=== PATIENT | female | born 1960 | race Hispanic/Latino ===

== ENCOUNTER 2018-07-07 09:39 | Emergency (ER) | payer OTHER ==
[2018-07-07 10:39] LABS: Absolute Lymphocytes (CBC) 1.2 K/uL (0.7-4.9); Absolute Monocytes 0.4 K/uL (0.1-1.3); Absolute Neutrophil 4.6 K/uL (1.8-8.0); Basophils % 0.5 % (0-1.3); Hematocrit 31.9 % (36.0-45.0); Lymphocytes % 17.7 % (15.3-44.8); MCH 25.9 pg (27.0-35.0); MCV 78.9 fL (80-100); MPV 7.6 fL (7.6-11.3); Monocytes % 6.7 % (3.3-12.3); RBC Red Blood Cell Count 4.04 M/uL (3.86-4.86)
[2018-07-07] MEDS ORDERED: FUROSEMIDE 20 MG/ 2ML VIAL ONE (10:40)
[2018-07-07] MEDS ORDERED: HYDROCODONE/APAP 5/325 MG TAB ONE (10:40)
[2018-07-07 10:45] LABS: Protime INR 1.08
--- NOTE | 2018-07-07 10:51 | RAD REPORT ---
EXAM DESCRIPTION: RAD - Chest Single View - 07/07/2018 10:39 am CLINICAL HISTORY: SOB Chest pain. COMPARISON: Chest Single View dated 10/08/2017; Chest Single View dated 06/03/2017; Chest Pa And Lat ( 2 Views) dated 02/15/2017; Chest Pa And Lat (2 Views) dated 01/11/2017 FINDINGS: Portable technique limits examination quality. Mild interstitial pulmonary edema is present. The heart is mildly enlarged in size. No displaced frac tures. IMPRESSION: Mild CHF versus volume overload pattern.
[2018-07-07 11:04] LABS: ALT/SGPT 21 U/L (12-78); AST/SGOT 15 U/L (15-37); Albumin 3.1 g/dL (3.4-5.0); Alkaline Phosphatase 119 U/L (45-117); BUN Blood Urea Nitrogen 22 mg/dL (7-18); Bicarbonate 27 mmol/L (21-32); Bilirubin Direct < 0.1 mg/dL (0-0.2); Bilirubin Total 0.2 mg/dL (0.2-1.0); Glucose Level 215 mg/dL (74-106); NT PRO-BNP 856 pg/mL (<125); Protein, Total 7.8 g/dL (6.4-8.2); Sodium Level 138 mmol/L (136-145); Troponin (Emerg Dept Use Only) < 0.02 ng/mL (0.0-0.045)
[2018-07-07 11:06] LABS: Magnesium 1.2 mg/dL (1.8-2.4)
[2018-07-07] MEDS ORDERED: MAGNESIUM SULFATE 1 gm IVPB 1 GM/100 ML BAG IV ONE (11:18)
--- NOTE | 2018-07-07 11:32 | RAD REPORT ---
EXAM DESCRIPTION: US - Extrem Venous W Compress Puma - 07/07/2018 11:16 am CLINICAL HISTORY: Lower leg pain, swelling Bilateral leg edema and swelling. COMPARISON: No comparisons TECHNIQUE: Real-time sonographic interrogation of the left and right lower extremity deep venous sys tems was performed. FINDINGS: Normal compressibility, flow augmentation, phasic flow and spontaneous flow is identified in both the left and right lower extremity deep venous systems. IMPRESSION: No sonographic evidence of left or right lower extremity deep venous thrombosis.
[2018-07-07 11:33] LABS: Urine Blood NEGATIVE (NEG); Urine Glucose NEGATIVE (NEG); Urine Protein NEGATIVE (NEG); Urine pH 5.5 (5.0-7.0)
--- NOTE | 2018-07-07 13:12 | ER ---
Nurse's Notes [facility] Name: Tessie Michaud Age: 58 yrs Sex: Female : 1960 Arrival Date: 07/07/2018 Time: 09:42 Bed 7 Private MD: Mike Ritchie Diagnosis: Edema, unspecified Presentation: 07/07 09:55 Presenting complaint: Patient states: my legs are swollen for about a week now; pain is hj 10/10; hx of CHF; reports SOB; denies fever and chills;. Transition of care: patient was not received from another setting of care. Onset of symptoms was July 07, 2018. Risk Assessment: Do you want to hurt yourself or someone else? Patient reports no desire to harm self or others. Initial Sepsis Screen: Does the patient meet any 2 criteria? No. Patient's initial sepsis screen is negative. Does the patient have a suspected source of infection? No. Patient's initial sepsis screen is negative. Care prior to arrival: None. 09:55 Method Of Arrival: Ambulatory 09:55 Acuity: KATIA 3 hj Triage Assessment: 10:00 General: Appears in no apparent distress. uncomfortable, obese, Behavior is calm, hj cooperative, appropriate for age. Pain: Complains of pain in right leg and left leg. Historical: - Allergies: 09:59 No Known Allergies; hj - Home Meds: 09:59 Albuterol Inhl [Active]; benzonatate Oral [Active]; esomeprazole magnesium Oral hj [Active]; Furosemide Oral [Active]; gabapentin Oral [Active]; Glimepiride Oral [Active]; insulin regular human inhalation [Active]; Levothroid Oral [Active]; losartan Oral [Active]; mometasone inhalation [Active]; montelukast Oral [Active]; potassium chloride (bulk) miscellaneous [Active]; Simvastatin Oral [Active]; pioglitazone Oral [Active]; Naproxen Oral [Active]; - PMHx: 10:00 Diabetes - NIDDM; Hyperlipidemia; hj - PSHx: 10:00 Cervical Cancer; hj - Immunization history:: Adult Immunizations not immunized. - Social history:: Smoking status: Patient/guardian denies using tobacco, Patient/guardian denies using alcohol. - Ebola Screening: : Patient negative for fever greater than or equal to 101.5 degrees Fahrenheit, and additional compatible Ebola Virus Disease symptoms Patient denies exposure to infectious person Patient denies travel to an Ebola-affected area in the 21 days before illness onset. Screenin:00 Abuse screen: Denies threats or abuse. Denies injuries from another. Nutritional hj screening: No deficits noted. Tuberculosis screening: No symptoms or risk factors identified. Fall Risk None identified. Assessment: 10:30 General: Appears in no apparent distress. comfortable, well groomed, well developed, sg well nourished, Behavior is calm, cooperative, appropriate for age. Pain: Complains of pain in right foot and left foot and right leg. Neuro: Level of Consciousness is awake, alert, obeys commands, Oriented to person, place, time, situation, Driver Wheelchair are equal bilaterally Moves all extremities. Full function Speech is normal, Facial symmetry appears normal. Cardiovascular: Capillary refill is brisk in bilateral fingers Patient's skin is warm and dry. Chest pain is denied. Respiratory: Reports cough that is non-productive, sinus congestion and sinus pain Airway is patent Respiratory effort is even, unlabored, Respiratory pattern is regular, symmetrical, Breath sounds are clear. GI: Abdomen is round non-distended, obese, Bowel sounds present X 4 quads. Reports normal bowel habits, tolerance of fluids, tolerance of food. : No signs and/or symptoms were reported regarding the genitourinary system. EENT: No signs and/or symptoms were reported regarding the EENT system. Derm: Skin is pink, warm \T\ dry. Musculoskeletal: Capillary refill is brisk, in bilateral fingers. Swelling present in right foot, left foot and right leg. 12:30 Reassessment: Patient appears in no apparent distress at this time. Patient and/or sg family updated on plan of care and expected duration. Pain level reassessed. Patient is alert, oriented x 3, equal unlabored respirations, skin warm/dry/pink. Patient states feeling better. Vital Signs: 10:00 BP 128 / 54; Pulse 79; Resp 18; Temp 97.9(O); Pulse Ox 98% on R/A; Weight 124.74 kg; hj Height 5 ft. 2 in. (157.48 cm); Pain 10/10; 11:41 BP 140 / 77; Pulse 76; Resp 16; Pulse Ox 98% on R/A; sg 13:11 BP 128 / 59; Pulse 77; Resp 20; Pulse Ox 100% on R/A; sg 10:00 Body Mass Index 50.30 (124.74 kg, 157.48 cm) hj ED Course: 09:42 Patient arrived in ED. mr 09:43 Mike Ritchie MD is Private Physician. mr 09:57 Triage completed. hj 10:00 Arm band placed on left wrist. hj 10:00 Patient has correct armband on for positive identification. Placed in gown. Bed in low hj position. Call light in reach. Side rails up X 1. 10:04 Reid Pulido PA is PHCP. jmm 10:04 Demarco Rinaldi MD is Attending Physician. jmm 10:37 Sergo Vences, TODD is Primary Nurse. sg 10:39 X-ray completed. Portable x-ray completed in exam room. Patient tolerated procedure la2 well. 10:39 XRAY Chest (1 view) In Process Unspecified. EDMS 10:40 Initial lab(s) drawn, by wa, sent to lab. Inserted saline lock: 22 gauge in right sg forearm, using aseptic technique. Blood collected. 10:41 EKG done, by ED staff, reviewed by Reid SANTIAGO. jb1 11:14 Ultrasound completed. Patient tolerated well. sg3 11:16 US Extremity Venous W Compression Puma In Process Unspecified. EDMS 13:11 Mike Ritchie MD is Referral Physician. [facility] 13:30 No provider procedures requiring assistance completed. IV discontinued, intact, sg bleeding controlled, No redness/swelling at site. Pressure dressing applied. Administered Medications: 10:40 Drug: [place] 5 mg-325 mg 1 tabs Route: PO; sg 11:09 Follow up: Response: No adverse reaction sg 11:30 Drug: Magnesium Sulfate 1 grams Route: IVPB; Infused Over: 1 hrs; Site: right forearm; sg 12:40 Follow up: Response: No adverse reaction; IV Status: Completed infusion sg 13:20 Drug: Lasix 20 mg Route: IVP; Site: right femoral; sg 13:32 Follow up: Response: No adverse reaction sg Outcome: 13:11 Discharge ordered by . jmm 13:30 Discharged to home ambulatory, with family. sg 13:30 Condition: good 13:30 Discharge instructions given to patient, Instructed on discharge instructions, follow up and referral plans. no drinking with medication, no driving heavy equipment, medication usage, safety practices, Demonstrated understanding of instructions, follow-up care, medications, Prescriptions given X 2. 13:34 Patient left the ED. sg Signatures: Dispatcher [employer] EDMS Quinten Luna jb1 Sergo Vences RN RN Reid Pulido PA PA jmm Rivera, Mary mr Santos Elizabeth RN TODD Raquel Reid RN RN jl7 Ardoin, Leslie la2 Kathleen Hartley sg3 Corrections: (The following items were deleted from the chart) 10:02 10:00 Pulse 79bpm; Resp 18bpm; Pulse Ox 98% RA; Temp 97.9F Oral; 124.74 kg; Height 5 hj ft. 2 in.; BMI: 50.3; Pain 10/10; hj 11:02 10:12 Raquel Reid RN is Primary Nurse. merlyn zuleta 11:29 10:30 Musculoskeletal: No signs and/or symptoms reported regarding the musculoskeletal sg system. sg
--- NOTE | 2018-07-07 13:12 | EDPHYS ---
Physician Documentation [facility] Name: Tessie Michaud Age: 58 yrs Sex: Female : 1960 Arrival Date: 07/07/2018 Time: 09:42 Bed 7 Private MD: Mike Ritchie ED Physician Demarco Rinaldi HPI: 07/07 10:17 This 58 yrs old Female presents to ER via Ambulatory with complaints of Feet jmm Swelling. 10:17 The patient presents with pain, that is acute. The complaints affect the right leg. jmm Onset: The symptoms/episode began/occurred acutely. Associated signs and symptoms: Pertinent positives: swelling. This is a 58 year old female with a history of CHF, HTN, HLP that presents to the ED with lower extremity swelling and pain for the past week. Patient states swelling has decreased on the left side. Also complains of a sinus congestion and shortness of breath. . Historical: - Allergies: 09:59 No Known Allergies; hj - Home Meds: 09:59 Albuterol Inhl [Active]; benzonatate Oral [Active]; esomeprazole magnesium Oral hj [Active]; Furosemide Oral [Active]; gabapentin Oral [Active]; Glimepiride Oral [Active]; insulin regular human inhalation [Active]; Levothroid Oral [Active]; losartan Oral [Active]; mometasone inhalation [Active]; montelukast Oral [Active]; potassium chloride (bulk) miscellaneous [Active]; Simvastatin Oral [Active]; pioglitazone Oral [Active]; Naproxen Oral [Active]; - PMHx: 10:00 Diabetes - NIDDM; Hyperlipidemia; hj - PSHx: 10:00 Cervical Cancer; hj - Immunization history:: Adult Immunizations not immunized. - Social history:: Smoking status: Patient/guardian denies using tobacco, Patient/guardian denies using alcohol. - Ebola Screening: : Patient negative for fever greater than or equal to 101.5 degrees Fahrenheit, and additional compatible Ebola Virus Disease symptoms Patient denies exposure to infectious person Patient denies travel to an Ebola-affected area in the 21 days before illness onset. ROS: 10:27 Constitutional: Negative for fever, chills, and weight loss, Cardiovascular: Negative jmm for chest pain, palpitations, and edema, Abdomen/GI: Negative for abdominal pain, nausea, vomiting, diarrhea, and constipation. 10:27 Respiratory: Positive for shortness of breath. 10:27 MS/extremity: Positive for pain. 10:27 All other systems are negative. Exam: 10:27 Head/Face: atraumatic. Eyes: EOMI, no conjunctival erythema appreciated ENT: Moist [facility] Mucus Membranes Chest/axilla: Normal chest wall appearance and motion. Cardiovascular: Regular rate and rhythm. No edema appreciated Respiratory: Normal respirations, no respiratory distress appreciated 10:27 Constitutional: The patient appears in no acute distress, alert, awake. 10:27 Abdomen/GI: Inspection: obese Bowel sounds: normal. 10:27 Back: ROM is normal. 10:27 Musculoskeletal/extremity: ROM: intact in all extremities. 10:27 Skin: Appearance: Color: normal in color. 10:27 Neuro: Orientation: is normal, Mentation: is normal, Memory: is normal. 10:27 Psych: Behavior/mood is pleasant, cooperative. 10:27 Musculoskeletal/extremity: Edema noted to the right lower leg, full dorsalis pedis [facility] pulse, compartments are soft. Vital Signs: 10:00 BP 128 / 54; Pulse 79; Resp 18; Temp 97.9(O); Pulse Ox 98% on R/A; Weight 124.74 kg; hj Height 5 ft. 2 in. (157.48 cm); Pain 10/10; 11:41 BP 140 / 77; Pulse 76; Resp 16; Pulse Ox 98% on R/A; sg 13:11 BP 128 / 59; Pulse 77; Resp 20; Pulse Ox 100% on R/A; sg 10:00 Body Mass Index 50.30 (124.74 kg, 157.48 cm) MDM: 10:17 Patient medically screened. [facility] 10:29 Data reviewed: vital signs, nurses notes. [facility] 12:52 Data reviewed: lab test result(s), EKG, radiologic studies, plain films, ultrasound. [facility] Counseling: I had a detailed discussion with the patient and/or guardian regarding: the historical points, exam findings, and any diagnostic results supporting the discharge/admit diagnosis, lab results, radiology results, the need for outpatient follow up, to return to the emergency department if symptoms worsen or persist or if there are any questions or concerns that arise at home. 13:10 ED course: I discussed the patient with Dr. Ritchie whom will see the patient in clinic [facility] tomorrow. Advises to increase furosemide to 40 mg BID. Patient is alert and non toxic in appearance in the ED. Vitals WNL. . 07/07 10:06 Order name: Basic Metabolic Panel; Complete Time: 11:09 [facility] 07/07 10:06 Order name: CBC with Diff; Complete Time: 10:47 [facility] 07/07 10:06 Order name: LFT's; Complete Time: 11:09 [facility] 07/07 10:06 Order name: Magnesium; Complete Time: 11:09 [facility] 07/07 10:06 Order name: NT PRO-BNP; Complete Time: 11:09 [facility] 07/07 10:06 Order name: PT-INR; Complete Time: 10:47 [facility] 07/07 10:06 Order name: Troponin (emerg Dept Use Only); Complete Time: 11:09 [facility] 07/07 10:06 Order name: XRAY Chest (1 view); Complete Time: 10:52 [facility] 07/07 10:06 Order name: EKG; Complete Time: 10:07 [facility] 07/07 10:20 Order name: US Extremity Venous W Compression Puma; Complete Time: 11:33 [facility] 07/07 11:28 Order name: Urine Dipstick--Ancillary (enter results); Complete Time: 11:44 07/07 10:06 Order name: Cardiac monitoring; Complete Time: 10:32 [facility] 07/07 10:06 Order name: EKG - Nurse/Tech; Complete Time: 10:54 [facility] 07/07 10:06 Order name: IV Saline Lock; Complete Time: 10:32 [facility] 07/07 10:06 Order name: Labs collected and sent; Complete Time: 10:32 [facility] 07/07 10:06 Order name: O2 Per Protocol; Complete Time: 10:32 [facility] 07/07 10:06 Order name: O2 Sat Monitoring; Complete Time: 10:32 jm Administered Medications: 10:40 Drug: [place] 5 mg-325 mg 1 tabs Route: PO; sg 11:09 Follow up: Response: No adverse reaction sg 11:30 Drug: Magnesium Sulfate 1 grams Route: IVPB; Infused Over: 1 hrs; Site: right forearm; sg 12:40 Follow up: Response: No adverse reaction; IV Status: Completed infusion sg 13:20 Drug: Lasix 20 mg Route: IVP; Site: right femoral; sg 13:32 Follow up: Response: No adverse reaction sg Disposition: 07/08 10:41 Co-signature as Attending Physician, Demarco Rinaldi MD. ma2 Disposition: 07/07/18 13:11 Discharged to Home. Impression: Edema, unspecified. - Condition is Stable. - Discharge Instructions: Peripheral Edema. - Prescriptions for Tylenol- Codeine #3 300-30 mg Oral Tablet - take 1 tablet by ORAL route every 6 hours As needed; 6 tablet. Lasix 40 mg Oral Tablet - take 1 tablet by ORAL route 2 times per day for 3 days; 6 tablet. - Medication Reconciliation Form, Thank You Letter, Antibiotic Education, Prescription Opioid Use form. - Follow up: Mike Ritchie MD; When: Tomorrow; Reason: Recheck today's complaints, Continuance of care, Re-evaluation by your physician. Signatures: Dispatcher [employer] EDSergo Jung RN RN sg Mickail, Joel, PA PA jmm Joaquin, Henry, RN RN hj Alzahri, Mohammad, MD MD ma2 Corrections: (The following items were deleted from the chart) 07/07 13:34 13:11 07/07/2018 13:11 Discharged to Home. Impression: Edema, unspecified. Condition is sg Stable. Forms are Medication Reconciliation Form, Thank You Letter, Antibiotic Education, Prescription Opioid Use. Follow up: Mike Ritchie; When: Tomorrow; Reason: Recheck today's complaints, Continuance of care, Re-evaluation by your physician. briana
[2018-07-07 13:39] VITALS: TEMP 97.9
[2018-07-07 13:41] VITALS: BP 128/59; O2SAT 100
--- NOTE | 2018-07-08 10:09 | EKG ---
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
== END 2018-07-07 13:34 | disposition home or self-care (01) ==
LOC: ER 09:39
DX: R60.9 Edema, unspecified (principal); E78.5 Hyperlipidemia, unspecified; E11.9 Type 2 diabetes mellitus without complications; I10 Essential (primary) hypertension; Z79.4 Long term (current) use of insulin; Z85.41 Personal history of malignant neoplasm of cervix uteri
CPT/HCPCS: 36415; 71045; 80048; 80076; 81003; 83735; 83880; 84484; 85025; 85610; 93005; 93970; 96365; 96375; 99284; J1940; J3475

== ENCOUNTER 2018-10-08 17:46 | Emergency (ER) | payer OTHER ==
--- OUTSIDE RECORDS SUMMARY | 2018-10-08 17:48 | XMS REPORT ---
:1960 [facility] Address [address] [place] [address] Care Team Providers Name Role Phone Unavailable Unavailable Unavailable Payers Payer Name Policy Type Policy Number Effective Date Expiration Date Problems This patient has no known problems. Allergies, Adverse Reactions, Alerts Allergy Allergy Status Severity Reaction(s) Onset Inactive Treating Comments Name Type Date Date Clinician No Known DA Active U 2018-08 Allergies -12 00:00:0 0 No Known DA Active U 2018-06 Allergies - 00:00:0 0 Medications This patient has no known medications.
[2018-10-08] MEDS ORDERED: ONDANSETRON 4 MG/2 ML VIAL ONE (18:42)
[2018-10-08] MEDS ORDERED: FENTANYL CITR 100 MCG/2 ML ONE ×2 (18:42→20:57)
[2018-10-08 19:13] LABS: Urine Blood 3+ (NEG); Urine Glucose 3+ (NEG); Urine Protein NEGATIVE (NEG); Urine Specific Gravity <1.005 (1.005-1.030); Urine pH 5.5 (5.0-7.0)
[2018-10-08 19:20] LABS: Absolute Lymphocytes (CBC) 1.4 K/uL (0.7-4.9); Absolute Monocytes 0.7 K/uL (0.1-1.3); Absolute Neutrophil 5.8 K/uL (1.8-8.0); Basophils % 0.6 % (0-1.3); Hematocrit 32.3 % (36.0-45.0); Lymphocytes % 17.2 % (15.3-44.8); MPV 7.8 fL (7.6-11.3); Monocytes % 7.9 % (3.3-12.3); RBC Red Blood Cell Count 4.19 M/uL (3.86-4.86)
[2018-10-08 19:29] LABS: Urine RBC 20-50 /HPF (NONE SEEN)
[2018-10-08 19:30] LABS: Urine Bacteria >50 /HPF (<20); Urine Culture Reflex Order REFLEXED
[2018-10-08 19:48] LABS: Potassium 3.6 mmol/L (3.5-5.1)
[2018-10-08] MEDS ORDERED: NA CHLORIDE 0.9% 500 ML ONE (20:15)
--- NOTE | 2018-10-08 21:01 | RAD REPORT ---
EXAM DESCRIPTION: CT - Chest Abdomen Pelvis W Cont - 10/08/2018 8:23 pm CLINICAL HISTORY: Chest and abdominal pain status post fall COMPARISON: CT chest February 02, 2017 TECHNIQUE: Computed axial tomography of the chest, abdomen and pelvis was obtained. 100 cc Isovue-30 0 was administered intravenously. Oral contrast was not requested. This limits evaluation of bowel. All CT scans are performed using dose optimization technique as appropriate and may include automated exposure control or mA/KV adjustment according to patient size. FINDINGS: A pleural effusion is not present. A nondisplaced fracture involves the eighth left lateral rib. A pulmonary contusion is not seen. A pn eumothorax is not noted. The patient has had recent chest surgery . There is mild stranding within the anterior subcutaneous f at. A median sternotomy has been performed. Small amount of fluid is present within the anterior medi astinum as well as the anterior pericardiac fat. Mild bibasilar lung atelectasis is seen The liver, spleen, pancreas, adrenals, kidneys and bladder do not demonstrate a traumatic injury. Air is present within the bladder. A porcelain gallbladder is noted. IMPRESSION: Nondisplaced fracture involving the eighth left lateral rib Small amount of fluid within the anterior mediastinum and anterior pericardiac fat most likely relate d to recent surgery rather than trauma No traumatic injury involving the abdomen/pelvis Air within the bladder presumably related to instrumentation. Infection can also have this appearance .
--- NOTE | 2018-10-08 21:12 | ER ---
Nurse's Notes [facility] Name: Tessie Michaud Age: 58 yrs Sex: Female : 1960 Arrival Date: 10/08/2018 Time: 17:50 Bed 18 Private MD: Mike Ritchie Diagnosis: Fracture of one rib;Urinary tract infection, site not specified Presentation: 10/08 18:02 Presenting complaint: Patient states: Fell from standing position on Sunday, reports sg hurting her left breast, left rib pain and left lower back pain, denies LOC. Care prior to arrival: None. Mechanism of Injury: Fall from standing position. Trauma event details:. 18:02 Acuity: KATIA 3 sg 18:02 Method Of Arrival: Wheelchair sg 19:16 Transition of care: patient was not received from another setting of care. Onset of jd3 symptoms was October 08, 2018. Risk Assessment: Do you want to hurt yourself or someone else? Patient reports no desire to harm self or others. Initial Sepsis Screen: Does the patient meet any 2 criteria? No. Patient's initial sepsis screen is negative. Does the patient have a suspected source of infection? No. Patient's initial sepsis screen is negative. Historical: - Allergies: 18:04 No Known Allergies; sg - PMHx: 18:04 Diabetes - NIDDM; Hyperlipidemia; sg - PSHx: 18:04 Cervical Cancer; open heart surgery; sg - Immunization history:: Adult Immunizations unknown. - Social history:: Smoking status: unknown. - Ebola Screening: : Patient negative for fever greater than or equal to 101.5 degrees Fahrenheit, and additional compatible Ebola Virus Disease symptoms. Screenin:49 Abuse screen: Denies threats or abuse. Denies injuries from another. Nutritional jl7 screening: No deficits noted. Tuberculosis screening: No symptoms or risk factors identified. 19:16 Fall Risk IV access (20 points). Ambulatory Aid- None/Bed Rest/Nurse Assist (0 pts). jd3 Gait- Normal/Bed Rest/Wheelchair (0 pts) Mental Status- Oriented to own ability (0 pts). Total Mcgraw Fall Scale indicates No Risk (0-24 pts). Assessment: 18:00 General: Appears in no apparent distress. uncomfortable, Behavior is calm, cooperative. jl7 Pain: Complains of pain in left ribs Pain does not radiate. Pain currently is 8 out of 10 on a pain scale. Pain began 2-3 days ago. Is continuous. Neuro: Level of Consciousness is awake, alert, obeys commands, Oriented to person, place, time, situation. Cardiovascular: Patient's skin is warm and dry. Respiratory: Airway is patent Respiratory effort is even, unlabored, Respiratory pattern is regular, symmetrical. GI: No signs and/or symptoms were reported involving the gastrointestinal system. : Reports pelvic pressure Denies burning with urination, pain. EENT: No signs and/or symptoms were reported regarding the EENT system. Derm: Skin is pink, warm \T\ dry. 19:05 Reassessment: Patient appears in no apparent distress at this time. Patient and/or iw family updated on plan of care and expected duration. Pain level reassessed. Patient is alert, oriented x 3, equal unlabored respirations, skin warm/dry/pink. 19:15 Reassessment: Patient appears in no apparent distress at this time. Patient and/or jd3 family updated on plan of care and expected duration. Pain level reassessed. Patient is alert, oriented x 3, equal unlabored respirations, skin warm/dry/pink. 20:19 Reassessment: Patient appears in no apparent distress at this time. Patient and/or jd3 family updated on plan of care and expected duration. Pain level reassessed. Patient is alert, oriented x 3, equal unlabored respirations, skin warm/dry/pink. 21:33 Reassessment: Patient appears in no apparent distress at this time. Patient and/or jd3 family updated on plan of care and expected duration. Pain level reassessed. Patient is alert, oriented x 3, equal unlabored respirations, skin warm/dry/pink. Vital Signs: 18:03 BP 176 / 86; Pulse 77; Resp 19; Temp 97.7; Pulse Ox 100% on NC; Pain 0/10; sg 19:15 BP 112 / 58; Pulse 99; Resp 17 S; Pulse Ox 98% on 2 lpm NC; jd3 20:19 BP 132 / 77; Pulse 94; Resp 17 S; Pulse Ox 100% on 2 lpm NC; jd3 21:29 BP 117 / 71; Pulse 98; Resp 18 S; Pulse Ox 97% on 2 lpm NC; jd3 Manny Coma Score: 18:03 Eye Response: spontaneous(4). Verbal Response: oriented(5). Motor Response: obeys sg commands(6). Total: 15. Trauma Score (Adult): 18:03 Eye Response: spontaneous(1); Verbal Response: oriented(1); Motor Response: obeys sg commands(2); Systolic BP: > 89 mm Hg(4); Respiratory Rate: 10 to 29 per min(4); Manny Score: 15; Trauma Score: 12 ED Course: 17:50 Patient arrived in ED. sb2 17:50 Mike Ritchie MD is Private Physician. sb2 18:03 Triage completed. sg 18:07 Raquel Reid, TODD is Primary Nurse. jl7 18:13 Kirit Guerrero PA is PHCP. jr8 18:13 Timothy Mix MD is Attending Physician. jr8 18:40 Missed attempt(s): 22 gauge in right forearm. Bleeding controlled, band aid applied, jl7 catheter tip intact. 18:40 Urine collected: clean catch specimen, clear. jl7 18:49 Patient has correct armband on for positive identification. Bed in low position. Call jl7 light in reach. Side rails up X 1. Pulse ox on. NIBP on. Warm blanket given. 19:05 Initial lab(s) drawn, by me, sent to lab. Inserted saline lock: 20 gauge in right iw antecubital area, using aseptic technique. Blood collected. 19:16 Arm band placed on. jd3 20:[address] via stretcher. vm2 21:11 Mike Ritchie MD is Referral Physician. jr8 21:30 No provider procedures requiring assistance completed. IV discontinued, intact, jd3 bleeding controlled, No redness/swelling at site. Pressure dressing applied. Administered Medications: 19:05 Drug: fentaNYL (PF) 75 mcg Route: IVP; Site: right antecubital; iw 21:32 Follow up: Response: No adverse reaction jd3 19:05 Drug: Zofran 4 mg Route: IVP; Site: right antecubital; iw 21:32 Follow up: Response: No adverse reaction jd3 20:07 Drug: NS 0.9% 500 ml Route: IV; Rate: bolus; Site: right antecubital; jd3 21:32 Follow up: Response: No adverse reaction; IV Status: Completed infusion; IV Intake: jd3 500ml 20:50 Drug: fentaNYL (PF) 75 mcg Route: IVP; Site: right antecubital; rr5 21:19 Follow up: Response: No adverse reaction jd3 21:19 Drug: Rocephin 1 grams Route: IV; Rate: calculated rate; Site: right antecubital; jd3 21:32 Follow up: Response: No adverse reaction; IV Status: Completed infusion jd3 Intake: 18:03 PO: 0ml; Total: 0ml. sg 21:32 IV: 500ml; Total: 500ml. jd3 Outcome: 21:11 Discharge ordered by MD. jr8 21:46 Discharged to home ambulatory. jd3 21:46 Condition: stable 21:46 Discharge instructions given to patient, family, Instructed on discharge instructions, follow up and referral plans. medication usage, Demonstrated understanding of instructions, follow-up care, medications, Prescriptions given X 2. 21:47 Patient left the ED. jd3 Addendum: 10/12/2018 08:12 Addendum: Culture Results: Positive urine culture. Prescription called-in to pharmacy a a5 of choice. to [facility] pharmacy [place] per pt's request. Signatures: Sergo Vences RN RN sg Niru Kim RN RN iw Calderon, Audri, RN RN aa5 Kirit Guerrero PA PA jr8 Raquel Reid RN RN jl7 Gege Benoit Jonathon, RN RN jd3 Nati Ritter sb2 Rito Jarvis RN RN rr5 Corrections: (The following items were deleted from the chart) 10/08 21:30 19:15 BP 112 / 58; Pulse 99bpm; Resp 17bpm; Spontaneous; Pulse Ox 98% RA; jd3 jd3 21:30 20:19 BP 132 / 77; Pulse 94bpm; Resp 17bpm; Spontaneous; Pulse Ox 100% RA; jd3 jd3
--- NOTE | 2018-10-08 21:12 | EDPHYS ---
Physician Documentation [facility] Name: Tessie Michaud Age: 58 yrs Sex: Female : 1960 Arrival Date: 10/08/2018 Time: 17:50 Bed 18 Private MD: Mike Ritchie ED Physician Timothy Mix HPI: 10/08 19:13 This 58 yrs old Female presents to ER via Wheelchair with complaints of Fall jr8 Injury - CHEST. 19:13 Details of fall: The patient fell from an upright position. Onset: The symptoms/episode jr8 began/occurred acutely, 4 day(s) ago. 19:13 Associated injuries: The patient sustained injury to the chest, injury to the abdomen. jr8 Severity of symptoms: At their worst the symptoms were moderate, in the emergency department the symptoms are unchanged. The patient has not experienced similar symptoms in the past. The patient has not recently seen a physician. Patient stated that she had open heart surgery about 1 month ago. Fell in bathroom 4 days ago. Has had pain to left chest and abdomen since fall . Historical: - Allergies: 18:04 No Known Allergies; sg - PMHx: 18:04 Diabetes - NIDDM; Hyperlipidemia; sg - PSHx: 18:04 Cervical Cancer; open heart surgery; sg - Immunization history:: Adult Immunizations unknown. - Social history:: Smoking status: unknown. - Ebola Screening: : Patient negative for fever greater than or equal to 101.5 degrees Fahrenheit, and additional compatible Ebola Virus Disease symptoms. ROS: 19:13 Eyes: Negative for injury, pain, redness, and discharge, ENT: Negative for injury, jr8 pain, and discharge, Neck: Negative for injury, pain, and swelling, Respiratory: Negative for shortness of breath, cough, wheezing, and pleuritic chest pain, Back: Negative for injury and pain, MS/Extremity: Negative for injury and deformity, Skin: Negative for injury, rash, and discoloration, Neuro: Negative for headache, weakness, numbness, tingling, and seizure. 19:13 Cardiovascular: Positive for chest pain, with cough, with movement, Negative for edema, orthopnea, palpitations, paroxysmal nocturnal dyspnea. 19:13 Abdomen/GI: Positive for abdominal pain, Negative for nausea, vomiting, and diarrhea, abdominal cramps, abdominal distension. Exam: 19:13 Eyes: Pupils equal round and reactive to light, extra-ocular motions intact. Lids and jr8 lashes normal. Conjunctiva and sclera are non-icteric and not injected. Cornea within normal limits. Periorbital areas with no swelling, redness, or edema. ENT: Nares patent. No nasal discharge, no septal abnormalities noted. Tympanic membranes are normal and external auditory canals are clear. Oropharynx with no redness, swelling, or masses, exudates, or evidence of obstruction, uvula midline. Mucous membranes moist. Neck: Trachea midline, no thyromegaly or masses palpated, and no cervical lymphadenopathy. Supple, full range of motion without nuchal rigidity, or vertebral point tenderness. No Meningismus. Cardiovascular: Regular rate and rhythm with a normal S1 and S2. No gallops, murmurs, or rubs. Normal PMI, no JVD. No pulse deficits. Respiratory: Lungs have equal breath sounds bilaterally, clear to auscultation and percussion. No rales, rhonchi or wheezes noted. No increased work of breathing, no retractions or nasal flaring. Back: No spinal tenderness. No costovertebral tenderness. Full range of motion. Skin: Warm, dry with normal turgor. Normal color with no rashes, no lesions, and no evidence of cellulitis. MS/ Extremity: Pulses equal, no cyanosis. Neurovascular intact. Full, normal range of motion. Neuro: Awake and alert, GCS 15, oriented to person, place, time, and situation. Cranial nerves II-XII grossly intact. Motor strength 5/5 in all extremities. Sensory grossly intact. Cerebellar exam normal. Normal gait. 19:13 Chest/axilla: Inspection: normal, Palpation: tenderness, that is moderate, of the chest wall under left breast and to anteriolateral left chest wall . 19:13 Abdomen/GI: Inspection: bruising, anterior aspect of left lateral abdomen, obese Bowel sounds: active, Palpation: soft, in all quadrants, mild abdominal tenderness, in the anterior aspect of left lateral abdomen and left upper quadrant, mass, is not appreciated, rebound tenderness, is not appreciated, voluntary guarding, is not appreciated, involuntary guarding, is not appreciated, no appreciated organomegaly, Indicators: McBurney's point is not tender, Guzmán's sign is negative, Rovsing's sign is negative, Liver: tenderness, is not appreciated. Vital Signs: 18:03 BP 176 / 86; Pulse 77; Resp 19; Temp 97.7; Pulse Ox 100% on NC; Pain 0/10; sg 19:15 BP 112 / 58; Pulse 99; Resp 17 S; Pulse Ox 98% on 2 lpm NC; jd3 20:19 BP 132 / 77; Pulse 94; Resp 17 S; Pulse Ox 100% on 2 lpm NC; jd3 21:29 BP 117 / 71; Pulse 98; Resp 18 S; Pulse Ox 97% on 2 lpm NC; jd3 Arabi Coma Score: 18:03 Eye Response: spontaneous(4). Verbal Response: oriented(5). Motor Response: obeys sg commands(6). Total: 15. Trauma Score (Adult): 18:03 Eye Response: spontaneous(1); Verbal Response: oriented(1); Motor Response: obeys sg commands(2); Systolic BP: > 89 mm Hg(4); Respiratory Rate: 10 to 29 per min(4); Arabi Score: 15; Trauma Score: 12 MDM: 18:14 Patient medically screened. jr8 21:11 Data reviewed: vital signs, nurses notes, lab test result(s), radiologic studies, CT jr8 scan, and as a result, I will discharge patient. Data interpreted: Pulse oximetry: on room air is 100 %. Interpretation: normal. Counseling: I had a detailed discussion with the patient and/or guardian regarding: the historical points, exam findings, and any diagnostic results supporting the discharge/admit diagnosis, lab results, radiology results, the need for outpatient follow up, a family practitioner, to return to the emergency department if symptoms worsen or persist or if there are any questions or concerns that arise at home. 10/08 18:26 Order name: CBC with Diff [facility] 10/08 18:26 Order name: Basic Metabolic Panel [facility] 10/08 18:30 Order name: Urine Microscopic Only [facility] 10/08 18:41 Order name: Urine Dipstick--Ancillary (enter results) ms 10/08 19:14 Order name: Urine Dipstick-Ancillary; Complete Time: 19:16 [facility] 10/08 19:24 Order name: CBC with Automated Diff; Complete Time: 19:35 [facility] 10/08 19:30 Order name: Urine Microscopic Only; Complete Time: 19:35 [facility] 10/08 19:49 Order name: Basic Metabolic Panel; Complete Time: 19:53 [facility] 10/08 19:54 Order name: CT Chest, Abdomen, Pelvis - W/Contrast [facility] 10/08 21:03 Order name: CT; Complete Time: 21:10 [facility] 10/08 18:26 Order name: IV; Complete Time: 19:05 8 10/08 18:30 Order name: Urine Dipstick-Ancillary (obtain specimen); Complete Time: 19:05 [facility] Administered Medications: 19:05 Drug: fentaNYL (PF) 75 mcg Route: IVP; Site: right antecubital; iw 21:32 Follow up: Response: No adverse reaction jd3 19:05 Drug: Zofran 4 mg Route: IVP; Site: right antecubital; iw 21:32 Follow up: Response: No adverse reaction jd3 20:07 Drug: NS 0.9% 500 ml Route: IV; Rate: bolus; Site: right antecubital; jd3 21:32 Follow up: Response: No adverse reaction; IV Status: Completed infusion; IV Intake: jd3 500ml 20:50 Drug: fentaNYL (PF) 75 mcg Route: IVP; Site: right antecubital; rr5 21:19 Follow up: Response: No adverse reaction jd3 21:19 Drug: Rocephin 1 grams Route: IV; Rate: calculated rate; Site: right antecubital; jd3 21:32 Follow up: Response: No adverse reaction; IV Status: Completed infusion jd3 Disposition: 10/08/18 21:11 Discharged to Home. Impression: Fracture of one rib, Urinary tract infection, site not specified. - Condition is Stable. - Discharge Instructions: Rib Fracture, Urinary Tract Infection, Adult. - Prescriptions for Tramadol 50 mg Oral Tablet - take 1 tablet by ORAL route every 8 hours as needed; 12 tablet. Macrobid 100 mg Oral Capsule - take 1 capsule by ORAL route every 12 hours for 7 days; 14 capsule. - Medication Reconciliation Form, Thank You Letter, Antibiotic Education, Prescription Opioid Use form. - Follow up: Mike Ritchie MD; When: 5 - 6 days; Reason: Recheck today's complaints, Continuance of care, Re-evaluation by your physician. - Problem is new. - Symptoms have improved. Addendum: 10/11/2018 01:36 Co-signature as Attending Physician, Timothy Mix MD. g s Signatures: Dispatcher [employer] EDSergo Jung, RN RN Niru Nix RN RN Kirit Sahu PA PA jr8 Raquel Reid RN RN jl7 Timothy Mix MD MD gs Davies, Jonathon, RN RN jd3 Rito Jarvis RN RN rr5 Corrections: (The following items were deleted from the chart) 10/08 19:14 19:13 Onset: The symptoms/episode began/occurred acutely, 2 day(s) ago, jr8 jr8 21:47 21:11 10/08/2018 21:11 Discharged to Home. Impression: Fracture of one rib; Urinary jd3 tract infection, site not specified. Condition is Stable. Forms are Medication Reconciliation Form, Thank You Letter, Antibiotic Education, Prescription Opioid Use. Follow up: Mike Ritchie; When: 5 - 6 days; Reason: Recheck today's complaints, Continuance of care, Re-evaluation by your physician. Problem is new. Symptoms have improved. jr8
[2018-10-08] MEDS ORDERED: CEFTRIAXONE/SWI 1gm 1 GM/10 ML SYR ONE (21:23)
[2018-10-08 21:56] VITALS: TEMP 97.7
[2018-10-08 22:01] VITALS: BP 117/71; O2SAT 97
== END 2018-10-08 21:47 | disposition home or self-care (01) ==
LOC: ER 17:46
DX: S22.32XA Fracture of one rib, left side, initial encounter for closed fracture (principal); W01.0XXA Fall on same level from slipping, tripping and stumbling without subsequent striking against object, initial encounter; Y92.002 Bathroom of unspecified non-institutional (private) residence as the place of occurrence of the external cause; N39.0 Urinary tract infection, site not specified
CPT/HCPCS: 36415; 71260; 74177; 80048; 81003; 81015; 85025; 87077; 87086; 87088; 87186; 96361; 96374; 96375; 99284; J0696; J2405; J3010; Q9967

== ENCOUNTER 2019-02-28 16:31 | Emergency (ER) | payer OTHER ==
--- OUTSIDE RECORDS SUMMARY | 2019-02-28 16:32 | XMS REPORT ---
:1960 [facility] Address [address] [place] [address] Care Team Providers Name Role Phone Unavailable Unavailable Unavailable Payers Payer Name Policy Type Policy Number Effective Date Expiration Date Problems This patient has no known problems. Allergies, Adverse Reactions, Alerts Allergy Allergy Status Severity Reaction(s) Onset Inactive Treating Comments Name Type Date Date Clinician No Known DA Active U 2018-08 Allergies - 00:00:0 0 No Known DA Active U 2018-06 Allergies - 00:00:0 0 Medications This patient has no known medications. Results Test Description Test Time Test Comments Text Results Atomic Results Result Comments HEART 2018-09-02 RUN DATE: 14:57:00 09/02/18 [facility] PAGE 1 RUN TIME: 9362 Specimen Inquiry RUN USER: INTERFACE PATIENT: ZINA WHYTE LOC: [place] U #: [id number] AGE/SX: 58/F ROOM: [facility] RE08/30/18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 MITRAL VALVE, NOS - MITRAL VAVLE LEAFLETS CLINICAL HISTORY SEVERAL MITRAL STENOSIS CPT CODES CPT CODE(S): 95801 , 59693 , , , , , FINAL DIAGNOSIS Mitral valve, leaflets, excision: VALVE LEAFLETS WITH MYXOID DEGENERATION, CHRONIC INFLAMMATION, AND OSSIFICATION BACTERIAL COLONIES IDENTIFIED GROSS DESCRIPTION Mitral valve leaflets. The specimen consists of several pieces of valve measuring in aggregate 3.7 x 3 x 0.7 cm. It is heavily calcified with a thick wall. There is a finger-like projected chordae tendineae present. Section submitted for decalcification as A1. /tc/pdb MICROSCOPIC DESCRIPTION Mitral valve leaflets. The valve leaflets demonstrate myxoid degeneration, chronic inflammation, erosion and bacterial colonies. Focal ossification is also identified. /cm CONTINUED ON NEXT PAGE RUN DATE: 09/02/18 [facility] PAGE 2 RUN TIME: 1456 Specimen Inquiry RUN USER: INTERFACE SPEC #: [id number] PATIENT: ZINA WHYTE #[id number] (Continued) Signed SIGNATURE ON FILE Bere Ward 09/02/18 4932 END OF REPORT
--- NOTE | 2019-02-28 18:01 | RAD REPORT ---
EXAM DESCRIPTION: RAD - Lumbar Spine 3 Views - 02/28/2019 5:29 pm CLINICAL HISTORY: Back pain FINDINGS: The alignment of the lumbar spine is satisfactory. No fracture or dislocation is seen. Osteoporosis. Mild spondylosis involves the spine. Round opacity in the right upper quadrant represents calcification of gallbladder wall seen on prior CAT scan
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
[2019-02-28 19:36] VITALS: BP 118/72; TEMP 98.1; O2SAT 97
== END 2019-02-28 18:33 | disposition home or self-care (01) ==
LOC: ER 16:31
DX: M54.5 Low back pain (principal); M19.90 Unspecified osteoarthritis, unspecified site; E11.9 Type 2 diabetes mellitus without complications; E78.5 Hyperlipidemia, unspecified
CPT/HCPCS: 72100; 99283

== ENCOUNTER 2019-05-06 23:34 | Inpatient (IN) | payer OTHER ==
--- OUTSIDE RECORDS SUMMARY | 2019-05-06 23:36 | XMS REPORT | Summary of Care ---
:1960 Author Organization [facility] Address [address] [place] [id number] Care Team Providers Name Role Phone Nahomi Lewis NP Primary Care Provider Jaron Gonzalez Primary Care Provider Sergo Dewitt MD Unavailable Unavailable Marlee Weston MD Unavailable Unavailable Mima Johnson Primary Care Provider Pcp, Patient Does Not Have A Primary Care Provider Tyrese Ritchie DO Primary Care Provider Unavailable Encounter Details Date Type Department Care Team Description 01/14/2015 Orders Only [facility] Doctor Unassigned, No [address] [facility] Name [place], [place] [id number] [place] [id number] Allergies No Known Allergiesdocumented as of this encounter (statuses as of 04/22/2019) Medications No known medicationsdocumented as of this encounter (statuses as of 04/22/2019) Active Problems Problem Noted Date Positive H. pylori test 05/30/2017 Overview: Added automatically from request for surgery [id number] Acute cystitis without hematuria 01/05/2017 Chronic idiopathic constipation 01/02/2017 Personal history of radiation therapy 12/29/2016 Declining functional status 12/28/2016 Morbid obesity with body mass index of 40.0-49.9 08/03/2016 Morbid obesity with body mass index of 50 or higher 08/03/2016 Fungal infection 03/29/2015 Asthma Depression Diabetes GERD (gastroesophageal reflux disease) Hypertension Thyroid disease documented as of this encounter (statuses as of 04/22/2019) Social History Tobacco Use Types Packs/Day Years Used Date Never Assessed Sex Assigned at Date Recorded Not on file Job Start Date Occupation Industry Not on file Not on file Not on file Travel History Travel Start Travel End No recent travel history available. documented as of this encounter Last Filed Vital Signs Not on filedocumented in this encounter Plan of Treatment Health Maintenance Due Date Last Done Comments HEPATITIS C (HCV) SCREEN 1960 EYE EXAM 1970 URINE MICROALBUMIN 1970 DTaP,Tdap,and Td Vaccines (1 - 1979 Tdap) COLONOSCOPY 2010 Zoster Recombinant Vaccine 2010 (SHINGRIX) (1 of 2) LUNG CANCER SCREEN: Recommended 2015 for age 55-80 with 30 + pack year history FOOT EXAM 03/12/2016 03/12/2015 MAMMOGRAM 02/01/2018 02/01/2017 LDL-C 03/30/2018 03/30/2017 CREATININE (SERUM) 08/03/2018 08/03/2017, 06/29/2017, 03/30/2017, Additional history exists HgA1C 11/21/2018 05/24/2018, 06/29/2017, 03/30/2017 INFLUENZA VACCINE 05/25/2019 PAP SMEAR 12/29/2019 12/28/2016 PNEUMOCOCCAL 0-64 YEARS COMBINED Completed 05/26/2017 SERIES documented as of this encounter Implants Implanted Type Area Expediter Service Order Device Shelf Model / Serial Identifier Expiration / Lot Date Lens LENS Left: Eye Javi 08/23/2020 [id number] / Implanted: Qty: 1 on 07/06/2016 by Johnathon Kent MD at [facility] [id number] / [id number] Acrysof Iq LENS Javi 04/23/2021 [id number] / Implanted: Qty: 1 on 08/03/2016 by Johnathon Kent MD at [facility] [id number] / [id number] documented as of this encounter Procedures Procedure Name Priority Date/Time Associated Diagnosis Comments PATIENT QUESTIONNAIRE Routine 01/14/2015 12:01 AM CDT documented in this encounter Results Not on filedocumented in this encounter
--- OUTSIDE RECORDS SUMMARY | 2019-05-06 23:36 | XMS REPORT ---
:1960 Author Organization [facility] Address [address] [place] [address] Care Team Providers Name Role Phone Unavailable [...] Comments HEART 2018-09-02 RUN DATE: 14:57:00 09/02/18 [facility] - Lab PAGE 1 RUN TIME: 2912 Specimen Inquiry RUN USER: INTERFACE PATIENT: ZINA WHYTE LOC: DELISA U #: [id number] AGE/SX: 58/F ROOM: [facility] RE08/30/18[facility] DR: Darron Robins MD : 60 BED: A DIS: STATUS: ADM IN TLOC: SPEC #: [id number] RECD: 08/30/18 STATUS: [facility] # : [id number] [place]: 08/30/18 [facility] DR: Darron Robins MD ENTERED: 08/30/18 SP TYPE: HEARTV OTHR DR: ORDERED: BREANA, SURG PATH LVL 4 CODES: [id number] - MITRAL VALVE, N [id number] [id number] - MITRAL VALVE, N BONE FORMATION [id number] L49547 - MITRAL VALVE, N CHRONIC INFLAMM [id number] C10898 - MITRAL VALVE, N MYXOID DEGENERA [id number] [id number] - MITRAL VALVE, N EXCISION, NOS PROCEDURES: DECAL (08/30/18-1821) SURG PATH LVL 4 (08/30/18-1511) TISSUES: A. MITRAL VALVE, NOS - MITRAL VAVLE LEAFLETS CLINICAL HISTORY SEVERAL MITRAL STENOSIS CPT CODES CPT CODE(S): 97754 , 12323 , , , , , FINAL DIAGNOSIS [...] CONTINUED ON NEXT PAGE RUN DATE: 09/02/18 [facility] - Lab PAGE 2 RUN TIME: 1456 Specimen Inquiry RUN USER: INTERFACE SPEC #: [id number] PATIENT: ZINA WHYTE #[id number] (Continued) Signed SIGNATURE ON FILE Bere Ward 09/02/18 8180 END OF REPORT
--- OUTSIDE RECORDS SUMMARY | 2019-05-06 23:36 | XMS REPORT | Summary of Care ---
:1960 Author Organization [facility] Address [address] [place] [address] Care Team Providers Name Role Phone Sergo Dewitt MD Unavailable Unavailable Marlee Weston MD Unavailable Unavailable Tyrese Ritchie DO Primary Care Provider Unavailable Encounter Details Date Type Department Care Team Description 04/21/2019 Orders Only [facility] Doctor Unassigned, No [address] [facility] [place] [address] Allergies No Known Allergiesdocumented as of this encounter (statuses as of 04/21/2019) Medications Medication Sig Dispensed Refills Start Date End Date Status montelukast 10 mg. 0 09/28/2015 Active (SINGULAIR) 10 mg tablet LANTUS SOLOSTAR 100 0 10/05/2015 Active unit/mL (3 mL) injection BREO ELLIPTA 100-25 INHALE 1 PUFF 1 03/13/2016 Active mcg/dose DsDv DAILY albuterol (ACCUNEB) USE 1 VIAL IN 2 01/20/2016 Active 1.25 mg/3 mL nebulizer NEBULIZER EVERY 8 solution HOURS NEEDED FOR COUGH AND SHORTNESS OF BREATH ONETOUCH ULTRA TEST USE TO TEST 2 1 03/30/2016 Active strip TIMES DAILY ONETOUCH ULTRAMINI Kit Take 10 mg by 0 03/30/2016 Active mouth. ONETOUCH DELICA UAE TO TEST 2 0 03/30/2016 Active LANCETS 30 gauge Misc TIMES DAILY PROAIR HFA 90 INHALE 2 PUFFS 4 6 12/12/2016 Active mcg/actuation inhaler TIMES A DAY NEEDED FOR SHORTNESS OF BREATHE docusate (COLACE) 100 Take 1 capsule by 60 capsule 1 01/02/2017 Active mg capsule mouth 2 (two) times daily. gabapentin 300 mg Take 300 mg by 0 Active tablet mouth 2 (two) times daily. SERTraline 50 mg Take 50 mg by 0 Active tablet mouth daily. potassium chloride 10 Take 10 mEq by 0 Active mEq CR capsule mouth 2 (two) times daily. benzonatate 100 mg Take 100 mg by 0 Active capsule mouth at bedtime. esomeprazole 40 mg Take 40 mg by 0 Active capsule mouth daily with breakfast. glipiZIDE 10 mg tablet Take 2 tablets by 0 06/29/2017 Active mouth 2 (two) times daily. simvastatin 40 mg TAKE 1 TABLET BY 30 tablet 6 06/29/2017 Active tablet MOUTH AT BEDTIME insulin lispro, human, inject 10 Units 0 08/03/2017 Active (HUMALOG) 100 unit/mL under the skin. injection levothyroxine 75 mcg Take 1 tablet by 30 tablet 0 08/03/2017 Active tablet mouth every morning. MAGNESIUM OXIDE 400 mg TAKE 1 TABLET BY 60 tablet 0 10/01/2017 Active tabletIndications: MOUTH TWICE A DAY Hypertension, unspecified type XULTOPHY 100/3.6 100 0 04/09/2018 Active unit-3.6 mg /mL (3 mL) InPn clotrimazole 1 % Apply topically 60 g 0 04/11/2018 Active topical cream to affected area BID until symptoms resolve not to be used longer than two weeks metoprolol succinate Take 0.5 tablets 30 tablet 6 08/14/2018 Active XL 25 mg 24 hr tablet by mouth daily. losartan 25 mg tablet Take 0.5 tablets 30 tablet 6 08/19/2018 Active by mouth daily. FUROSEMIDE 80 mg TAKE 1 TABLET BY 60 tablet 0 04/09/2019 Active tablet MOUTH EVERY MORNING AND EVENING. documented as of this encounter (statuses as of 04/21/2019) Active Problems Problem Noted Date Positive H. pylori test 05/30/2017 Overview: Added automatically from request for surgery [id number] Acute cystitis without hematuria 01/05/2017 Chronic idiopathic constipation 01/02/2017 Personal history of radiation therapy 12/29/2016 Declining functional status 12/28/2016 Morbid obesity with body mass index of 40.0-49.9 08/03/2016 Morbid obesity with body mass index of 50 or higher 08/03/2016 Fungal infection 03/29/2015 Asthma Depression Diabetes GERD (gastroesophageal reflux disease) Hypertension Thyroid disease documented as of this encounter (statuses as of 04/21/2019) Immunizations Name Administration Dates Next Due Pneumococcal Polysaccharide, PPSV23 (PNEUMOVAX) 05/26/2017 documented as of this encounter Social History Tobacco Use Types Packs/Day Years Used Date Former Smoker Cigarettes 1 35 Quit: 10/30/2016 Smokeless Tobacco: Never Used Comments: denies for most of 2016, none since 03/2017 Alcohol Use Drinks/Week oz/Week Comments Yes 0 Standard drinks or equivalent 0.0 Social Drinker Sex Assigned at Date Recorded Not on [...] of this encounter Implants Implanted Type Area Residential Mental Health Worker Device Shelf Model / Serial Identifier Expiration / Lot Date Lens LENS Left: Eye Javi 08/23/2020 [id number] / Implanted: Qty: 1 on 07/06/2016 by Johnathon Kent MD at [facility] [id number] / [id number] Acrysof Iq LENS Javi 04/23/2021 [id number] / Implanted: Qty: 1 on 08/03/2016 by Johnathon Kent MD at [facility] [id number] / [id number] documented as of this encounter Procedures Procedure Name Priority Date/Time Associated Diagnosis Comments MEDICATION HISTORY Routine 04/21/2019 12:01 AM RECONCILIATION FORM CDT documented in this encounter Results Not on filedocumented in this encounter Insurance Payer Benefit Plan / Subscriber ID Effective Dates Phone Address Type Group [facility] xxxxxxxxx 2015-[facility] Medicaid COMM PLAN - PLUS t MANAGED MEDICAID documented as of this encounter
[2019-05-07] MEDS ORDERED: CEFTRIAXONE/SWI 1gm 1 GM/10 ML SYR ONE (00:08)
[2019-05-07] MEDS ORDERED: ACETAMINOPHEN 325 MG TABLET ONE (00:08)
[2019-05-07] MEDS ORDERED: NA CHLORIDE 0.9% 1,000 ML ONE ×3 (00:08→03:13)
[2019-05-07 00:31] LABS: Absolute Lymphocytes (CBC) 0.7 K/uL (0.7-4.9); Basophils % 0.4 % (0-1.3); Hematocrit 34.5 % (36.0-45.0); Lymphocytes % 4.4 % (15.3-44.8); RBC Red Blood Cell Count 4.56 M/uL (3.86-4.86)
[2019-05-07 00:33] LABS: Protime INR 2.29
[2019-05-07 00:49] LABS: ALT/SGPT 19 U/L (12-78); AST/SGOT 11 U/L (15-37); Albumin 3.5 g/dL (3.4-5.0); Alkaline Phosphatase 122 U/L (45-117); BUN Blood Urea Nitrogen 38 mg/dL (7-18); Bicarbonate 25 mmol/L (21-32); Bilirubin Direct 0.1 mg/dL (0-0.2); Bilirubin Total 0.4 mg/dL (0.2-1.0); Creatine Phosphokinase 33 U/L (26-192); Glucose Level 133 mg/dL (74-106); Lipase 461 U/L (73-393); Potassium 4.9 mmol/L (3.5-5.1); Protein, Total 8.4 g/dL (6.4-8.2); Sodium Level 135 mmol/L (136-145); Troponin (Emerg Dept Use Only) < 0.02 ng/mL (0.0-0.045)
[2019-05-07 00:55] LABS: Urine Blood 3+ (NEG); Urine Glucose 2+ (NEG); Urine Protein 2+ (NEG); Urine Specific Gravity 1.015 (1.005-1.030); Urine pH 5.5 (5.0-7.0)
[2019-05-07 01:09] LABS: Urine Bacteria >50 /HPF (<20); Urine Culture Reflex Order REFLEXED; Urine RBC 20-50 /HPF (NONE SEEN)
[2019-05-07 02:14] LABS: Blood Morphology Comment NOT SEEN (NOT SEEN); Platelet Estimate ADEQ
--- NOTE | 2019-05-07 02:19 | ER ---
Nurse's Notes [facility] Name: Tessie Michaud Age: 59 yrs Sex: Female : 1960 Arrival Date: 05/06/2019 Time: 23:36 Bed 6 Private MD: Diagnosis: Other Gram-negative sepsis;Urinary tract infection, site not specified Presentation: 05/06 23:58 Presenting complaint: Patient states: Shakiness, fever, nausea and vomiting for an ao hour. Patient report being diagnosed with UTI a week ago but was never treated. Transition of care: patient was not received from another setting of care. Onset of symptoms was May 06, 2019 at 23:00. Risk Assessment: Do you want to hurt yourself or someone else? Patient reports no desire to harm self or others. Initial Sepsis Screen: Does the patient meet any 2 criteria? RR > 20 per min. Temp <36.0*C (96.8*F)) or > 38.3*C (100.9*F). HR > 90 bpm. Yes Does the patient have a suspected source of infection? Yes: Dysuria/Frequency/Urgency/UTI. Care prior to arrival: None. 23:58 Method Of Arrival: Ambulatory ao 23:58 Acuity: KATIA 2 ao Triage Assessment: 05/07 00:05 General: Appears in no apparent distress. uncomfortable, Behavior is calm, cooperative, ao appropriate for age. Pain: Denies pain. EENT: No signs and/or symptoms were reported regarding the EENT system. Neuro: Level of Consciousness is awake, alert, obeys commands, Oriented to person, place, time, situation, Moves all extremities. Full function Speech is normal. Cardiovascular: Capillary refill < 3 seconds Patient's skin is warm and dry. Respiratory: Airway is patent Respiratory effort is even, unlabored, Respiratory pattern is regular, symmetrical. GI: Reports diarrhea, nausea. : Reports burning with urination, urgency, urinary frequency. Derm: Skin is dry, Skin is pink, warm \T\ dry. normal, Skin temperature is hot. Musculoskeletal: Circulation, motion, and sensation intact. Range of motion: intact in all extremities. Historical: - Allergies: 00:03 No Known Allergies; ao - Home Meds: 00:03 losartan Oral [Active]; Furosemide Oral [Active]; Glimepiride Oral [Active]; Levothroid ao Oral [Active]; mometasone inhalation [Active]; montelukast Oral [Active]; potassium chloride (bulk) miscellaneous [Active]; benzonatate Oral [Active]; gabapentin Oral [Active]; Albuterol Inhl [Active]; esomeprazole magnesium Oral [Active]; insulin regular human inhalation [Active]; Naproxen Oral [Active]; pioglitazone Oral [Active]; Simvastatin Oral [Active]; - PMHx: 00:03 CHF; Diabetes - NIDDM; Home O2 at 2L NC as needed; Hyperlipidemia; ao - PSHx: 00:03 CABG; Heart stents; ao - Immunization history:: Adult Immunizations up to date. - Social history:: Smoking status: Patient/guardian denies using tobacco, Patient/guardian denies using alcohol, street drugs, IV drugs. - Ebola Screening: : Patient negative for fever greater than or equal to 101.5 degrees Fahrenheit, and additional compatible Ebola Virus Disease symptoms Patient denies exposure to infectious person Patient denies travel to an Ebola-affected area in the 21 days before illness onset. Screenin:04 Abuse screen: Denies threats or abuse. Denies injuries from another. Nutritional ao screening: No deficits noted. Tuberculosis screening: No symptoms or risk factors identified. Fall Risk None identified. Assessment: 00:07 General: See triage assessment. GI: Abdomen is round obese. ao 01:11 Reassessment: Patient appears in no apparent distress at this time. No changes from ao previously documented assessment. Patient and/or family updated on plan of care and expected duration. Pain level reassessed. 02:20 Reassessment: Patient appears in no apparent distress at this time. Patient and/or rr5 family updated on plan of care and expected duration. Pain level reassessed. Patient is alert, oriented x 3, equal unlabored respirations, skin warm/dry/pink. for admission. ED provider verbal order to repeat the lactate now. 03:27 Reassessment: Report called to TODD Joseph. Patient to be taking to her room. ao Vital Signs: 00:03 BP 104 / 49; Pulse 108; Resp 22; Temp 103.2(O); Pulse Ox 92% on R/A; Weight 122.47 kg ao (R); Height 5 ft. 2 in. (157.48 cm) (R); Pain 6/10; 01:05 BP 92 / 29; Pulse 91; Resp 25; Pulse Ox 96% on R/A; rr5 01:30 Temp 99.8; rr5 02:15 BP 104 / 60; Pulse 99; Resp 21; Temp 101.1; Pulse Ox 94% on R/A; rr5 03:21 BP 100 / 54; Pulse 83; Resp 16; Temp 99.2(O); Pulse Ox 96% on R/A; ao 00:03 Body Mass Index 49.38 (122.47 kg, 157.48 cm) ao ED Course: 05/06 23:36 Patient arrived in ED. ds1 23:55 Timothy Mix MD is Attending Physician. gs 23:58 Anshul Martinez RN is Primary Nurse. ao 05/07 00:01 Triage completed. ao 00:04 Arm band placed on right wrist. Patient placed in an exam room, on a stretcher, in a ao wheelchair, on target protection specialist, on pulse oximetry, Patient notified of wait time. 00:07 Patient has correct armband on for positive identification. system development manager on. Pulse ao ox on. NIBP on. 00:25 Inserted saline lock: 20 gauge in right forearm, using aseptic technique. Blood oe collected. 00:46 X-ray completed. Portable x-ray completed in exam room. Patient tolerated procedure kw well. 00:54 Chest Single View XRAY In Process Unspecified. EDMS 02:16 Demarco Madison MD is Hospitalizing Provider. gs 02:27 CT completed. Patient tolerated procedure well. Patient moved to CT via stretcher. Patient moved back from CT. 02:32 CT Chest Abdomen Pelvis W/O Contrast In Process Unspecified. EDMS 03:25 No provider procedures requiring assistance completed. Patient admitted, IV remains in ao place. Administered Medications: 00:15 Drug: NS 0.9% 1000 ml Route: IV; Rate: 1 bolus; Site: right forearm; rr5 01:56 Follow up: Response: No adverse reaction; IV Status: Completed infusion; IV Intake: rr5 1000ml 00:15 Drug: NS 0.9% 1000 ml Route: IV; Rate: 1 bolus; Site: right forearm; rr5 01:56 Follow up: Response: No adverse reaction; IV Status: Completed infusion; IV Intake: rr5 1000ml 00:24 Drug: Tylenol 650 mg Route: PO; rr5 01:30 Follow up: Response: No adverse reaction; Temperature is decreased rr5 00:42 Drug: Rocephin - (cefTRIAXone) 1 grams Route: IVPB; Infused Over: 30 mins; Site: left ao antecubital; 01:15 Follow up: Response: No adverse reaction; IV Status: Completed infusion rr5 02:31 Drug: Ibuprofen 600 mg {Note: T 101.1 F.} Route: PO; rr5 03:25 Follow up: Response: No adverse reaction ao 03:17 Drug: NS 0.9% 1000 ml Route: IV; Rate: 125 ml/hr; Site: right forearm; rr5 03:25 Follow up: IV Status: Infusion continued upon admission ao Point of Care Testing: Blood Glucose: 00:22 Blood Glucose: 155 mg/dL; ao Ranges: Intake: 01:56 IV: 1000ml; Total: 1000ml. rr5 01:56 IV: 1000ml; Total: 2000ml. rr5 Outcome: 02:17 Decision to Hospitalize by Provider. 03:25 Admitted to Tele accompanied by tech, room 426, with oxygen, with chart, Report called ao to TODD Joseph 03:25 Condition: stable 03:25 Instructed on the need for admit. 03:54 Patient left the ED. ao Signatures: Dispatcher [employer] Arcenio Buenrostro Demi ds1 Sravani Frances Alex, RN RN ao Nando Adhikari Gregory, MD MD Rito Jarvis, RN RN rr5 Corrections: (The following items were deleted from the chart) 03:21 08/13 23:58 Presenting complaint: Patient states: Shakiness, fever, nausea and vomiting ao for an hour. Patient report being diagnosed with BINDU a week ago but was never treated. ao
--- NOTE | 2019-05-07 02:20 | EDPHYS ---
Physician Documentation [facility] Name: Tessie Michaud Age: 59 yrs Sex: Female : 1960 Arrival Date: 05/06/2019 Time: 23:36 Bed 6 Private MD: ED Physician Timothy Mix HPI: 05/07 02:17 This 59 yrs old Female presents to ER via Ambulatory with complaints of Fever, gs Nausea. 02:17 Onset: The symptoms/episode began/occurred today. Modifying factors: there are no gs obvious modifying factors. Associated signs and symptoms: Pertinent positives: dysuria. Severity of symptoms: At their worst the symptoms were severe in the emergency department the symptoms are unchanged. The patient has not experienced similar symptoms in the past. The patient has not recently seen a physician. Historical: - Allergies: 00:03 No Known Allergies; ao - Home Meds: 00:03 losartan Oral [Active]; Furosemide Oral [Active]; Glimepiride Oral [Active]; Levothroid ao Oral [Active]; mometasone inhalation [Active]; montelukast Oral [Active]; potassium chloride (bulk) miscellaneous [Active]; benzonatate Oral [Active]; gabapentin Oral [Active]; Albuterol Inhl [Active]; esomeprazole magnesium Oral [Active]; insulin regular human inhalation [Active]; Naproxen Oral [Active]; pioglitazone Oral [Active]; Simvastatin Oral [Active]; - PMHx: 00:03 CHF; Diabetes - NIDDM; Home O2 at 2L NC as needed; Hyperlipidemia; ao - PSHx: 00:03 CABG; Heart stents; ao - Immunization history:: Adult Immunizations up to date. - Social history:: Smoking status: Patient/guardian denies using tobacco, Patient/guardian denies using alcohol, street drugs, IV drugs. - Ebola Screening: : Patient negative for fever greater than or equal to 101.5 degrees Fahrenheit, and additional compatible Ebola Virus Disease symptoms Patient denies exposure to infectious person Patient denies travel to an Ebola-affected area in the 21 days before illness onset. ROS: 02:17 All other systems are negative. gs Exam: 02:17 Head/Face: Normocephalic, atraumatic. Eyes: Pupils equal round and reactive to light, gs extra-ocular motions intact. Lids and lashes normal. Conjunctiva and sclera are non-icteric and not injected. Cornea within normal limits. Periorbital areas with no swelling, redness, or edema. ENT: Nares patent. No nasal discharge, no septal abnormalities noted. Tympanic membranes are normal and external auditory canals are clear. Oropharynx with no redness, swelling, or masses, exudates, or evidence of obstruction, uvula midline. Mucous membranes moist. Neck: Trachea midline, no thyromegaly or masses palpated, and no cervical lymphadenopathy. Supple, full range of motion without nuchal rigidity, or vertebral point tenderness. No Meningismus. Chest/axilla: Normal chest wall appearance and motion. Nontender with no deformity. No lesions are appreciated. 02:17 Constitutional: The patient appears alert, awake, in obvious distress, severely distressed. 02:17 Cardiovascular: Rate: 02:27 ECG was reviewed by the Attending Physician. gs Vital Signs: 00:03 BP 104 / 49; Pulse 108; Resp 22; Temp 103.2(O); Pulse Ox 92% on R/A; Weight 122.47 kg ao (R); Height 5 ft. 2 in. (157.48 cm) (R); Pain 6/10; 01:05 BP 92 / 29; Pulse 91; Resp 25; Pulse Ox 96% on R/A; rr5 01:30 Temp 99.8; rr5 02:15 BP 104 / 60; Pulse 99; Resp 21; Temp 101.1; Pulse Ox 94% on R/A; rr5 03:21 BP 100 / 54; Pulse 83; Resp 16; Temp 99.2(O); Pulse Ox 96% on R/A; ao 00:03 Body Mass Index 49.38 (122.47 kg, 157.48 cm) ao MDM: 00:07 Patient medically screened. gs 02:27 Differential diagnosis: viral Infection, bacterial infection, pneumonia UTI, sepsis. Data reviewed: vital signs, nurses notes, lab test result(s), EKG, radiologic studies. Counseling: I had a detailed discussion with the patient and/or guardian regarding: the historical points, exam findings, and any diagnostic results supporting the discharge/admit diagnosis, the need for further work-up and treatment in the hospital. Response to treatment: the patient's symptoms have mildly improved after treatment, and as a result, I will discharge patient. 03:11 ED course: 30/kg fluids not given as lactate 1.1 at 2.5 hours. 05/07 00:00 Order name: Basic Metabolic Panel; Complete Time: 01: 05/07 00:00 Order name: Blood Culture Adult (2) 05/07 00:00 Order name: CBC with Diff; Complete Time: 02:26 05/07 00:00 Order name: CPK; Complete Time: : 05/07 00:00 Order name: Lactate; Complete Time: : 05/07 00:00 Order name: LFT's; Complete Time: : 05/07 00:00 Order name: Lipase; Complete Time: 05/07 00:00 Order name: Procalcitonin; Complete Time: : 05/07 00:00 Order name: Protime (+inr); Complete Time: : 05/07 00:00 Order name: Troponin (emerg Dept Use Only); Complete Time: : 05/07 00:00 Order name: Urine Microscopic Only; Complete Time: 01: 05/07 00:47 Order name: Urine Dipstick--Ancillary (enter results); Complete Time: :10 ag4 05/07 00:54 Order name: Manual Differential; Complete Time: 02:26 EDNC 05/07 01:11 Order name: Urine Culture [facility] 05/07 00:00 Order name: Chest Single View XRAY 05/07 01:25 Order name: CT Chest Abdomen Pelvis W/O Contrast 05/07 02:21 Order name: Lactate; Complete Time: 03:11 rr5 05/07 02:28 Order name: CONS Pharmacy Consult EDNC 05/07 02:29 Order name: Lactate EDNC 05/07 02:29 Order name: CBC with Automated Diff EDNC 05/07 02:29 Order name: Comprehensive Metabolic Panel EDNC 05/07 02:29 Order name: Procalcitonin EDNC 05/07 02:29 Order name: Protime (+INR) EDNC 05/07 02:29 Order name: PTT, Activated Partial Thromb EDNC 05/07 00:00 Order name: Accucheck; Complete Time: 00:42 05/07 00:00 Order name: Cardiac monitoring; Complete Time: 00: 05/07 00:00 Order name: EKG - Nurse/Tech; Complete Time: : 05/07 00:00 Order name: IV Saline Lock - Large Bore; Complete Time: 00: 05/07 00:00 Order name: Labs collected and sent; Complete Time: 00: 05/07 00:00 Order name: O2 Per Protocol; Complete Time: : 05/07 00:00 Order name: O2 Sat Monitoring; Complete Time: 00: 05/07 00:00 Order name: Urine Dipstick-Ancillary (obtain specimen); Complete Time: 00: 05/07 02:29 Order name: Regular EDMS EC:27 Rate is 102 beats/min. Rhythm is regular. IN interval is normal. QRS interval is gs normal. QT interval is normal. T waves are Normal. No ST changes noted. Clinical impression: Sinus tachycardia. Interpreted by me. Administered Medications: 00:15 Drug: NS 0.9% 1000 ml Route: IV; Rate: 1 bolus; Site: right forearm; rr5 01:56 Follow up: Response: No adverse reaction; IV Status: Completed infusion; IV Intake: rr5 1000ml 00:15 Drug: NS 0.9% 1000 ml Route: IV; Rate: 1 bolus; Site: right forearm; rr5 01:56 Follow up: Response: No adverse reaction; IV Status: Completed infusion; IV Intake: rr5 1000ml 00:24 Drug: Tylenol 650 mg Route: PO; rr5 01:30 Follow up: Response: No adverse reaction; Temperature is decreased rr5 00:42 Drug: Rocephin - (cefTRIAXone) 1 grams Route: IVPB; Infused Over: 30 mins; Site: left ao antecubital; 01:15 Follow up: Response: No adverse reaction; IV Status: Completed infusion rr5 02:31 Drug: Ibuprofen 600 mg {Note: T 101.1 F.} Route: PO; rr5 03:25 Follow up: Response: No adverse reaction ao 03:17 Drug: NS 0.9% 1000 ml Route: IV; Rate: 125 ml/hr; Site: right forearm; rr5 03:25 Follow up: IV Status: Infusion continued upon admission ao Point of Care Testing: Blood Glucose: 00:22 Blood Glucose: 155 mg/dL; ao Ranges: Critical Glucose Levels:Adult <50 mg/dl or >400 mg/dl <40 mg/dl or >180 mg/dl Disposition: 05/07/19 02:17 Hospitalization ordered by Demarco Madison for Inpatient Admission. Preliminary diagnosis are Other Gram-negative sepsis, Urinary tract infection, site not specified. - Bed requested for Telemetry/MedSurg (Inpatient). - Status is Inpatient Admission. ao - Condition is Stable. - Problem is new. - Symptoms have improved. UTI on Admission? No Critical care time excluding procedures: :27 Critical care time: Bedside Care: 10 minutes, Consultation: 10 minutes, Family gs Intervention: 10 minutes. Total time: 30 minutes Signatures: Dispatcher [employer] Funmi Plaza RN RN Anshul Schulz RN RN ao Starr, Gregory, MD MD gs Roque, Raymond, RN RN rr5 Corrections: (The following items were deleted from the chart) 03:05 02:17 Hospitalization Ordered by Demarco Madison MD for Inpatient Admission. Preliminary cg diagnosis is Other Gram-negative sepsis; Urinary tract infection, site not specified. Bed requested for Telemetry/MedSurg (Inpatient). Status is Inpatient Admission. Condition is Stable. Problem is new. Symptoms have improved. UTI on Admission? No. gs 03:54 03:05 05/07/2019 02:17 Hospitalization Ordered by Demarco Madison MD for Inpatient ao Admission. Preliminary diagnosis is Other Gram-negative sepsis; Urinary tract infection, site not specified. Bed requested for Telemetry/MedSurg (Inpatient). Status is Inpatient Admission. Condition is Stable. Problem is new. Symptoms have improved. UTI on Admission? No. cg
[2019-05-07] MEDS ORDERED: IBUPROFEN 400 MG TAB ONE (02:28)
[2019-05-07] MEDS ORDERED: IBUPROFEN 200 MG TAB PO ONE (02:28)
[2019-05-07] MEDS ORDERED: NA CHLORIDE 0.9% 1,000 ML IV SCH (03:00)
[2019-05-07 06:51] LABS: Basophils % 0.4 % (0-1.3); Lymphocytes % 7.4 % (15.3-44.8); MPV 7.9 fL (7.6-11.3); RBC Red Blood Cell Count 3.94 M/uL (3.86-4.86)
[2019-05-07 06:53] LABS: Protime INR 2.1
[2019-05-07 07:10] LABS: Bilirubin Total 0.4 mg/dL (0.2-1.0); Potassium 4.7 mmol/L (3.5-5.1); Protein, Total 7.2 g/dL (6.4-8.2)
--- NOTE | 2019-05-07 08:22 | RAD REPORT ---
EXAM DESCRIPTION: RAD - Chest Single View - 05/07/2019 12:49 am CLINICAL HISTORY: FEVER Chest pain. COMPARISON: Chest Single View dated 07/07/2018; Chest Single View dated 10/08/2017; Chest Single View dated 06/03/2017; Chest Pa And Lat (2 Views) dated 02/15/2017 FINDINGS: Portable technique limits examination quality. Mild interstitial pulmonary edema is seen. The heart is moderately enlarged with sternotomy wires pre sent. No displaced fractures. IMPRESSION: Mild CHF.
[2019-05-07] MEDS: CEFTRIAXONE/SWI 1gm 1 GM/10 ML SYR IV SCH ×2 (09:00→22:06)
[2019-05-07] MEDS ORDERED: FUROSEMIDE 40 MG TABLET PO PRN (09:10)
[2019-05-07] MEDS ORDERED: ALBUTEROL SULFATE IH PRN (09:10)
[2019-05-07] MEDS ORDERED: HOME MED 1 EA UNK (Albuterol Sulfate [Proair Hfa] 2 PUFF) IH PRN (09:10)
[2019-05-07] MEDS ORDERED: ALBUTEROL 2.5 MG/3 ML NEB SOL IH PRN ×2 (09:10→19:00)
[2019-05-07] MEDS: NA CHLORIDE 0.9% 1,000 ML IV SCH ×2 (09:13→15:46)
--- NOTE | 2019-05-07 09:21 | P.HP ---
Certification for Inpatient Patient admitted to: Inpatient With expected LOS: >2 Midnights Patient will require the following post-hospital care: None Practitioner: I am a practitioner with admitting privileges, knowledge of patient current condition, hospital course, and medical plan of care. Services: Services provided to patient in accordance with Admission requirements found in Title 42 Section 412.3 of the Code of Federal Regulations Patient History Date of Service: 05/07/19 Reason for admission: UTI with altered mental status History of Present Illness: Patient is a 59-year-old female that presented to the hospital with altered mental status. Patient has a history of aortic valve repair along with uterine cancer. Patient has a history of hypertension and diabetes along with asthma and obstructive sleep apnea. Patient has not been feeling well at home. The patient was having fevers along with nausea. Patient has also been having some dysuria. Patient was found have a urinary tract infection. She was started on IV fluids and IV antibiotics. She states she has been lethargic and not feeling well. She has been sleeping more frequently. Patient has multiple cardiac issues including congestive heart failure. She takes diuretics. Patient will need to be hydrated gently. We will monitor patient in the hospital closely. Allergies No Known Allergies Allergy (Verified 05/07/19 04:19) Home Medications: Gabapentin [Neurontin*] 1 cap PO DAILY 06/04/17 Albuterol Sulfate 1 puff IH Q6H PRN #30 06/05/17 Esomeprazole Mag Trihydrate [Nexium] 1 pill PO DAILY #30 06/05/17 Levothyroxine [Synthroid*] 75 mcg PO DAILY #30 06/05/17 Potassium Chloride 1 tab PO BID #60 06/05/17 Simvastatin 1 pill PO BEDTIME #30 06/05/17 Losartan Potassium 1 tab PO DAILY 10/09/17 Albuterol Sulfate [Albuterol Sulfate 0.083% Neb Soln] 3 ml IH DAILY PRN Albuterol Sulfate [Proair Hfa] 2 puff IH QID PRN 05/07/19 Docusate Sodium 1 tab PO BID 05/07/19 Empagliflozin [Jardiance] 1 tab PO DAILY 05/07/19 Fluticasone/Vilanterol [Breo Ellipta 100-25 Mcg INH] 1 puff IH DAILY 05/07/19 Furosemide 80 mg PO DAILY PRN 05/07/19 Insulin Regular, Human [Novolin R] 10 units SQ BEDTIME 05/07/19 Insulin Regular, Human [Novolin R] 10 units SQ DAILY 05/07/19 Montelukast Sodium [Singulair] 1 tab PO BEDTIME 05/07/19 Qnasl 80 Mcg/Inh 2 spray IH DAILY 05/07/19 Sertraline [Zoloft*] 1 tab PO DAILY 05/07/19 Spironolactone 1 tab PO BID 05/07/19 Warfarin Sodium [Coumadin] 1 tab PO BEDTIME 05/07/19 Xtrophy Insulin 50 units SQ DAILY 05/07/19 - Past Medical/Surgical History Has patient received pneumonia vaccine in the past: Yes Diabetic: Yes -: Hypothyroidism -: Diabetes IDDM -: Asthma -: Hypertension -: Mild sleep apnea noncompliant -: UTERINE CA (BARIUM IMPLANTS) -: Obstructive sleep apnea noncompliant CPAP was returned -: CHF -: Hyperlipidemia -: BILATERAL CATARACT SX -: HEMORRHOIDECTOMY -: heart valve replacement -: CABG - Family History Mother Medical History: Diabetes, Other (see notes) Notes: CHF Father Medical History: Diabetes, Cancer Notes: Prostate Cancer Brother Medical History: Diabetes Sister Medical History: Diabetes Notes: Third and sixth nerve palsy - Social History Smoking Status: Former smoker Alcohol use: Yes CD- Drugs: No Caffeine use: No Place of Residence: Home Review of Systems 10-point ROS is otherwise unremarkable Physical Examination - Vital Signs Temperature: 101.8 F Blood Pressure: 100/54 Pulse: 71 Respirations: 20 Pulse Ox (%): 97 - Physical Exam General: Alert, In no apparent distress, Oriented x3 HEENT: Atraumatic, PERRLA, Mucous membr. moist/pink, EOMI, Sclerae nonicteric Neck: Supple, 2+ carotid pulse no bruit, No LAD, Without JVD or thyroid abnormality Respiratory: Clear to auscultation bilaterally, Normal air movement Cardiovascular: Regular rate/rhythm, Normal S1 S2, Systolic murmur Gastrointestinal: Normal bowel sounds, Soft and benign, Non-distended, No tenderness Musculoskeletal: No tenderness Integumentary: No rashes Neurological: Normal gait, Normal speech, Normal strength at 5/5 x4 extr, Normal tone, Sensation intact, Cranial nerves 3-12 intact, Normal affect Lymphatics: No axilla or inguinal lymphadenopathy - Studies Laboratory Data (last 24 hrs) 05/07/19 00:15: PT 26.2 H, INR 2.29 05/07/19 00:15: WBC 16.6 H, Hgb 11.0 L, Hct 34.5 L, Plt Count 305 05/07/19 00:15: Sodium 135 L, Potassium 4.9, BUN 38 H, Creatinine 1.33 H, Glucose 133 H, Total Bilirubin 0.4, AST 11 L, ALT 19, Alkaline Phosphatase 122 H , Lipase 461 H Microbiology Data (last 24 hrs): 05/07/19 00:32 Blood - Blood Anaerobic Blood Culture - Final Assessment & Plan - Problems (Diagnosis) (1) UTI (urinary tract infection) Onset Date: 01/08/17 Current Visit: No Status: Acute Qualifiers: Urinary tract infection type: acute cystitis Hematuria presence: without hematuria Qualified Code(s): N30.00 - Acute cystitis without hematuria (2) Altered mental status Current Visit: Yes Status: Acute (3) CHF (congestive heart failure) Onset Date: 01/08/17 Current Visit: No Status: Chronic Qualifiers: Heart failure type: combined systolic and diastolic (4) COPD with acute exacerbation Onset Date: 10/09/17 Current Visit: No Status: Chronic (5) Diabetes type 2, uncontrolled Onset Date: 01/08/17 Current Visit: No Status: Chronic (6) GERD (gastroesophageal reflux disease) Onset Date: 01/08/17 Current Visit: No Status: Acute (7) Hyperlipidemia Onset Date: 01/08/17 Current Visit: No Status: Acute (8) Hypertension Onset Date: 01/08/17 Current Visit: No Status: Acute (9) KIERSTEN (obstructive sleep apnea) Onset Date: 06/04/17 Current Visit: No Status: Acute - Plan Plan: 1. Continue with IV antibiotics 2. Gentle hydration 3. Monitor cardiac status closely 4. Strict blood pressure and blood sugar control 5. Monitor her volume status 6. Monitor hemodynamics closely 7. GI and DVT prophylaxis Discharge Plan: Home Plan to discharge in: Greater than 2 days - Advance Directives Does patient have a Living Will: No Does patient have a Durable POA for Healthcare: No - Code Status/Comfort Care Code Status Assessed: Yes Code Status: Full Code Critical Care: No Time Spent Managing PTS Care (In Minutes): 40
--- NOTE | 2019-05-07 09:48 | EKG ---
Test Date: 2019-05-07 Test Time: 00:02:33 Cable Ferryboat Operator: LEONA MEASUREMENT RESULTS: Intervals: Rate: 102 DE: 158 QRSD: 86 QT: 328 QTc: 427 [place]: P: 64 DE: 158 QRS: 90 T: 56 INTERPRETIVE STATEMENTS: Sinus tachycardia Rightward axis Borderline ECG Compared to ECG 07/07/2018 10:40:17 Right-axis deviation now present Sinus rhythm no longer present Electronically Signed On 05-07-19 09:47:18 CDT by Kaleb Bates
--- NOTE | 2019-05-07 10:10 | RAD REPORT ---
EXAM DESCRIPTION: CT Chest Without Intravenous Contrast CT Abdomen and Pelvis Without Intravenous Contrast CLINICAL HISTORY: The patient is 59 years old and is Female; FEVER TECHNIQUE: Axial computed tomography images of the chest, abdomen and pelvis without intravenous con trast. Sagittal and coronal reformatted images were created and reviewed. This CT exam was perfor med using one or more of the following dose reduction techniques: automated exposure control, adjus tment of the mA and/or kV according to patient size, and/or use of iterative reconstruction technique . COMPARISON: CT of the chest, abdomen and pelvis October 08, 2018. FINDINGS: CHEST: LUNGS: Areas of atelectasis/scarring within the right upper and bilateral lower lobes is noted. Calcified granuloma within the right lower lobe is present. PLEURAL SPACE: Unremarkable. No significant effusion. No pneumothorax. HEART: The heart is enlarged. Calcification of the mitral annulus is present. A prosthetic m itral valve is present. ABDOMEN: LIVER: Homogeneous without focal mass. GALLBLADDER AND BILE DUCTS: Peripheral calcification of the fundus of the gallbladder is present , unchanged from prior exam. PANCREAS: The pancreas is atrophic. No ductal dilation. SPLEEN: Unremarkable. ADRENALS: Unremarkable. No mass. KIDNEYS AND URETERS: No obstructing stones. No hydronephrosis. STOMACH AND BOWEL: The stomach is minimally distended with food contents. The small bowel is nor mal in caliber. Stool is present throughout the colon. There is no mucosal thickening or evidence of bowel obstruction. PELVIS: APPENDIX: The appendix is normal in caliber without surrounding inflammation. BLADDER: A few foci of air are noted within the urinary bladder which may be secondary to recent instrumentation. Suggestion of minimal bladder wall thickening is noted. No stones. REPRODUCTIVE: Unremarkable as visualized. CHEST, ABDOMEN and PELVIS: INTRAPERITONEAL SPACE: Unremarkable. No significant fluid collection. No free air. BONES/JOINTS: Median sternotomy wires are present. Degenerative change of the spine is present . SOFT TISSUES: The soft tissues are normal. VASCULATURE: Extensive atherosclerosis of the vasculature is noted. No aortic aneurysm. LYMPH NODES: Unremarkable. No enlarged lymph nodes. IMPRESSION: 1. Foci of air within the urinary bladder which may be secondary to recent instrumenta tion. Alternatively, mild cystitis is within the differential. 2. Findings suggest a porcelain gallbladder, unchanged from prior exam. Electronically signed by: Gissell Wells MD 05/07/2019 2:58 AM CDT Due to temporary technical issues with the PACS/Fluency reporting system, reports are being signed by the in house radiologist as a courtesy to ensure prompt reporting. The interpreting radiologist is f ully responsible for the content of the report.
[2019-05-07] MEDS ORDERED: D50W 25 GM/50 ML SYRINGE IV PRN (11:20)
[2019-05-07] MEDS ORDERED: GLUCAGON 1 MG/VIAL IM PRN (11:20)
[2019-05-07] MEDS: INSULIN -REGULAR HUMAN 50 UNIT/0.5 ML ML SQ SCH ×4 (11:30→22:05)
[2019-05-07] MEDS: ACETAMINOPHEN 500 MG TAB PO PRN ×2 (13:33→17:00)
[2019-05-07] MEDS: ONDANSETRON 4 MG/2 ML VIAL IV PRN (13:58)
[2019-05-07] MEDS: MORPHINE 2 MG/ML SYR IV PRN ×2 (14:06→22:06)
[2019-05-07] MEDS ORDERED: NA CHLORIDE 0.9% 250 ML IV ONE (16:47)
[2019-05-07] MEDS: DOCUSATE NA 100 MG CAP PO SCH (22:06)
[2019-05-07] MEDS: WARFARIN SODIUM 5 MG TAB PO SCH (22:06)
[2019-05-07] MEDS: ATORVASTATIN 20 MG TAB PO SCH (22:06)
[2019-05-07] MEDS: POTASSIUM CL SA 10 MEQ TAB PO SCH (22:06)
[2019-05-07] MEDS: SPIRONOLACTONE 25 MG TABLET PO SCH (22:08)
[2019-05-07] MEDS: MONTELUKAST 10 MG TAB PO SCH (22:08)
[2019-05-08] MEDS: ACETAMINOPHEN 500 MG TAB PO PRN ×4 (00:40→22:00)
[2019-05-08] MEDS: PANTOPRAZOLE 40MG TABLET PO SCH (06:35)
[2019-05-08] MEDS: LEVOTHYROXINE SOD 0.075 MG TAB PO SCH (06:35)
[2019-05-08] MEDS: ONDANSETRON 4 MG/2 ML VIAL IV PRN ×4 (07:26→23:06)
[2019-05-08] MEDS: LOSARTAN POTASSIUM 50 MG TABLET PO SCH (07:30)
[2019-05-08] MEDS: SERTRALINE HCL 50 MG TAB PO SCH (07:30)
[2019-05-08] MEDS: SPIRONOLACTONE 25 MG TABLET PO SCH ×2 (07:30→20:07)
[2019-05-08] MEDS: POTASSIUM CL SA 10 MEQ TAB PO SCH ×2 (07:31→20:08)
[2019-05-08] MEDS: DOCUSATE NA 100 MG CAP PO SCH ×2 (07:31→20:07)
[2019-05-08] MEDS: GABAPENTIN 300 MG CAP PO SCH (07:31)
[2019-05-08] MEDS: CEFTRIAXONE/SWI 1gm 1 GM/10 ML SYR IV SCH ×2 (07:31→20:07)
[2019-05-08] MEDS: Empagliflozin [Jardiance] 10 MG TAB PO SCH (07:32)
[2019-05-08] MEDS: HOME MED 1 EA UNK (Fluticasone/Vilanterol [Breo Ellipta 100-25 Mcg Inh] 1 PUFF) IH SCH (07:32)
[2019-05-08] MEDS: INSULIN -REGULAR HUMAN 50 UNIT/0.5 ML ML SQ SCH ×6 (07:55→20:08)
[2019-05-08] MEDS ORDERED: [UNRECOGNIZED DRUG - OTHER] SQ SCH (09:00)
[2019-05-08] MEDS ORDERED: QNASL IH SCH (09:00)
[2019-05-08] MEDS: NA CHLORIDE 0.9% 1,000 ML IV SCH (10:18)
[2019-05-08] MEDS ORDERED: ONDANSETRON 4 MG/2 ML VIAL IV PRN (12:10)
--- NOTE | 2019-05-08 12:10 | P.PN ---
Subjective Date of Service: 05/08/19 Chief Complaint: UTI with altered mental status Subjective: No new changes Review of Systems 10-point ROS is otherwise unremarkable Gastrointestinal: Nausea, Vomiting Physical Examination - Vital Signs Temperature: 100.7 F Blood Pressure: 128/59 Pulse: 105 Respirations: 18 Pulse Ox (%): 93 - Physical Exam General: Alert, In no apparent distress HEENT: Atraumatic, PERRLA, EOMI Neck: Supple, JVD not distended Respiratory: Clear to auscultation bilaterally, Normal air movement Cardiovascular: Regular rate/rhythm, Normal S1 S2 Gastrointestinal: Normal bowel sounds, No tenderness Musculoskeletal: No tenderness Integumentary: No rashes Neurological: Normal speech, Normal tone, Normal affect Lymphatics: No axilla or inguinal lymphadenopathy - Studies Microbiology Data (last 24 hrs): 05/07/19 00:32 Blood - Blood Anaerobic Blood Culture - Final Assessment & Plan - Problems (Diagnosis) (1) UTI (urinary tract infection) Onset Date: 01/08/17 Current Visit: No Status: Acute Plan: Patient is still doing poorly. Will add zofran. Continue ceftriaxone and iv fluids. Will await culture report. Qualifiers: Urinary tract infection type: acute cystitis Hematuria presence: without hematuria Qualified Code(s): N30.00 - Acute cystitis without hematuria (2) Porcelain gallbladder Onset Date: 01/08/17 Current Visit: No Status: Acute Plan: will refer to Dr. Toledo after discharge for an outpatient procedure. (3) Diabetes type 2, uncontrolled Onset Date: 01/08/17 Current Visit: No Status: Chronic Plan: will continue home insulin with sliding scale. She is currently not well controlled. Will consider an acute phase reactant Discharge Plan: Home Plan to discharge in: Greater than 2 days - Code Status/Comfort Care Code Status Assessed: No Critical Care: No Time Spent Managing Pts Care (In Minutes): 20
[2019-05-08] MEDS: WARFARIN SODIUM 5 MG TAB PO SCH (20:07)
[2019-05-08] MEDS: MONTELUKAST 10 MG TAB PO SCH (20:08)
[2019-05-08] MEDS: ATORVASTATIN 20 MG TAB PO SCH (20:08)
[2019-05-09] MEDS: ACETAMINOPHEN 500 MG TAB PO PRN ×3 (04:44→21:23)
[2019-05-09] MEDS: LEVOTHYROXINE SOD 0.075 MG TAB PO SCH (05:36)
[2019-05-09] MEDS: PANTOPRAZOLE 40MG TABLET PO SCH (05:36)
[2019-05-09] MEDS: ONDANSETRON 4 MG/2 ML VIAL IV PRN ×2 (06:17→18:53)
[2019-05-09] MEDS: INSULIN -REGULAR HUMAN 50 UNIT/0.5 ML ML SQ SCH ×6 (08:34→21:20)
[2019-05-09] MEDS: SERTRALINE HCL 50 MG TAB PO SCH (08:35)
[2019-05-09] MEDS: POTASSIUM CL SA 10 MEQ TAB PO SCH ×2 (08:35→21:21)
[2019-05-09] MEDS: GABAPENTIN 300 MG CAP PO SCH (08:35)
[2019-05-09] MEDS: Empagliflozin [Jardiance] 10 MG TAB PO SCH (08:36)
[2019-05-09] MEDS: HOME MED 1 EA UNK (Fluticasone/Vilanterol [Breo Ellipta 100-25 Mcg Inh] 1 PUFF) IH SCH (08:36)
[2019-05-09] MEDS: DOCUSATE NA 100 MG CAP PO SCH ×2 (08:36→21:21)
[2019-05-09] MEDS: LOSARTAN POTASSIUM 50 MG TABLET PO SCH (08:36)
[2019-05-09] MEDS: CEFTRIAXONE/SWI 1gm 1 GM/10 ML SYR IV SCH (08:37)
[2019-05-09] MEDS: SPIRONOLACTONE 25 MG TABLET PO SCH ×2 (08:37→21:00)
--- NOTE | 2019-05-09 11:51 | P.PN ---
Subjective Date of Service: 05/09/19 Chief Complaint: UTI with altered mental status Subjective: No new changes Review of Systems 10-point ROS is otherwise unremarkable Physical Examination - Vital Signs Temperature: 96.8 F Blood Pressure: 96/49 Pulse: 76 Respirations: 18 Pulse Ox (%): 97 - Physical Exam General: Alert, In no apparent distress HEENT: Atraumatic, PERRLA, EOMI Neck: Supple, JVD not distended Respiratory: Clear to auscultation bilaterally, Normal air movement Cardiovascular: Regular rate/rhythm, Normal S1 S2 Gastrointestinal: Normal bowel sounds, No tenderness Musculoskeletal: No tenderness Integumentary: No rashes Neurological: Normal speech, Normal tone, Normal affect Lymphatics: No axilla or inguinal lymphadenopathy - Studies Microbiology Data (last 24 hrs): 05/07/19 00:41 Clean Catch Urine [place] Count - Final >100,000 CFU/ML. 05/07/19 00:41 Clean Catch Urine - Final Escherichia Coli Esbl Assessment & Plan - Problems (Diagnosis) (1) UTI (urinary tract infection) Onset Date: 01/08/17 Current Visit: No Status: Acute Plan: Patient is still doing poorly. Will add zofran. cultures back. Will switch from ceftriaxone to doxy. Possible discharge tomorrow. Qualifiers: Urinary tract infection type: acute cystitis Hematuria presence: without hematuria Qualified Code(s): N30.00 - Acute cystitis without hematuria (2) Porcelain gallbladder Onset Date: 01/08/17 Current Visit: No Status: Acute Plan: will refer to Dr. Toledo after discharge for an outpatient procedure. (3) Diabetes type 2, uncontrolled Onset Date: 01/08/17 Current Visit: No Status: Chronic Plan: will continue home insulin with sliding scale. She is currently not well controlled. Will consider an acute phase reactant Discharge Plan: Home Plan to discharge in: 24 Hours - Code Status/Comfort Care Code Status Assessed: No Physician Review: Patient Assessed, Agree with Above Assessment and Plan Critical Care: No Time Spent Managing Pts Care (In Minutes): 25
[2019-05-09] MEDS: DOXYCYCLINE 100 MG in NA CHLORIDE 0.9% 100 ML IVPB SCH (12:16)
[2019-05-09] MEDS ORDERED: clonazePAM 0.5 MG TAB PO ONE (19:47)
[2019-05-09] MEDS: NYSTATIN 100MU/GM CREAM 15GM TOP SCH (21:00)
[2019-05-09] MEDS: WARFARIN SODIUM 5 MG TAB PO SCH (21:22)
[2019-05-09] MEDS: ATORVASTATIN 20 MG TAB PO SCH (21:22)
[2019-05-09] MEDS: MONTELUKAST 10 MG TAB PO SCH (21:23)
[2019-05-09] MEDS: NA CHLORIDE 0.9% 1,000 ML IV SCH (22:00)
[2019-05-10 04:05] VITALS: BMI 52.1
[2019-05-10] MEDS: PANTOPRAZOLE 40MG TABLET PO SCH (05:41)
[2019-05-10] MEDS: LEVOTHYROXINE SOD 0.075 MG TAB PO SCH (05:41)
[2019-05-10] MEDS: INSULIN -REGULAR HUMAN 50 UNIT/0.5 ML ML SQ SCH ×6 (07:30→21:36)
[2019-05-10] MEDS: NA CHLORIDE 0.9% 1,000 ML IV SCH ×2 (08:01→17:17)
[2019-05-10] MEDS: DOXYCYCLINE 100 MG in NA CHLORIDE 0.9% 100 ML IVPB SCH (08:02)
[2019-05-10] MEDS: SPIRONOLACTONE 25 MG TABLET PO SCH ×2 (08:06→21:37)
[2019-05-10] MEDS: POTASSIUM CL SA 10 MEQ TAB PO SCH ×2 (08:07→21:38)
[2019-05-10] MEDS: LOSARTAN POTASSIUM 50 MG TABLET PO SCH (08:07)
[2019-05-10] MEDS: GABAPENTIN 300 MG CAP PO SCH (08:07)
[2019-05-10] MEDS: SERTRALINE HCL 50 MG TAB PO SCH (08:07)
[2019-05-10] MEDS: DOCUSATE NA 100 MG CAP PO SCH ×2 (08:07→21:37)
[2019-05-10] MEDS: Empagliflozin [Jardiance] 10 MG TAB PO SCH (08:08)
[2019-05-10] MEDS: NYSTATIN 100MU/GM CREAM 15GM TOP SCH ×2 (08:08→21:00)
[2019-05-10] MEDS: HOME MED 1 EA UNK (Fluticasone/Vilanterol [Breo Ellipta 100-25 Mcg Inh] 1 PUFF) IH SCH (08:08)
[2019-05-10] MEDS: ALBUTEROL 2.5 MG/3 ML NEB SOL IH PRN ×2 (08:25→13:55)
--- NOTE | 2019-05-10 10:31 | P.PN ---
Subjective Date of Service: 05/10/19 Chief Complaint: UTI with altered mental status Subjective: No new changes (had chills last night) Review of Systems 10-point ROS is otherwise unremarkable General: Chills Physical Examination - Vital Signs Temperature: 98.1 F Blood Pressure: 113/55 Pulse: 79 Respirations: 20 Pulse Ox (%): 97 - Physical Exam General: Alert, In no apparent distress HEENT: Atraumatic, PERRLA, EOMI Neck: Supple, JVD not distended Respiratory: Clear to auscultation bilaterally, Normal air movement Cardiovascular: Regular rate/rhythm, Normal S1 S2 Gastrointestinal: Normal bowel sounds, No tenderness Musculoskeletal: No tenderness Integumentary: No rashes Neurological: Normal speech, Normal tone, Normal affect Lymphatics: No axilla or inguinal lymphadenopathy - Studies Microbiology Data (last 24 hrs): 05/07/19 00:41 Clean Catch Urine [place] Count - Final >100,000 CFU/ML. 05/07/19 00:41 Clean Catch Urine - Final Escherichia Coli Esbl Assessment & Plan - Problems (Diagnosis) (1) UTI (urinary tract infection) Onset Date: 01/08/17 Current Visit: No Status: Acute Plan: Patient is still doing poorly. Will add zofran. cultures back. Will switch from ceftriaxone to doxy. will keep her till she is without fevers for 24hours. As we had her on the wrong antibiotics. This may be appropriate. Qualifiers: Urinary tract infection type: acute cystitis Hematuria presence: without hematuria Qualified Code(s): N30.00 - Acute cystitis without hematuria (2) Porcelain gallbladder Onset Date: 01/08/17 Current Visit: No Status: Acute Plan: will refer to Dr. Toledo after discharge for an outpatient procedure. (3) Diabetes type 2, uncontrolled Onset Date: 01/08/17 Current Visit: No Status: Chronic Plan: will continue home insulin with sliding scale. She is currently not well controlled. Will consider an acute phase reactant Discharge Plan: Home Plan to discharge in: 24 Hours - Code Status/Comfort Care Code Status Assessed: No Physician Review: Patient Assessed, Agree with Above Assessment and Plan Critical Care: No Time Spent Managing Pts Care (In Minutes): 25
[2019-05-10] MEDS: ACETAMINOPHEN 500 MG TAB PO PRN (15:22)
[2019-05-10] MEDS: ATORVASTATIN 20 MG TAB PO SCH (21:37)
[2019-05-10] MEDS: MONTELUKAST 10 MG TAB PO SCH (21:37)
[2019-05-10] MEDS: WARFARIN SODIUM 5 MG TAB PO SCH (21:38)
[2019-05-11] MEDS: NA CHLORIDE 0.9% 1,000 ML IV SCH (05:01)
[2019-05-11] MEDS: PANTOPRAZOLE 40MG TABLET PO SCH (05:44)
[2019-05-11] MEDS: LEVOTHYROXINE SOD 0.075 MG TAB PO SCH (05:44)
[2019-05-11] MEDS: ALBUTEROL 2.5 MG/3 ML NEB SOL IH PRN (07:25)
[2019-05-11] MEDS: DOXYCYCLINE 100 MG in NA CHLORIDE 0.9% 100 ML IVPB SCH (08:36)
[2019-05-11] MEDS: INSULIN -REGULAR HUMAN 50 UNIT/0.5 ML ML SQ SCH ×3 (08:37→11:41)
[2019-05-11] MEDS: LOSARTAN POTASSIUM 50 MG TABLET PO SCH (08:38)
[2019-05-11] MEDS: DOCUSATE NA 100 MG CAP PO SCH (08:38)
[2019-05-11] MEDS: POTASSIUM CL SA 10 MEQ TAB PO SCH (08:38)
[2019-05-11] MEDS: GABAPENTIN 300 MG CAP PO SCH (08:38)
[2019-05-11] MEDS: SPIRONOLACTONE 25 MG TABLET PO SCH (08:38)
[2019-05-11] MEDS: SERTRALINE HCL 50 MG TAB PO SCH (08:38)
[2019-05-11] MEDS: Empagliflozin [Jardiance] 10 MG TAB PO SCH (08:38)
[2019-05-11] MEDS: HOME MED 1 EA UNK (Fluticasone/Vilanterol [Breo Ellipta 100-25 Mcg Inh] 1 PUFF) IH SCH (08:39)
[2019-05-11] MEDS: NYSTATIN 100MU/GM CREAM 15GM TOP SCH (08:39)
[2019-05-11 09:17] VITALS: O2SAT 93
[2019-05-11 12:17] VITALS: BP 141/61; TEMP 98.3
--- NOTE | 2019-05-14 08:46 | P.DS ---
Admission Date: 05/07/19 Discharge Date: 05/11/19 Primary Care Provider: Chau Disposition: ROUTINE DISCHARGE Discharge Condition: GOOD Reason for Admission: UTI with altered mental status - Problems (1) UTI (urinary tract infection) Onset Date: 01/08/17 Status: Acute Qualifiers: Urinary tract infection type: acute cystitis Hematuria presence: without hematuria Qualified Code(s): N30.00 - Acute cystitis without hematuria (2) Porcelain gallbladder Onset Date: 01/08/17 Status: Acute (3) Diabetes type 2, uncontrolled Onset Date: 01/08/17 Status: Chronic Brief History of Present Illness: Patient admitted by the hospitalist for UTI with leuckocytosis and confusion. Possible urosepsis Hospital Course: Patient was admitted for fluids and antibiotics. She had continuous fevers and chills in house. When the micro came back was found to have an ESBL was switched from ceftriaxone to doxycycline. This was based on the antibiotigram. She is doing well this morning. Will discharge the patient home on doxycycline. Will have her follow up with me. Thank you for allowing me to take part in the patients care Vital Signs/Physical Exam: Temp Pulse Resp BP Pulse Ox 98.3 F 81 22 H 141/61 H 94 05/11/19 12:00 05/11/19 12:00 05/11/19 12:00 05/11/19 12:00 05/11/19 12:00 General: Alert, In no apparent distress HEENT: Atraumatic, PERRLA, EOMI Neck: Supple, JVD not distended Respiratory: Clear to auscultation bilaterally, Normal air movement Cardiovascular: Regular rate/rhythm, Normal S1 S2 Gastrointestinal: Normal bowel sounds, No tenderness Musculoskeletal: No tenderness Integumentary: No rashes Neurological: Normal speech, Normal tone, Normal affect Lymphatics: No axilla or inguinal lymphadenopathy Laboratory Data at Discharge: WBC 13.8 K/uL (4.3-10.9) H D 05/07/19 06:15 Hgb 9.9 g/dL (12.0-15.0) L 05/07/19 06:15 Hct 30.0 % (36.0-45.0) L 05/07/19 06:15 Plt Count 272 K/uL (152-406) 05/07/19 06:15 PT 24.1 SECONDS (9.5-12.5) H 05/07/19 06:15 INR 2.10 05/07/19 06:15 APTT 44.0 SECONDS (24.3-36.9) H 05/07/19 06:15 Sodium 138 mmol/L (136-145) 05/07/19 06:15 Potassium 4.7 mmol/L (3.5-5.1) 05/07/19 06:15 BUN 41 mg/dL (7-18) H 05/07/19 06:15 Creatinine 1.31 mg/dL (0.55-1.3) H 05/07/19 06:15 Glucose 127 mg/dL (74-106) H 05/07/19 06:15 Total Bilirubin 0.4 mg/dL (0.2-1.0) 05/07/19 06:15 AST 8 U/L (15-37) L 05/07/19 06:15 ALT 16 U/L (12-78) 05/07/19 06:15 Alkaline Phosphatase 96 U/L (45-117) 05/07/19 06:15 Lipase 461 U/L (73-393) H 05/07/19 00:15 Home Medications: Gabapentin [Neurontin*] 1 cap PO DAILY 06/04/17 Albuterol Sulfate 1 puff IH Q6H PRN #30 06/05/17 Esomeprazole Mag Trihydrate [Nexium] 1 pill PO DAILY #30 06/05/17 Levothyroxine [Synthroid*] 75 mcg PO DAILY #30 06/05/17 Potassium Chloride 1 tab PO BID #60 06/05/17 Simvastatin 1 pill PO BEDTIME #30 06/05/17 Losartan Potassium 1 tab PO DAILY 10/09/17 Albuterol Sulfate [Albuterol Sulfate 0.083% Neb Soln] 3 ml IH DAILY PRN Albuterol Sulfate [Proair Hfa] 2 puff IH QID PRN 05/07/19 Docusate Sodium 1 tab PO BID 05/07/19 Empagliflozin [Jardiance] 1 tab PO DAILY 05/07/19 Fluticasone/Vilanterol [Breo Ellipta 100-25 Mcg INH] 1 puff IH DAILY 05/07/19 Furosemide 80 mg PO DAILY PRN 05/07/19 Insulin Regular, Human [Novolin R] 10 units SQ BEDTIME 05/07/19 Insulin Regular, Human [Novolin R] 10 units SQ DAILY 05/07/19 Montelukast Sodium [Singulair] 1 tab PO BEDTIME 05/07/19 Qnasl 80 Mcg/Inh 2 spray IH DAILY 05/07/19 Sertraline [Zoloft*] 1 tab PO DAILY 05/07/19 Spironolactone 1 tab PO BID 05/07/19 Warfarin Sodium [Coumadin] 1 tab PO BEDTIME 05/07/19 Xtrophy Insulin 50 units SQ DAILY 05/07/19 Doxycycline Monohydrate 100 mg PO BID 7 Days #14 tablet 05/11/19 New Medications: Doxycycline Monohydrate 100 mg PO BID 7 Days #14 tablet Diet: ADA Activity: Ad kleber Followup: Mike Ritchie MD [Primary Care Provider] - 1 Week (call to schedule appointment) Time spent managing pt's care (in minutes): 30
== END 2019-05-11 15:17 | disposition home or self-care (01) | DRG 690 ==
LOC: ER 23:34 → ERHOLD 05-07 02:50 → 4TH 05-07 03:25
PROVIDERS: ADMIT Internal Medicine; ATTEND Hospitalist
DX: N30.00 Acute cystitis without hematuria (principal); I50.42 Chronic combined systolic (congestive) and diastolic (congestive) heart failure; B96.20 Unspecified Escherichia coli [E. coli] as the cause of diseases classified elsewhere; Z16.12 Extended spectrum beta lactamase (ESBL) resistance; E11.65 Type 2 diabetes mellitus with hyperglycemia; K82.8 Other specified diseases of gallbladder; G47.33 Obstructive sleep apnea (adult) (pediatric); I11.0 Hypertensive heart disease with heart failure; E03.9 Hypothyroidism, unspecified; E78.5 Hyperlipidemia, unspecified; Z95.2 Presence of prosthetic heart valve; Z85.42 Personal history of malignant neoplasm of other parts of uterus; Z87.891 Personal history of nicotine dependence; Z95.1 Presence of aortocoronary bypass graft
CPT/HCPCS: 36415; 71045; 71250; 74176; 80048; 80053; 80076; 81003; 81015; 82550; 82962; 83605; 83690; 84145; 84484; 85025; 85610; 85730; 87040; 87077; 87086; 87088; 87186; 93005; 94640; 96361; 96365; 97116; 97161; 97530; 99285; J0696; J2270; J2405; J7030

== ENCOUNTER 2019-06-27 20:38 | Inpatient (IN) | payer OTHER ==
[2019-06-27] MEDS ORDERED: NA CHLORIDE 0.9% 1,000 ML ONE (20:45)
[2019-06-27] MEDS ORDERED: ONDANSETRON 4 MG/2 ML VIAL ONE (20:45)
[2019-06-27 22:35] LABS: Absolute Lymphocytes (CBC) 0.7 K/uL (0.7-4.9); Basophils % 0.4 % (0-1.3); Hematocrit 32.4 % (36.0-45.0); Lymphocytes % 7.5 % (15.3-44.8); MPV 7.8 fL (7.6-11.3); RBC Red Blood Cell Count 4.29 M/uL (3.86-4.86)
[2019-06-27 22:55] LABS: ALT/SGPT 20 U/L (12-78); AST/SGOT 20 U/L (15-37); Albumin 3.2 g/dL (3.4-5.0); Alkaline Phosphatase 106 U/L (45-117); BUN Blood Urea Nitrogen 32 mg/dL (7-18); Bicarbonate 24 mmol/L (21-32); Bilirubin Direct 0.2 mg/dL (0-0.2); Bilirubin Total 0.6 mg/dL (0.2-1.0); Glucose Level 144 mg/dL (74-106); Magnesium 2.3 mg/dL (1.8-2.4); NT PRO-BNP 2635 pg/mL (<125); Potassium 4.1 mmol/L (3.5-5.1); Protein, Total 8.2 g/dL (6.4-8.2); Sodium Level 135 mmol/L (136-145); Troponin (Emerg Dept Use Only) < 0.02 ng/mL (0.0-0.045)
[2019-06-27 22:59] LABS: Protime INR 4.54
[2019-06-27 23:05] LABS: Urine Blood 2+ (NEG); Urine Glucose 2+ (NEG); Urine Protein NEGATIVE (NEG); Urine Specific Gravity <1.005 (1.005-1.030)
[2019-06-27 23:14] LABS: Urine Bacteria LOADED /HPF (<20); Urine Culture Reflex Order REFLEXED; Urine RBC <5 /HPF (NONE SEEN)
[2019-06-27] MEDS ORDERED: ACETAMINOPHEN 500 MG TAB ONE (23:56)
[2019-06-28] MEDS ORDERED: Meropenem 1 GM/100 ML BAG ONE (00:25)
--- NOTE | 2019-06-28 00:27 | ER ---
Nurse's Notes [facility] Name: Tessie Michaud Age: 59 yrs Sex: Female : 1960 Arrival Date: 06/27/2019 Time: 20:42 Bed 18 Private MD: Diagnosis: Urinary tract infection, site not specified;Failed outpatient treatment;Abnormal coagulation profile-elevated INR due to coumadin Presentation: 06/27 20:48 Presenting complaint: EMS states: patient is complaining of on and off nasal bleeding mg2 since yesterday. no active bleeding on scene and here in ED. she vomited a lot in ed though. she states that she has vomiting since yesterday. she's been having uti for 1.5 months. and yesterday she was started on ciprofloxacin for UTI. she is on coumadin. Transition of care: patient was not received from another setting of care. Onset of symptoms was June 26, 2019. Risk Assessment: Do you want to hurt yourself or someone else? Patient reports no desire to harm self or others. Initial Sepsis Screen: Does the patient meet any 2 criteria? No. Patient's initial sepsis screen is negative. Does the patient have a suspected source of infection? No. Patient's initial sepsis screen is negative. Care prior to arrival: None. 20:48 Method Of Arrival: EMS: [facility] mg2 20:48 Acuity: KATIA 2 mg2 Historical: - Allergies: 20:53 No Known Allergies; mg2 - Home Meds: 23:28 Albuterol Inhl [Active]; benzonatate Oral [Active]; esomeprazole magnesium Oral mg2 [Active]; Furosemide Oral [Active]; gabapentin Oral [Active]; Glimepiride Oral [Active]; insulin regular human inhalation [Active]; Levothroid Oral [Active]; losartan Oral [Active]; mometasone inhalation [Active]; montelukast Oral [Active]; Naproxen Oral [Active]; pioglitazone Oral [Active]; potassium chloride (bulk) miscellaneous [Active]; Simvastatin Oral [Active]; Coumadin Oral [Active]; - PMHx: 20:53 CHF; Diabetes - NIDDM; Home O2 at 2L NC as needed; Hyperlipidemia; Thyroid problem; mg2 Hypertension; - PSHx: 23:28 heart valve replacement; mg2 - Immunization history:: Flu vaccine status is unknown. - Social history:: Smoking status: Patient/guardian denies using tobacco, Patient/guardian denies using alcohol, street drugs, IV drugs. - Ebola Screening: : No symptoms or risks identified at this time. Screenin:00 Abuse screen: Denies threats or abuse. Denies injuries from another. Nutritional mg2 screening: No deficits noted. Tuberculosis screening: No symptoms or risk factors identified. Fall Risk IV access (20 points). Assessment: 22:00 Pain: Complains of pain in back Pain does not radiate. Pain currently is 8 out of 10 on mg2 a pain scale. Quality of pain is described as aching, Pain began gradually, Is intermittent. 22:00 Neuro: Level of Consciousness is awake, alert, obeys commands, Oriented to person, mg2 place, time, situation. Cardiovascular: Capillary refill < 3 seconds Patient's skin is warm and dry. Respiratory: Airway is patent Respiratory effort is even, unlabored, Respiratory pattern is regular, symmetrical. GI: Pt is actively vomiting greenish, tea colored emesis. : Urine is pls see urine dip Reports history of uti. EENT: No signs and/or symptoms were reported regarding the EENT system. Derm: Skin is intact, is healthy with good turgor, Skin is pink, warm \T\ dry. normal. Musculoskeletal: Circulation, motion, and sensation intact. Capillary refill < 3 seconds. 22:59 Reassessment: critical lab result- INR-4.54 relayed to the provider. mg2 23:22 General: Appears in no apparent distress. comfortable, Behavior is calm, cooperative. mg2 23:58 Reassessment: patient complained of back pain and bruising at the back. provider mg2 informed. patient moved to a wheelchair and she felt more comfortable on it. 06/28 01:13 Reassessment: patient still in ct scan. mg2 Vital Signs: 06/27 20:51 BP 112 / 70; Pulse 82; Resp 18; Temp 100.2; Pulse Ox 89% on R/A; Weight 120.2 kg; mg2 Height 5 ft. 2 in. (157.48 cm); Pain 8/10; 23:15 BP 138 / 48; Pulse 81; Resp 17; Pulse Ox 98% on 2 lpm NC; mg2 23:58 BP 113 / 53; Pulse 82; Resp 18; Temp 100.3; Pulse Ox 100% on R/A; mg2 06/28 00:30 BP 121 / 56; Pulse 79; Resp 15; Pulse Ox 100% ; rv 00:37 Temp 99.7(O); mg2 01:00 BP 118 / 54; Pulse 81; Resp 16; Pulse Ox 100% on R/A; rv 01:30 BP 121 / 58; Pulse 76; Resp 15; Pulse Ox 100% on R/A; rv 06/27 20:51 Body Mass Index 48.47 (120.20 kg, 157.48 cm) mg2 ED Course: 06/27 20:42 Patient arrived in ED. rv 20:47 Antonio Robles, TODD is Primary Nurse. mg2 20:51 Triage completed. mg2 20:52 Arm band placed on. mg2 20:59 Inserted saline lock: 22 gauge in right antecubital area, using aseptic technique. mg2 21:03 Denys Mendoza PA is PHCP. cp 21:03 Seun Pratt MD is Attending Physician. cp 23:15 Patient has correct armband on for positive identification. secured entrance monitor on. Pulse mg2 ox on. NIBP on. Door closed. Warm blanket given. 23:24 No provider procedures requiring assistance completed. mg2 06/28 00:25 Emanuel Ansari DO is Hospitalizing Provider. cp 00:48 Patient admitted, IV remains in place. mg2 Administered Medications: 06/27 21:13 Drug: Zofran 4 mg Route: IVP; Site: right forearm; mg2 23:21 Follow up: Response: No adverse reaction; Marked relief of symptoms mg2 21:14 Drug: NS 0.9% 1000 ml Route: IV; Rate: 1 bolus; Site: right forearm; mg2 23:21 Follow up: Response: No adverse reaction; IV Status: Completed infusion; IV Intake: mg2 1000ml 23:57 Drug: Tylenol 1000 mg Route: PO; mg2 06/28 00:37 Follow up: Response: No adverse reaction; Marked relief of symptoms; Temperature is mg2 decreased 00:37 Drug: Meropenem 1 grams Route: IV; Rate: calculated rate; Site: right forearm; mg2 01:35 Follow up: IV Status: Completed infusion rv Intake: 06/27 23:21 IV: 1000ml; Total: 1000ml. mg2 Outcome: 06/28 00:26 Decision to Hospitalize by Provider. cp 00:49 Admitted to Tele accompanied by nurse, via wheelchair, room 425, with chart, Report mg2 called to TODD [facility] 00:49 Condition: stable 00:49 Instructed on the need for admit, Demonstrated understanding of instructions. 01:36 Patient left the ED. rv Signatures: Denys Mendoza PA PA cp [place], Michele, RN RN mg2 Gerald Cordova RN RN rv Corrections: (The following items were deleted from the chart) 06/27 20:52 20:48 Acuity: KATIA 3 mg2 mg2 21:06 20:51 BP 112 / 70; Pulse 82bpm; Resp 18bpm; Pulse Ox 89% RA; Temp 100.2F; mg2 mg2 06/28 00:02 06/27 23:58 Pulse 82bpm; Resp 18bpm; Pulse Ox 100% RA; Temp 100.3F; mg2 mg2
--- NOTE | 2019-06-28 00:28 | EDPHYS ---
Physician Documentation [facility] Name: Tessie Michaud Age: 59 yrs Sex: Female : 1960 Arrival Date: 06/27/2019 Time: 20:42 Bed 18 Private MD: ED Physician Seun Pratt HPI: 06/27 22:10 This 59 yrs old Female presents to ER via EMS with complaints of urinary tract cp infection. 22:10 The patient presents with urinary symptoms, frequency. Onset: The symptoms/episode cp began/occurred 1.5 month(s) ago. 22:10 Associated signs and symptoms: Pertinent positives: fever. Patient reports she was cp diagnosed with recurrent UTI and started on ciprofloxacin yesterday but symptoms have worsened. Patient reports being hospitalized in April 2019 for sepsis due to UTI. Historical: - Allergies: 20:53 No Known Allergies; mg2 - Home Meds: 23:28 Albuterol Inhl [Active]; benzonatate Oral [Active]; esomeprazole magnesium Oral mg2 [Active]; Furosemide Oral [Active]; gabapentin Oral [Active]; Glimepiride Oral [Active]; insulin regular human inhalation [Active]; Levothroid Oral [Active]; losartan Oral [Active]; mometasone inhalation [Active]; montelukast Oral [Active]; Naproxen Oral [Active]; pioglitazone Oral [Active]; potassium chloride (bulk) miscellaneous [Active]; Simvastatin Oral [Active]; Coumadin Oral [Active]; - PMHx: 20:53 CHF; Diabetes - NIDDM; Home O2 at 2L NC as needed; Hyperlipidemia; Thyroid problem; mg2 Hypertension; - PSHx: 23:28 heart valve replacement; mg2 - Immunization history:: Flu vaccine status is unknown. - Social history:: Smoking status: Patient/guardian denies using tobacco, Patient/guardian denies using alcohol, street drugs, IV drugs. - Ebola Screening: : No symptoms or risks identified at this time. ROS: 22:15 Constitutional: Positive for fever, poor PO intake. cp 22:15 Eyes: Negative for injury, pain, redness, and discharge. cp 22:15 Cardiovascular: Negative for chest pain, edema, palpitations. cp 22:15 Respiratory: Negative for cough, shortness of breath, wheezing. 22:15 Abdomen/GI: Negative for vomiting, diarrhea, constipation, black/tarry stool, rectal bleeding. 22:15 : Positive for urinary symptoms, Negative for vaginal bleeding. cp 22:15 Neuro: Positive for weakness, Negative for altered mental status, headache. 22:15 All other systems are negative. Exam: 22:20 Constitutional: The patient appears in no acute distress, alert, awake, cp non-diaphoretic, well developed, well nourished, obese, uncomfortable. 22:20 Head/Face: Normocephalic, atraumatic. cp 22:20 Eyes: Pupils equal round and reactive to light, extra-ocular motions intact. Lids and cp lashes normal. Conjunctiva and sclera are non-icteric and not injected. Cornea within normal limits. Periorbital areas with no swelling, redness, or edema. ENT: Nares patent. No nasal discharge, no septal abnormalities noted. Tympanic membranes are normal and external auditory canals are clear. Oropharynx with no redness, swelling, or masses, exudates, or evidence of obstruction, uvula midline. Mucous membranes moist. Chest/axilla: Normal chest wall appearance and motion. Nontender with no deformity. No lesions are appreciated. 22:20 Cardiovascular: Rate: normal, Rhythm: regular, Edema: is not appreciated, JVD: is not appreciated. 22:20 Respiratory: the patient does not display signs of respiratory distress, Respirations: normal, no use of accessory muscles, no retractions, no splinting, no tachypnea, labored breathing, is not present, Breath sounds: are clear throughout, no decreased breath sounds, no stridor, no wheezing. 22:20 Abdomen/GI: Inspection: abdomen appears normal, Bowel sounds: active, all quadrants, Palpation: abdomen is soft and non-tender, in all quadrants, rebound tenderness, is not appreciated, voluntary guarding, is not appreciated, involuntary guarding, is not appreciated. 22:20 Back: CVA tenderness, is noted bilaterally. 22:20 Skin: no rash present. cp 22:20 Neuro: Orientation: to person, place \T\ time. Mentation: is normal, Cerebellar function: is grossly normal, Motor: moves all fours, strength is normal, Sensation: is normal. 22:35 ECG was reviewed by the Attending Physician. cp Vital Signs: 20:51 BP 112 / 70; Pulse 82; Resp 18; Temp 100.2; Pulse Ox 89% on R/A; Weight 120.2 kg; mg2 Height 5 ft. 2 in. (157.48 cm); Pain 8/10; 23:15 BP 138 / 48; Pulse 81; Resp 17; Pulse Ox 98% on 2 lpm NC; mg2 23:58 BP 113 / 53; Pulse 82; Resp 18; Temp 100.3; Pulse Ox 100% on R/A; mg2 06/28 00:30 BP 121 / 56; Pulse 79; Resp 15; Pulse Ox 100% ; rv 00:37 Temp 99.7(O); mg2 01:00 BP 118 / 54; Pulse 81; Resp 16; Pulse Ox 100% on R/A; rv 01:30 BP 121 / 58; Pulse 76; Resp 15; Pulse Ox 100% on R/A; rv 06/27 20:51 Body Mass Index 48.47 (120.20 kg, 157.48 cm) mg2 MDM: 06/27 21:32 Patient medically screened. cp 22:00 Differential diagnosis: urinary tract infection, sepsis. cp 06/28 00:10 Data reviewed: vital signs, nurses notes, lab test result(s), radiologic studies. cp 00:10 Test interpretation: by ED physician or midlevel provider: ECG. cp 00:10 Physician consultation: Emanuel Ansari DO regarding admission, to the medical/surgical cp unit. patient's condition, and will see patient in ED, shortly. 06/27 22:05 Order name: Basic Metabolic Panel; Complete Time: 23:51 cp 06/27 22:05 Order name: CBC with Diff; Complete Time: 22:59 cp 06/27 23:00 Interpretation: Normal except: HGB 10.5; HCT 32.4; MCV 75.6; MCH 24.4; RDW 16.4; YANY% cp 81.3; LYM% 7.5; NEUT A 8.1. 06/27 22:05 Order name: LFT's; Complete Time: 23:51 cp 06/27 22:05 Order name: Magnesium; Complete Time: 23:51 cp 06/27 22:05 Order name: PT-INR; Complete Time: 23:02 cp 06/27 23:02 Interpretation: Abnormal: INR 4.54; PT 50.5. cp 06/27 22:05 Order name: Troponin (emerg Dept Use Only); Complete Time: 23:51 cp 06/27 22:05 Order name: Ptt, Activated; Complete Time: 23:02 cp 06/27 23:02 Interpretation: Abnormal: PTT 65.0. cp 06/27 22:05 Order name: Urine Microscopic Only; Complete Time: 23:51 cp 06/27 23:52 Interpretation: Normal except: UWBC 20-50; UBACT LOADED. cp 06/27 22:05 Order name: Procalcitonin; Complete Time: 23:51 cp 06/27 22:05 Order name: Lactate; Complete Time: 22:59 cp 06/27 23:00 Interpretation: Within normal limits: LAC 0.9. cp 06/27 22:08 Order name: BNP; Complete Time: 23:51 cp 06/27 23:00 Order name: Urine Dipstick--Ancillary (enter results); Complete Time: 23:51 em1 06/27 23:16 Order name: Urine Culture EDMS 06/27 22:05 Order name: EKG; Complete Time: 22:08 cp 06/27 22:05 Order name: Cardiac monitoring; Complete Time: 22:36 cp 06/27 22:05 Order name: EKG - Nurse/Tech; Complete Time: 22:35 cp 06/27 22:05 Order name: IV Saline Lock; Complete Time: 22:35 cp 06/27 22:05 Order name: Labs collected and sent; Complete Time: 22:35 cp 06/27 22:05 Order name: O2 Per Protocol; Complete Time: 22:35 cp 06/27 22:05 Order name: O2 Sat Monitoring; Complete Time: 22:35 cp 06/27 22:05 Order name: Urine Dipstick-Ancillary (obtain specimen); Complete Time: 22:58 cp 06/27 23:55 Order name: CT Abd/Pelvis - IV Contrast Only cp EC/04 22:35 Rate is 80 beats/min. Rhythm is regular. VT interval is normal. QRS interval is normal. cp QT interval is normal. T waves are Inverted in lead aVR. Interpreted by me. Reviewed by me. Administered Medications: 21:13 Drug: Zofran 4 mg Route: IVP; Site: right forearm; mg2 23:21 Follow up: Response: No adverse reaction; Marked relief of symptoms mg2 21:14 Drug: NS 0.9% 1000 ml Route: IV; Rate: 1 bolus; Site: right forearm; mg2 23:21 Follow up: Response: No adverse reaction; IV Status: Completed infusion; IV Intake: mg2 1000ml 23:57 Drug: Tylenol 1000 mg Route: PO; mg2 06/28 00:37 Follow up: Response: No adverse reaction; Marked relief of symptoms; Temperature is mg2 decreased 00:37 Drug: Meropenem 1 grams Route: IV; Rate: calculated rate; Site: right forearm; mg2 01:35 Follow up: IV Status: Completed infusion rv Disposition: 06:06 Co-signature as Attending Physician, Seun Pratt MD. pkl Disposition: 06/28/19 00:26 Hospitalization ordered by Emanuel Ansari for Inpatient Admission. Preliminary diagnosis are Urinary tract infection, site not specified, Failed outpatient treatment, Abnormal coagulation profile - elevated INR due to coumadin. - Bed requested for Telemetry/MedSurg (Inpatient). - Status is Inpatient Admission. rv - Condition is Stable. - Problem is new. - Symptoms have improved. UTI on Admission? Yes Signatures: Dispatcher [employer] EDNJ Seun Pratt MD MD pkl Denys Mendoza PA PA cp Funmi Lang RN RN cg Antonio Robles RN RN mg2 Gerald Cordova RN RN rv Corrections: (The following items were deleted from the chart) 06/27 22:31 22:08 PTT, ACTIVATED+COAG.LAB.BRZ ordered. [facility] 23:21 22:05 Malin ordered. cp mg2 06/28 00:31 00:26 Hospitalization Ordered by Emanuel Ansari DO for Inpatient Admission. Preliminary cg diagnosis is Urinary tract infection, site not specified; Failed outpatient treatment. Bed requested for Telemetry/MedSurg (Inpatient). Status is Inpatient Admission. Condition is Stable. Problem is new. Symptoms have improved. UTI on Admission? Yes. cp 00:31 00:31 06/28/2019 00:26 Hospitalization Ordered by Emanuel Ansari DO for Inpatient cp Admission. Preliminary diagnosis is Urinary tract infection, site not specified; Failed outpatient treatment. Bed requested for Telemetry/MedSurg (Inpatient). Status is Inpatient Admission. Condition is Stable. Problem is new. Symptoms have improved. UTI on Admission? Yes. cg 01:36 00:31 06/28/2019 00:26 Hospitalization Ordered by Emanuel Ansari DO for Inpatient rv Admission. Preliminary diagnosis is Urinary tract infection, site not specified; Failed outpatient treatment; Abnormal coagulation profile - elevated INR due to coumadin. Bed requested for Telemetry/MedSurg (Inpatient). Status is Inpatient Admission. Condition is Stable. Problem is new. Symptoms have improved. UTI on Admission? Yes. cp :40 06/27 21:20 This 59 yrs old Female presents to ER via EMS with complaints of cp urinary tract infection. cp 06/28 03:40 06/27 21:20 The patient presents with urinary symptoms, cp cp 06/28 03:40 06/27 21:20 Onset: The symptoms/episode began/occurred 1.5 month(s) ago, cp cp
--- NOTE | 2019-06-28 00:45 | P.HP ---
Certification for Inpatient Patient admitted to: Inpatient With expected LOS: >2 Midnights Patient will require the following post-hospital care: Penitentiary Practitioner: I am a practitioner with admitting privileges, knowledge of patient current condition, hospital course, and medical plan of care. Services: Services provided to patient in accordance with Admission requirements found in Title 42 Section 412.3 of the Code of Federal Regulations Patient History Date of Service: 06/28/19 Primary Care Provider: Dr. Ritchie(We are covering while he is on vacation); Card- Dr. Pereyra Reason for admission: Fever, back pain History of Present Illness: 59-year-old female presented to the emergency room with fever and back pain. Patient with history of diabetes mellitus type 2, hypothyroidism, COPD, aortic valve replacement on chronic anti coagulation therapy, hypertension and recurrent UTI. Patient seen April 2019 for sepsis and UTI. Patient had ESBL at that time. For the past several days patient has reported fever, back pain. Today she had increasing fever and chills. Some nausea noted. Back pain was noted with abdominal bloating. She had been seen recently at urgent care and given antibiotic. She was diagnosed with the UTI at that time. Her symptoms have not improved. She came to the ER for further evaluation. In the ER patient evaluated. Vital signs stable. White count 9.9, hemoglobin 10.5. Platelet count 291. INR elevated at 4.5. Troponin unremarkable. Lactic acid within normal range. Pro calcitonin within normal range. Sodium 135, potassium 4.1, BUN of 32, creatinine 1.2 with a GFR 41. Glucose 144. Urinalysis was positive for bacteria. Patient admitted for further evaluation and treatment. The patient ER, she appeared comfortable. She does not appear septic. Patient likely with recurrent UTI-ESBL. Patient admitted for treatment. Allergies No Known Allergies Allergy (Verified 05/07/19 04:19) Home medications list reviewed: Yes Home Medications: Gabapentin [Neurontin*] 1 cap PO DAILY 06/04/17 Albuterol Sulfate 1 puff IH Q6H PRN #30 06/05/17 Esomeprazole Mag Trihydrate [Nexium] 1 pill PO DAILY #30 06/05/17 Levothyroxine [Synthroid*] 75 mcg PO DAILY #30 06/05/17 Potassium Chloride 1 tab PO BID #60 06/05/17 Simvastatin 1 pill PO BEDTIME #30 06/05/17 Losartan Potassium 1 tab PO DAILY 10/09/17 Albuterol Sulfate [Albuterol Sulfate 0.083% Neb Soln] 3 ml IH DAILY PRN Albuterol Sulfate [Proair Hfa] 2 puff IH QID PRN 05/07/19 Docusate Sodium 1 tab PO BID 05/07/19 Empagliflozin [Jardiance] 1 tab PO DAILY 05/07/19 Fluticasone/Vilanterol [Breo Ellipta 100-25 Mcg INH] 1 puff IH DAILY 05/07/19 Furosemide 80 mg PO DAILY PRN 05/07/19 Insulin Regular, Human [Novolin R] 10 units SQ BEDTIME 05/07/19 Insulin Regular, Human [Novolin R] 10 units SQ DAILY 05/07/19 Montelukast Sodium [Singulair] 1 tab PO BEDTIME 05/07/19 Qnasl 80 Mcg/Inh 2 spray IH DAILY 05/07/19 Sertraline [Zoloft*] 1 tab PO DAILY 05/07/19 Spironolactone 1 tab PO BID 05/07/19 Warfarin Sodium [Coumadin] 1 tab PO BEDTIME 05/07/19 Xtrophy Insulin 50 units SQ DAILY 05/07/19 Doxycycline Monohydrate 100 mg PO BID 7 Days #14 tablet 05/11/19 - Past Medical/Surgical History Diabetic: Yes -: Hypothyroidism -: Diabetes mellitus type 2, insulin dependent -: COPD -: Hypertension -: Obstructive sleep apnea noncompliant -: UTERINE CA (BARIUM IMPLANTS) -: CHF, diastolic -: Hyperlipidemia -: Obesity -: Recurrent UTI -: Bilateral cataract surgery -: Hemorrhoidectomy -: Aortic valve replacement -: CABG Psychosocial/ Personal History: Patient is single. She lives at home. - Family History Family History: Reviewed- Non-Contributory - Family History Mother -: Diabetes, Other (see notes) Notes: CHF Father -: Diabetes, Cancer Notes: Prostate Cancer Brother -: Diabetes Sister -: Diabetes Notes: Third and sixth nerve palsy - Social History Smoking Status: Never smoker Alcohol use: Yes CD- Drugs: No Caffeine use: No Place of Residence: Home Review of Systems General: Fever, Chills, As per HPI Eyes: Unremarkable ENT: Unremarkable Respiratory: Unremarkable Cardiovascular: Unremarkable Gastrointestinal: Distention, As per HPI Genitourinary: Dysuria, As per HPI Musculoskeletal: Back Pain, As per HPI Integumentary: Unremarkable Neurological: Unremarkable Lymphatics: Unremarkable Physical Examination - Physical Exam General: Alert, In no apparent distress, Oriented x3, Cooperative HEENT: Atraumatic, Normocephalic, PERRLA, Mucous membr. moist/pink Neck: Supple Respiratory: Clear to auscultation bilaterally, Normal air movement Cardiovascular: Normal pulses, Regular rate/rhythm Gastrointestinal: Normal bowel sounds, Soft and benign, Non-distended, No tenderness, No masses, No rebound, No guarding Musculoskeletal: No contractures, No erythema, No tenderness, No warmth Integumentary: No tenderness/swelling, No erythema, No warmth, No cyanosis Neurological: Normal speech, Normal strength at 5/5 x4 extr, Normal tone, Normal affect - Studies Laboratory Data (last 24 hrs) 06/27/19 22:25: PT 50.5 H, INR 4.54 H*, APTT 65.0 H 06/27/19 22:25: WBC 9.9, Hgb 10.5 L, Hct 32.4 L, Plt Count 291 06/27/19 22:25: Sodium 135 L, Potassium 4.1, BUN 32 H, Creatinine 1.21, Glucose 144 H, Magnesium 2.3 D, Total Bilirubin 0.6, AST 20, ALT 20, Alkaline Phosphatase 106 06/27/19 22:08: APTT Cancelled Assessment and Plan - Plan Impression: Recurrent UTI suspect ESBL Diabetes mellitus type 2, insulin dependent Hypertension COPD Obstructive sleep apnea Aortic valve replacement on chronic anti coagulation therapy, INR supratherapeutic Hypothyroidism GERD Obesity Plan: Recurrent UTI suspect ESBL: Patient will be admitted for further evaluation and treatment. Patient likely has ESBL and will require IV antibiotic therapy for at least 7 days. Patient had ESBL in the past but was not on IV antibiotic therapy. Will continue with IV meropenem. Blood and urine cultures obtained to verify. Will order PICC line as the patient will require 7 days of IV antibiotic therapy. Social work consulted for skilled placement to complete antibiotics. Physical therapy will be ordered. Hospitalist covering for Dr. Ritchie until Sunday. Daytime hospitalist will continue her care. Anticipate discharge to skilled facility to continue IV antibiotic therapy on Sunday. Will need to verify urine culture. Diabetes mellitus type 2, insulin dependent: Will provide insulin siding scale and Accu-Cheks. Obtain and restart home medication. Hypertension: Will need to obtain and restart home medication. Will provide IV medication for now. COPD: Will provide COPD medication. Obstructive sleep apnea: Patient has been non compliant in the past. Will monitor closely. Aortic valve replacement on chronic anti coagulation therapy, INR supratherapeutic: INR supratherapeutic at this time. Likely related to recent antibiotic use. Will hold Coumadin at this time. Maintain INR between 2.5- 3.5. Will need to restart Coumadin but this may need to be adjusted once INR below 3.5. Hypothyroidism: Check tsh and free T4. Will obtain and restart home medication. GERD: Will provide medication. Obesity: Will calculate BMI. Address lifestyle modification education. Discharge Plan: Shelter Plan to discharge in: Greater than 2 days - Advance Directives Does patient have a Living Will: No Does patient have a Durable POA for Healthcare: No - Code Status/Comfort Care Code Status Assessed: Yes (Patient is full code) Time Spent Managing Pts Care (In Minutes): 55
[2019-06-28] MEDS ORDERED: ONDANSETRON 4 MG/2 ML VIAL IV PRN (01:30)
[2019-06-28] MEDS ORDERED: HYDRALAZINE HCL 20 MG/ML VIAL IV PRN (01:30)
[2019-06-28] MEDS ORDERED: ALBUTEROL 2.5 MG/3 ML NEB SOL NEB PRN (01:30)
[2019-06-28] MEDS ORDERED: IPRATROPIUM BROM 0.5MG/2.5ML NEB PRN (01:30)
[2019-06-28 02:39] LABS: Thyroid Stimulating Hormone 0.998 uIU/mL (0.360-3.740)
[2019-06-28] MEDS: TRAMADOL HCL 50 MG TAB PO PRN ×2 (03:55→20:12)
[2019-06-28] MEDS: INSULIN -REGULAR HUMAN 50 UNIT/0.5 ML ML SQ SCH ×4 (07:30→20:06)
[2019-06-28] MEDS: ARFORMOTEROL TARTRATE 15 MCG/2 ML VIAL.NEB NEB SCH ×3 (08:10→23:05)
[2019-06-28] MEDS: FAMOTIDINE 20 MG TAB PO SCH (08:40)
[2019-06-28] MEDS ORDERED: INFLUENZA VACCINE (for 3y+) 0.5 ML DOSE IMVAC ONE (09:00)
[2019-06-28] MEDS: ACETAMINOPHEN 500 MG TAB PO PRN (09:25)
--- NOTE | 2019-06-28 10:46 | EKG ---
Test Date: 2019-06-27 Test Time: 22:30:51 Inlayer: MEASUREMENT RESULTS: Intervals: Rate: 80 RI: 168 QRSD: 88 QT: 388 QTc: 447 Merritt: P: 60 RI: 168 QRS: 19 T: 46 INTERPRETIVE STATEMENTS: Sinus rhythm with marked sinus arrhythmia Septal infarct, age undetermined Abnormal ECG Compared to ECG 05/07/2019 00:02:33 Myocardial infarct finding now present Sinus tachycardia no longer present Right-axis deviation no longer present Electronically Signed On 06-28-19 10:45:30 CDT by Kaleb Bates
[2019-06-28] MEDS ORDERED: Meropenem 1000 MG/VIAL IV SCH (14:00)
[2019-06-28] MEDS ORDERED: GABAPENTIN 300 MG CAP PO PRN (15:28)
[2019-06-28] MEDS: Meropenem 1,000 MG in NA CHLORIDE 0.9% 100 ML IV SCH (16:17)
[2019-06-28] MEDS: FUROSEMIDE 40 MG TABLET PO SCH (18:05)
[2019-06-28] MEDS: SPIRONOLACTONE 25 MG TABLET PO SCH (20:07)
[2019-06-28] MEDS: MONTELUKAST 10 MG TAB PO SCH (20:07)
[2019-06-28] MEDS: POTASSIUM CL SA 10 MEQ TAB PO SCH (20:07)
[2019-06-28] MEDS: DOCUSATE NA 100 MG CAP PO SCH (20:07)
[2019-06-28] MEDS: ATORVASTATIN 20 MG TAB PO SCH (20:07)
[2019-06-28] MEDS ORDERED: INSULIN -REGULAR HUMAN 50 UNIT/0.5 ML ML SQ SCH (21:00)
[2019-06-28] MEDS ORDERED: CALCIUM CARBONATE CHEW 500MG TAB PO PRN (23:29)
--- NOTE | 2019-06-29 00:48 | PN ---
Date of Progress Note: 06/28/2019 Subjective: Patient was seen and examined. Chart reviewed and case discussed with RN. Patient is d oing well otherwise. No pain other than chronic back pain. No other acute events overnight. Medication List: Reviewed. Physical Examination: Vital Signs: Temperature 97.2, heart rate 69, blood pressure 134/61, respirations 16, O2 97% on 2 L via nasal cannula. General: Awake, alert, oriented x3. Morbidly obese female, not in any acute distress. CV: S1, S2. Regular rate and rhythm. Pulses present. Respiratory: Moving air well bilaterally. No wheezing or stridor. Gastrointestinal: Abdomen is soft, nontender, nondistended. Positive bowel sounds. Extremities: No clubbing, cyanosis, or edema. Neurologic: Nonfocal. Laboratory Data: Lactate is 0.9. TSH 0.998. Procalcitonin 0.47. INR 4.54. H and H 10.5 and 32.4. WBC 9.9. Urine culture pending. Blood culture is also pending at this time. Assessment And Plan: 59-year-old female with: 1.Recurrent urinary tract infection, suspect extended spectrum beta-lactamase. Patient has history of multidrug-resistant bacteria. We will continue on meropenem and await ID and sensitivity for urin e cultures. PICC line has been ordered. May need alf facility placement to complete ant ibiotics. Dr. Ritchie will return on Sunday. We will revert service back to him once he is back in to . 2.Diabetes mellitus type 2, insulin dependent, with hyperglycemia. We will continue with sliding sc [place] insulin and monitor blood glucose levels. 3.Essential hypertension, stable. We will resume home medications. 4.Chronic obstructive pulmonary disease, chronic bronchitis. We will continue with nebulizer treatm ents and inhalers, stable. 5.Obstructive sleep apnea. Patient has been noncompliant with CPAP in the past. 6.Aortic valve replacement, mechanical, on chronic anticoagulation therapy. Currently, INR is supra therapeutic with INR of 4.5. Coumadin has been held. We will recheck INR and resume Coumadin once i n range between 2.5 and 3.5. 7.Hypothyroidism. TSH is normal. Resume Synthroid. 8.Gastroesophageal reflux disease. Continue with medications. No esophagitis. 9.Morbid obesity. Body mass index 43. Counseled. 10.Deep venous thrombosis prophylaxis. Patient already has supratherapeutic INR. Plan: Likely discharge in next 24-48 hours to alf facility for long-term IV antibiotic p lacement. Follow up on urine culture. /MARLON Voice ID: [id number] Report ID: [id number]
[2019-06-29 03:54] VITALS: BMI 43.9
[2019-06-29] MEDS: Meropenem 1,000 MG in NA CHLORIDE 0.9% 100 ML IV SCH ×2 (05:00→16:02)
[2019-06-29] MEDS: LEVOTHYROXINE SOD 0.075 MG TAB PO SCH (05:00)
[2019-06-29 05:36] LABS: Magnesium 2.3 mg/dL (1.8-2.4); Potassium 4.1 mmol/L (3.5-5.1)
[2019-06-29 05:40] LABS: Absolute Lymphocytes (CBC) 0.9 K/uL (0.7-4.9); Basophils % 0.3 % (0-1.3); Hematocrit 28.6 % (36.0-45.0); Lymphocytes % 9.2 % (15.3-44.8); MPV 8.1 fL (7.6-11.3); RBC Red Blood Cell Count 3.82 M/uL (3.86-4.86)
[2019-06-29 05:57] LABS: Protime INR 3.42
[2019-06-29] MEDS: INSULIN -REGULAR HUMAN 50 UNIT/0.5 ML ML SQ SCH ×4 (07:30→21:31)
[2019-06-29] MEDS: FAMOTIDINE 20 MG TAB PO SCH (08:20)
[2019-06-29] MEDS: ASPIRIN EC 81 MG TAB PO SCH (08:20)
[2019-06-29] MEDS: SERTRALINE HCL 50 MG TAB PO SCH (08:20)
[2019-06-29] MEDS: LOSARTAN POTASSIUM 50 MG TABLET PO SCH (08:21)
[2019-06-29] MEDS: POTASSIUM CL SA 10 MEQ TAB PO SCH ×2 (08:21→21:31)
[2019-06-29] MEDS: FUROSEMIDE 40 MG TABLET PO SCH ×2 (08:21→16:00)
[2019-06-29] MEDS: SPIRONOLACTONE 25 MG TABLET PO SCH ×2 (08:22→21:32)
[2019-06-29] MEDS: DOCUSATE NA 100 MG CAP PO SCH ×2 (08:22→21:32)
[2019-06-29] MEDS: ARFORMOTEROL TARTRATE 15 MCG/2 ML VIAL.NEB NEB SCH (08:50)
[2019-06-29] MEDS ORDERED: HOME MED 1 EA UNK (Fluticasone/Vilanterol [Breo Ellipta 100-25 Mcg Inh] 1 PUFF) IH SCH (09:00)
--- NOTE | 2019-06-29 20:32 | PN ---
Date of Progress Note: 06/29/2019 Subjective: Patient is seen and examined. Chart reviewed and case discussed with RN. Patient denie s any acute events overnight. Did state that she is unable to sleep, requesting some medications for insomnia. Medication List: Reviewed. Physical Examination: Vital Signs: Temperature 98, heart rate at 73, blood pressure 106/44, respirations 18, O2 of 98% on 2 L via nasal cannula. General: Awake, alert, oriented x3, morbidly obese female, does not appear to be in any acute distre ss. CV: S1, S2. Regular rate and rhythm. Peripheral pulses are present. Respiratory: Moving air well bilaterally. No wheezing or stridor. Some diminished breath sounds at the bases, however. Gastrointestinal: Abdomen is soft, nontender, nondistended. Positive bowel sounds. Extremities: No clubbing, cyanosis, or edema. Neurologic: Nonfocal. Laboratory Data: Sodium 135, potassium 4.1, chloride 102, CO2 of 26, BUN 31, creatinine 1.01, glucos e 185, calcium 8.8, magnesium 2.3. WBC 9.7, H and H 9.3 and 28.6, platelets 271, neutrophils 74%. B lood cultures show no growth to date. Urine culture 100,000 colony-forming units of 4+ gram-negative rods. Assessment And Plan: A 59-year-old female with: 1.Recurrent acute cystitis without hematuria. We will continue with broad-spectrum IV antibiotics d ue to history of multi-drug resistant cultures. Prelim cultures growing out 4+ gram-negative rods. We will await ID and sensitivity. Patient will likely need care home facility placement for lo ng-term IV antibiotics for minimum of 7 to 14 days. 2.Diabetes mellitus type 2. Insulin requiring with hyperglycemia. We will continue sliding scale i nsulin and monitor blood glucose levels. 3.Essential hypertension, stable. 4.Chronic obstructive pulmonary disease, chronic bronchitis. Continue albuterol and ipratropium as needed, stable. Patient is on supplemental oxygen. 5.Chronic respiratory failure due to chronic obstructive pulmonary disease. 6.Obstructive sleep apnea, counseled to be compliant with CPAP. 7.Aortic valve replacement, mechanical. On chronic anticoagulation therapy. INR is 3.42. We will resume Coumadin. 8.Hypothyroidism. We will continue Synthroid. 9.Gastroesophageal reflux disease without esophagitis. Continue medications. 10.Morbid obesity. BMI of 43. Counseled. 11.Deep venous thrombosis prophylaxis. Patient's INR is now within therapeutic range. We will cont inue Coumadin. Monitor INR. Plan: Transfer service back to Dr. Ritchie in a.Dereck GRANT/MARLON Voice ID: [id number] Report ID: [id number]
[2019-06-29] MEDS ORDERED: WARFARIN SODIUM 5 MG TAB PO SCH (21:00)
[2019-06-29] MEDS: MONTELUKAST 10 MG TAB PO SCH (21:32)
[2019-06-29] MEDS: ATORVASTATIN 20 MG TAB PO SCH (21:32)
[2019-06-29] MEDS: ACETAMINOPHEN 500 MG TAB PO PRN (22:56)
[2019-06-30 04:17] LABS: Absolute Lymphocytes (CBC) 1.2 K/uL (0.7-4.9); Basophils % 0.4 % (0-1.3); Hematocrit 28.4 % (36.0-45.0); Lymphocytes % 13.6 % (15.3-44.8); MPV 7.9 fL (7.6-11.3); RBC Red Blood Cell Count 3.75 M/uL (3.86-4.86)
[2019-06-30 04:23] LABS: Protime INR 2.36
[2019-06-30 04:32] LABS: Magnesium 2.5 mg/dL (1.8-2.4); Potassium 4.3 mmol/L (3.5-5.1)
[2019-06-30] MEDS: Meropenem 1,000 MG in NA CHLORIDE 0.9% 100 ML IV SCH (05:59)
[2019-06-30] MEDS: LEVOTHYROXINE SOD 0.075 MG TAB PO SCH (06:02)
[2019-06-30] MEDS: ARFORMOTEROL TARTRATE 15 MCG/2 ML VIAL.NEB NEB SCH (07:35)
[2019-06-30 08:33] VITALS: O2SAT 94
[2019-06-30] MEDS: INSULIN -REGULAR HUMAN 50 UNIT/0.5 ML ML SQ SCH ×2 (09:13→11:47)
[2019-06-30] MEDS: LOSARTAN POTASSIUM 50 MG TABLET PO SCH (09:14)
[2019-06-30] MEDS: FAMOTIDINE 20 MG TAB PO SCH (09:14)
[2019-06-30] MEDS: ASPIRIN EC 81 MG TAB PO SCH (09:14)
[2019-06-30] MEDS: POTASSIUM CL SA 10 MEQ TAB PO SCH (09:14)
[2019-06-30] MEDS: DOCUSATE NA 100 MG CAP PO SCH (09:14)
[2019-06-30] MEDS: FUROSEMIDE 40 MG TABLET PO SCH (09:15)
[2019-06-30] MEDS: SPIRONOLACTONE 25 MG TABLET PO SCH (09:15)
[2019-06-30] MEDS: SERTRALINE HCL 50 MG TAB PO SCH (09:18)
--- NOTE | 2019-06-30 12:30 | P.DS ---
Admission Date: 06/28/19 Discharge Date: 06/30/19 Primary Care Provider: Dr. Ritchie(We are covering while he is on vacation); Card- Dr. Pereyra Disposition: ROUTINE DISCHARGE Discharge Condition: GOOD Reason for Admission: Fever, back pain Brief History of Present Illness: Patient was admitted for uti. She had a elevated WBC. was admitted by the hospitalists Hospital Course: Patient is doing well. She has some exertional dyspnea. However she is chronically deconditioned. Has some swelling in her legs. The patients blood sugars are elevated. However the patient usually uncontrolled. The patient is at a good level for her. The patient does indeed have ESB ecoli in her urine only. She has sensitivities to bactrim, doxy and nitrofurantin. Will discharge her on doxycycline. We could use amakacin if there is no improvement. will give her a few days of furosemide for the swelling in the legs. Vital Signs/Physical Exam: Temp Pulse Resp BP Pulse Ox 98.0 F 70 16 128/62 94 06/30/19 08:00 06/30/19 09:15 06/30/19 08:00 06/30/19 09:15 06/30/19 08:00 General: Alert, In no apparent distress HEENT: Atraumatic, PERRLA, EOMI Neck: Supple, JVD not distended Respiratory: Clear to auscultation bilaterally, Normal air movement Cardiovascular: Regular rate/rhythm, Normal S1 S2 Gastrointestinal: Normal bowel sounds, No tenderness Musculoskeletal: No tenderness, Swelling (1+ LE) Integumentary: No rashes Neurological: Normal speech, Normal tone, Normal affect Lymphatics: No axilla or inguinal lymphadenopathy Laboratory Data at Discharge: WBC 8.5 K/uL (4.3-10.9) 06/30/19 03:35 Hgb 9.2 g/dL (12.0-15.0) L 06/30/19 03:35 Hct 28.4 % (36.0-45.0) L 06/30/19 03:35 Plt Count 307 K/uL (152-406) 06/30/19 03:35 PT 26.9 SECONDS (9.5-12.5) H 06/30/19 03:35 INR 2.36 06/30/19 03:35 APTT 65.0 SECONDS (24.3-36.9) H 06/27/19 22:25 Sodium 133 mmol/L (136-145) L 06/30/19 03:35 Potassium 4.3 mmol/L (3.5-5.1) 06/30/19 03:35 BUN 38 mg/dL (7-18) H 06/30/19 03:35 Creatinine 1.19 mg/dL (0.55-1.3) 06/30/19 03:35 Glucose 296 mg/dL (74-106) H 06/30/19 03:35 Magnesium 2.5 mg/dL (1.8-2.4) H 06/30/19 03:35 Total Bilirubin 0.6 mg/dL (0.2-1.0) 06/27/19 22:25 AST 20 U/L (15-37) 06/27/19 22:25 ALT 20 U/L (12-78) 06/27/19 22:25 Alkaline Phosphatase 106 U/L (45-117) 06/27/19 22:25 Home Medications: Gabapentin [Neurontin*] 1 cap PO TID PRN 06/04/17 Levothyroxine [Synthroid*] 75 mcg PO DAILY #30 06/05/17 Potassium Chloride 1 tab PO BID #60 06/05/17 Simvastatin 1 pill PO BEDTIME #30 06/05/17 Losartan Potassium 1 tab PO DAILY 10/09/17 Albuterol Sulfate [Proair Hfa] 2 puff IH QID PRN 05/07/19 Docusate Sodium 1 tab PO BID 05/07/19 Empagliflozin [Jardiance] 1 tab PO DAILY 05/07/19 Fluticasone/Vilanterol [Breo Ellipta 100-25 Mcg INH] 1 puff IH DAILY 05/07/19 Insulin Regular, Human [Novolin R] 10 units SQ BEDTIME 05/07/19 Insulin Regular, Human [Novolin R] 10 units SQ DAILY 05/07/19 Montelukast Sodium [Singulair] 1 tab PO BEDTIME 05/07/19 Sertraline [Zoloft*] 1 tab PO DAILY 05/07/19 Spironolactone 1 tab PO BID 05/07/19 Warfarin Sodium [Coumadin] 1 tab PO BEDTIME 05/07/19 Xtrophy Insulin 50 units SQ DAILY 05/07/19 Aspirin [Aspirin EC 81 MG] 1 tab PO DAILY 06/28/19 Ciprofloxacin HCl [Cipro 500 MG Tablet] 1 tab PO BID 06/28/19 Diphenoxylate HCl/Atropine [Diphenoxylate-Atrop 2.5-0.025] 1 tab PO QID Furosemide 1 tab PO BIDWM 06/28/19 Doxycycline Hyclate 100 mg PO BID 5 Days #10 tablet 06/30/19 Furosemide [Lasix*] 20 mg PO DAILY 5 Days #5 tab 06/30/19 New Medications: Doxycycline Hyclate 100 mg PO BID 5 Days #10 tablet Furosemide [Lasix*] 20 mg PO DAILY 5 Days #5 tab Diet: ADA Activity: Ad kleber Followup: Mike Ritchie MD [ACTIVE - CAN ADMIT] - Time spent managing pt's care (in minutes): 30
[2019-06-30 12:46] VITALS: BP 120/56; TEMP 98.5
--- NOTE | 2019-07-01 14:08 | RAD REPORT ---
EXAM DESCRIPTION: CT - Abdomen Pelvis W Contrast - 06/28/2019 2:51 am CLINICAL HISTORY: Back pain COMPARISON: None. TECHNIQUE: CT ABDOMEN PELVIS WITH IV CONTRAST on 06/27/2019 11:55 PM CDT This exam was performed according to our departmental dose-optimization program, which includes autom ated exposure control, adjustment of the mA and/or kV according to patient size and/or use of iterati ve reconstruction technique. FINDINGS: The heart is mildly enlarged with evidence of prior mitral valve replacement. Abdomen: The liver is normal in appearance. There is no biliary dilatation. There are coarse calcific ations of the gallbladder wall. The pancreas and spleen are normal in appearance. The adrenal glands and kidneys are unremarkable. Abdominal aorta is densely calcified as are the major branches. No aneurysm. There is no free air. Th ere is no retroperitoneal adenopathy. Pelvis: There is no bowel obstruction. Urinary bladder is unremarkable. There is no free fluid. Uteru s is normal in size. Appendix is normal. Skeleton: There are no acute osseous findings. No suspicious bony lesions. IMPRESSION: No definite acute inflammatory process. 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 Recommend nonemergent surgical evaluation. Electronically signed by: Darron Chris MD 06/28/2019 1:20 AM CDT Due to temporary technical issues with the PACS/Fluency reporting system, reports are being signed by the in house radiologist as a courtesy to ensure prompt reporting. The interpreting radiologist is f ully responsible for the content of the report.
== END 2019-06-30 15:30 | disposition home or self-care (01) | DRG 690 ==
LOC: ER 20:38 → ERHOLD 06-28 00:28 → 4TH 06-28 00:48
PROVIDERS: ADMIT Family Medicine; ATTEND Family Medicine
DX: N30.00 Acute cystitis without hematuria (principal); Z16.12 Extended spectrum beta lactamase (ESBL) resistance; J96.10 Chronic respiratory failure, unspecified whether with hypoxia or hypercapnia; Z68.42 Body mass index [BMI] 45.0-49.9, adult; B96.20 Unspecified Escherichia coli [E. coli] as the cause of diseases classified elsewhere; I10 Essential (primary) hypertension; E11.65 Type 2 diabetes mellitus with hyperglycemia; J44.9 Chronic obstructive pulmonary disease, unspecified; G47.33 Obstructive sleep apnea (adult) (pediatric); E03.9 Hypothyroidism, unspecified; K21.9 Gastro-esophageal reflux disease without esophagitis; E66.01 Morbid (severe) obesity due to excess calories; Z95.2 Presence of prosthetic heart valve; Z23 Encounter for immunization
CPT/HCPCS: 36415; 74177; 80048; 80076; 81003; 81015; 82962; 83605; 83735; 83880; 84145; 84439; 84443; 84484; 85025; 85610; 85730; 87040; 87077; 87086; 87088; 87186; 90471; 93005; 94640; 96361; 96365; 96375; 97116; 97161; 97530; 99285; J2185; J2405; J7030; J7605; Q2035; Q9967

== ENCOUNTER 2020-03-12 12:07 | Inpatient (IN) | payer OTHER ==
--- OUTSIDE RECORDS SUMMARY | 2020-03-12 12:13 | XMS REPORT | Continuity of Care Document ---
:1960 Author Organization [facility] t Address [address] [place] [address] Care Team Providers Name Role Phone Cate Varner PA-C Attending Clinician Irma Suarez Attending Clinician Doctor Unassigned, Name Attending Clinician Unavailable Payers Payer Name Policy Type Policy Number Effective Date Expiration Date S ource Problems This patient has no known problems. Allergies, Adverse Reactions, Alerts Allergy Allergy Status Severity Reaction(s) Onset Inactive Treating Comm ents Source Name Type Date Date Clinician No Known DA Active U 2017-09 [facility]12 [place] 00:[facility]: [address] No Known DA Active U 2017-09 [facility] 0-26 [facility] 00:00: [address] Medications This patient has no known medications. Procedures This patient has no known procedures. Encounters Start End Encounter Admission Attending Care Care Encounter Source Date/Time Date/Time Type Type Clinicians Facility Department ID 2019-12-31 2019-12-31 Telephone VIPIN Varner [id number] 00:00:00 00:00:00 Cate Brito [id number] Jennifer [id number] [facility] [id number] [address] 2019-05-15 2019-05-15 VIPIN Araujo [id number] 00:00:00 00:00:00 Irma [facility] [id number] [place] [id number] [facility] [phone] Primary & 059 [facility] 2019-04-21 2019-04-21 Orders Doctor THAD [id number] 00:00:00 00:00:00 Only Unassigned, MATI [id number] [place] [id number] [id number] 2015-01-14 2015-01-14 Orders Doctor THAD [id number] 00:00:00 00:00:00 Only Unassigned, MATI [id number] [place] [id number] [phone] [id number] Results Test Description Test Time Test Comments Results Result [facility] e Comments HEART VALVE 2018-09-02 14:57:00 ----RUN DATE: 09/02/18 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 MITRAL VALVE, NOS - MITRAL VAVLE LEAFLETS CLINICAL HISTORY SEVERAL MITRAL STENOSIS CPT CODES CPT CODE(S): 68417 , 35191 , , , , , FINAL DIAGNOSIS [...] also identified. /cm CONTINUED ON NEXT PAGE ----RUN DATE: 09/02/18 [facility] - Lab PAGE 2 RUN TIME: 1456 Specimen Inquiry RUN USER: INTERFACE ----SPEC #: [id number] PATIENT: ZINA WHYTE #[id number] (Continued) ---- Signed SIGNATURE ON FILE Ward[facility]re 09/02/18 1457 ---- END OF REPORT
[2020-03-12 12:55] LABS: Absolute Lymphocytes (CBC) 0.6 K/uL (0.7-4.9); Basophils % 0.2 % (0-1.3); Hematocrit 29.9 % (36.0-45.0); Lymphocytes % 3.1 % (15.3-44.8); MPV 8.1 fL (7.6-11.3)
[2020-03-12 13:18] LABS: ALT/SGPT 15 U/L (12-78); AST/SGOT 13 U/L (15-37); Albumin 2.9 g/dL (3.4-5.0); Alkaline Phosphatase 107 U/L (45-117); Amylase 36 U/L (25-115); BUN Blood Urea Nitrogen 39 mg/dL (7-18); Bicarbonate 20 mmol/L (21-32); Bilirubin Direct 0.2 mg/dL (0-0.2); Bilirubin Total 0.5 mg/dL (0.2-1.0); Glucose Level 285 mg/dL (74-106); Lipase 130 U/L (73-393); Potassium 4.4 mmol/L (3.5-5.1); Protein, Total 7.5 g/dL (6.4-8.2); Sodium Level 134 mmol/L (136-145); Troponin (Emerg Dept Use Only) < 0.02 ng/mL (0.0-0.045)
[2020-03-12] MEDS ORDERED: NA CHLORIDE 0.9% 1,000 ML ONE (13:45)
[2020-03-12 14:07] LABS: Urine Blood 2+ (NEG); Urine Glucose 2+ (NEG); Urine Protein 1+ (NEG)
[2020-03-12] MEDS ORDERED: CEFTRIAXONE/SWI 1gm 1 GM/10 ML SYR ONE (14:22)
[2020-03-12 14:28] LABS: Urine Bacteria >50 /HPF (<20); Urine Culture Reflex Order REFLEXED; Urine RBC <5 /HPF (NONE SEEN)
--- NOTE | 2020-03-12 14:28 | EDPHYS ---
Physician Documentation [facility] Name: Tessie Michaud Age: 59 yrs Sex: Female : 1960 Arrival Date: 03/12/2020 Time: 12:10 Bed 7 Private MD: ED Physician Dg Lyn HPI: 03/12 15:39 This 59 yrs old Female presents to ER via EMS with complaints of Fall Injury, kb Urinary Problem. 15:39 The patient presents with urinary symptoms, dysuria, frequency. Onset: The kb symptoms/episode began/occurred 1 week(s) ago. Modifying factors: The symptoms are alleviated by nothing, the symptoms are aggravated by nothing. Associated signs and symptoms: Pertinent positives: dysuria, fever, urinary frequency. Severity of symptoms: At their worst the symptoms were moderate, in the emergency department the symptoms are unchanged. The patient has not experienced similar symptoms in the past. The patient has not recently seen a physician. Pt reports dysuria, frequency, fever and weakness for a week. States the weakness has gotten worse today. States she fell out of bed and was unable to get up due to weakness so she called 911. Historical: - Allergies: 12:19 No Known Allergies; ph - Home Meds: 12:19 Albuterol Inhl [Active]; benzonatate Oral [Active]; Coumadin Oral [Active]; ph esomeprazole magnesium Oral [Active]; Furosemide Oral [Active]; gabapentin Oral [Active]; Glimepiride Oral [Active]; insulin regular human inhalation [Active]; Levothroid Oral [Active]; losartan Oral [Active]; mometasone inhalation [Active]; montelukast Oral [Active]; Naproxen Oral [Active]; pioglitazone Oral [Active]; potassium chloride (bulk) miscellaneous [Active]; Simvastatin Oral [Active]; - PMHx: 12:19 CHF; Diabetes - IDDM; Home O2 at 2L NC as needed; Hyperlipidemia; Hypertension; Thyroid ph problem; - PSHx: 12:19 heart valve replacement; ph - Immunization history:: Adult Immunizations unknown. - Social history:: Smoking status: Patient denies any tobacco usage or history of. ROS: 15:37 Neck: Negative for injury, pain, and swelling, Cardiovascular: Negative for chest pain, kb palpitations, and edema, Respiratory: Negative for shortness of breath, cough, wheezing, and pleuritic chest pain, Abdomen/GI: Negative for abdominal pain, nausea, vomiting, diarrhea, and constipation, Back: Negative for injury and pain, MS/Extremity: Negative for injury and deformity, Skin: Negative for injury, rash, and discoloration. 15:37 Constitutional: Positive for chills, fever, malaise, Negative for body aches, fatigue, poor PO intake, weight loss. 15:37 : Positive for urinary symptoms, urinary frequency, small amounts, burning with urination. 15:37 Neuro: Positive for weakness. Exam: 15:36 Constitutional: This is a well developed, well nourished patient who is awake, alert, kb and in no acute distress. Head/Face: Normocephalic, atraumatic. Neck: Trachea midline, no thyromegaly or masses palpated, and no cervical lymphadenopathy. Supple, full range of motion without nuchal rigidity, or vertebral point tenderness. No Meningismus. Chest/axilla: Normal chest wall appearance and motion. Nontender with no deformity. No lesions are appreciated. Cardiovascular: Regular rate and rhythm with a normal S1 and S2. No gallops, murmurs, or rubs. Normal PMI, no JVD. No pulse deficits. Respiratory: Lungs have equal breath sounds bilaterally, clear to auscultation and percussion. No rales, rhonchi or wheezes noted. No increased work of breathing, no retractions or nasal flaring. Abdomen/GI: Soft, non-tender, with normal bowel sounds. No distension or tympany. No guarding or rebound. No evidence of tenderness throughout. Skin: Warm, dry with normal turgor. Normal color with no rashes, no lesions, and no evidence of cellulitis. MS/ Extremity: Pulses equal, no cyanosis. Neurovascular intact. Full, normal range of motion. Neuro: Awake and alert, GCS 15, oriented to person, place, time, and situation. Cranial nerves II-XII grossly intact. Motor strength 5/5 in all extremities. Sensory grossly intact. Cerebellar exam normal. Normal gait. Vital Signs: 12:11 BP 103 / 46; Pulse 81; Resp 18; Temp 99.5; Pulse Ox 91% on R/A; Weight 129.27 kg; ph Height 5 ft. 2 in. (157.48 cm); 13:00 BP 106 / 58; Pulse 87; Resp 18; Pulse Ox 97% on 2 lpm NC; ph 14:26 BP 104 / 60; Pulse 90; Resp 18; Pulse Ox 99% on 2 lpm NC; ph 15:40 BP 103 / 76; Pulse 92; Resp 18; Temp 99.3; Pulse Ox 98% on 2 lpm NC; ph 12:11 Body Mass Index 52.13 (129.27 kg, 157.48 cm) ph MDM: 12:18 Patient medically screened. kb 15:35 Data reviewed: vital signs, nurses notes. Data interpreted: Pulse oximetry: on room air kb is 99 %. Interpretation: normal. Counseling: I had a detailed discussion with the patient and/or guardian regarding: the historical points, exam findings, and any diagnostic results supporting the discharge/admit diagnosis, lab results, the need for further work-up and treatment in the hospital. 15:37 ED course: Pt has history of urosepsis and failed outpatient therapy with previous kb UTIs. Will admit for IV antibiotics and observation. . 03/12 12:27 Order name: Amylase, Serum; Complete Time: 13:20 kb 03/12 12:27 Order name: Basic Metabolic Panel; Complete Time: 13:20 kb 03/12 12:27 Order name: Blood Culture Adult (2) kb 03/12 12:27 Order name: CBC with Diff; Complete Time: 13:15 kb 03/12 12:27 Order name: Lactate; Complete Time: 13:15 kb 03/12 12:27 Order name: LFT's; Complete Time: 13:20 kb 03/12 12:27 Order name: Lipase; Complete Time: 13:20 kb 03/12 12:27 Order name: Procalcitonin; Complete Time: 13:28 kb 03/12 12:27 Order name: Troponin (emerg Dept Use Only); Complete Time: 13:20 kb 03/12 12:27 Order name: Urine Microscopic Only; Complete Time: 14:29 kb 03/12 13:53 Order name: Urine Dipstick--Ancillary (enter results); Complete Time: 14:08 bd 03/12 14:31 Order name: Urine Culture EDMS 03/12 14:47 Order name: PT-INR; Complete Time: 15:39 la1 03/12 12:27 Order name: Cardiac monitoring; Complete Time: 12:47 kb 03/12 12:27 Order name: EKG - Nurse/Tech; Complete Time: 12:47 kb 03/12 12:27 Order name: IV Saline Lock - Large Bore; Complete Time: 12:46 kb 03/12 12:27 Order name: Labs collected and sent; Complete Time: 12:46 kb 03/12 12:27 Order name: O2 Per Protocol; Complete Time: 12:46 kb 03/12 12:27 Order name: O2 Sat Monitoring; Complete Time: 12:46 kb Administered Medications: 13:53 Drug: NS 0.9% 1000 ml Route: IV; Rate: 1000 ml; Site: right forearm; ph 16:23 Follow up: Response: No adverse reaction; IV Status: Completed infusion; IV Intake: ph 1000ml 14:42 Drug: Rocephin 1 grams Route: IV; Rate: calculated rate; Site: right forearm; ph 15:00 Follow up: Response: No adverse reaction; IV Status: Completed infusion ph 15:58 Drug: Tylenol 1000 mg Route: PO; ph Disposition: 03/13 08:34 Co-signature as Attending Physician, Dg Lyn MD I agree with the assessment and kdr plan of care. Disposition: 03/12/20 14:28 Hospitalization ordered by Jaron Gonzalez for Observation. Preliminary diagnosis are Urinary tract infection, site not specified, Elevated white blood cell count. - Bed requested for Telemetry/MedSurg (observation). - Status is Observation. ph - Condition is Stable. - Problem is new. - Symptoms are unchanged. Signatures: Dispatcher [employer] EDMS Mable Samano FNP-C FNP-Tracie Yates Kevin, MD MD [facility] Jaron Gonzalez FNP-C FNP-Cla1 Fanny Das RN RN ph Corrections: (The following items were deleted from the chart) 03/12 15:45 14:28 Hospitalization Ordered by Jaron JANG for Observation. Preliminary bd diagnosis is Urinary tract infection, site not specified; Elevated white blood cell count. Bed requested for Telemetry/MedSurg (observation). Status is Observation. Condition is Stable. Problem is new. Symptoms are unchanged. kb 16:50 15:45 03/12/2020 14:28 Hospitalization Ordered by Jaron JANG for Observation. ph Preliminary diagnosis is Urinary tract infection, site not specified; Elevated white blood cell count. Bed requested for Telemetry/MedSurg (observation). Status is Observation. Condition is Stable. Problem is new. Symptoms are unchanged. bd
--- NOTE | 2020-03-12 14:28 | ER ---
Nurse's Notes [facility] Name: Tessie Michaud Age: 59 yrs Sex: Female : 1960 Arrival Date: 03/12/2020 Time: 12:10 Bed 7 Private MD: Diagnosis: Urinary tract infection, site not specified;Elevated white blood cell count Presentation: 03/12 12:11 Chief complaint: EMS states: Pt c/o generalized weakness and fatigue since yesterday, ph fever, burning w/ urination, N/V, fell to today because she felt weak, c/o pain to R hip, was able to ambulate to stretcher w/ assistance. Coronavirus screen: Patient denies a cough. Patient denies shortness of breath or difficulty breathing. Patient reports a measured and/or subjective temperature greater than 100.4F. Patient denies travel on a cruise ship or to a country the [facility] currently lists as an affected area. Patient denies contact with known and/or suspected case of COVID-19. Ebola Screen: No symptoms or risks identified at this time. Initial Sepsis Screen: Does the patient meet any 2 criteria? Mean Arterial Pressure (MAP) < 65. No. Patient's initial sepsis screen is negative. Does the patient have a suspected source of infection? Yes:. Risk Assessment: Do you want to hurt yourself or someone else? Patient reports no desire to harm self or others. Onset of symptoms was March 12, 2020. 12:11 Method Of Arrival: EMS: [facility] ph 12:11 Acuity: KATIA 3 ph Historical: - Allergies: 12:19 No Known Allergies; ph - Home Meds: 12:19 Albuterol Inhl [Active]; benzonatate Oral [Active]; Coumadin Oral [Active]; ph esomeprazole magnesium Oral [Active]; Furosemide Oral [Active]; gabapentin Oral [Active]; Glimepiride Oral [Active]; insulin regular human inhalation [Active]; Levothroid Oral [Active]; losartan Oral [Active]; mometasone inhalation [Active]; montelukast Oral [Active]; Naproxen Oral [Active]; pioglitazone Oral [Active]; potassium chloride (bulk) miscellaneous [Active]; Simvastatin Oral [Active]; - PMHx: 12:19 CHF; Diabetes - IDDM; Home O2 at 2L NC as needed; Hyperlipidemia; Hypertension; Thyroid ph problem; - PSHx: 12:19 heart valve replacement; ph - Immunization history:: Adult Immunizations unknown. - Social history:: Smoking status: Patient denies any tobacco usage or history of. Screenin:31 Abuse screen: Denies threats or abuse. Denies injuries from another. Nutritional ph screening: No deficits noted. Tuberculosis screening: No symptoms or risk factors identified. Fall Risk None identified. Assessment: 12:30 General: Appears in no apparent distress. uncomfortable, ill, obese, well groomed, ph Behavior is calm, cooperative, appropriate for age, Reports chills for fever for > 3 days. Pain: Complains of pain in right hip. Neuro: Level of Consciousness is awake, alert, obeys commands, Oriented to person, place, time, situation. Cardiovascular: Capillary refill < 3 seconds in bilateral fingers Patient's skin is warm and dry. Respiratory: Airway is patent Respiratory effort is even, unlabored, Respiratory pattern is regular, symmetrical. GI: Reports nausea, vomiting, Patient currently denies abdominal pain, diarrhea. : Reports burning with urination, urinary frequency. Derm: Skin is intact, is healthy with good turgor, Skin is pink, warm \T\ dry. Musculoskeletal: Circulation, motion, and sensation intact. Range of motion: intact in all extremities. 13:30 Reassessment: Patient appears in no apparent distress at this time. Patient and/or ph family updated on plan of care and expected duration. Pain level reassessed. Patient is alert, oriented x 3, equal unlabored respirations, skin warm/dry/pink. 14:30 Reassessment: Patient appears in no apparent distress at this time. Patient and/or ph family updated on plan of care and expected duration. Pain level reassessed. Patient is alert, oriented x 3, equal unlabored respirations, skin warm/dry/pink. Hospitalist at bedside to speak w/ pt. 16:07 Reassessment: Patient appears in no apparent distress at this time. Patient and/or ph family updated on plan of care and expected duration. Pain level reassessed. Patient is alert, oriented x 3, equal unlabored respirations, skin warm/dry/pink. Attempted to noemy report to second floor, receiving nurse unavailable. Vital Signs: 12:11 BP 103 / 46; Pulse 81; Resp 18; Temp 99.5; Pulse Ox 91% on R/A; Weight 129.27 kg; ph Height 5 ft. 2 in. (157.48 cm); 13:00 BP 106 / 58; Pulse 87; Resp 18; Pulse Ox 97% on 2 lpm NC; ph 14:26 BP 104 / 60; Pulse 90; Resp 18; Pulse Ox 99% on 2 lpm NC; ph 15:40 BP 103 / 76; Pulse 92; Resp 18; Temp 99.3; Pulse Ox 98% on 2 lpm NC; ph 12:11 Body Mass Index 52.13 (129.27 kg, 157.48 cm) ph ED Course: 12:10 Patient arrived in ED. ph 12:16 Triage completed. ph 12:18 [facility]able [facility]C [facility] kb 12:18 Dg Lyn MD is Attending Physician. kb 12:40 Initial lab(s) drawn, by wi, sent to lab. First set of blood cultures drawn by me. dh3 Inserted saline lock: 20 gauge in right forearm, using aseptic technique. Blood collected. 12:42 Second set of blood cultures drawn by me. dh3 12:45 Fanny Das, TODD is Primary Nurse. ph 12:51 EKG done, by ED staff, reviewed by Mable JANG. dh3 14:27 Jaron Gonzalez FNP-C is Hospitalizing Provider. kb 14:31 Arm band placed on Patient placed in an exam room. ph 14:31 Patient has correct armband on for positive identification. Bed in low position. Call ph light in reach. Side rails up X2. manager monitoring on. Pulse ox on. NIBP on. Door closed. Noise minimized. Warm blanket given. Head of bed elevated. 15:26 PT-INR Sent. dh3 16:30 No provider procedures requiring assistance completed. Patient admitted, IV remains in ph place. Administered Medications: 13:53 Drug: NS 0.9% 1000 ml Route: IV; Rate: 1000 ml; Site: right forearm; ph 16:23 Follow up: Response: No adverse reaction; IV Status: Completed infusion; IV Intake: ph 1000ml 14:42 Drug: Rocephin 1 grams Route: IV; Rate: calculated rate; Site: right forearm; ph 15:00 Follow up: Response: No adverse reaction; IV Status: Completed infusion ph 15:58 Drug: Tylenol 1000 mg Route: PO; ph Intake: 16:23 IV: 1000ml; Total: 1000ml. ph Outcome: 14:28 Decision to Hospitalize by Provider. kb 16:50 Patient left the ED. ph 16:50 Admitted to Tele accompanied by tech, via stretcher, with oxygen, with chart. ph 16:50 Condition: stable 16:50 Instructed on the need for admit. Signatures: Mable Samano, LAINE GARCIA-Fanny Hayes, RN RN Bette Ho [facility]
[2020-03-12 14:29] LABS: Urine Yeast MANY (NONE SEEN)
--- NOTE | 2020-03-12 15:01 | P.HP ---
Certification for Inpatient Patient admitted to: Observation With expected LOS: <2 Midnights Patient will require the following post-hospital care: None Practitioner: I am a practitioner with admitting privileges, knowledge of patient current condition, hospital course, and medical plan of care. Services: Services provided to patient in accordance with Admission requirements found in Title 42 Section 412.3 of the Code of Federal Regulations <Jaron Gonzalez - Last Filed: 03/12/20 14:56> Patient admitted to: Inpatient With expected LOS: >2 Midnights Patient will require the following post-hospital care: Other (Anticipate the need for IV antibiotic therapy for UTI) Practitioner: I am a practitioner with admitting privileges, knowledge of patient current condition, hospital course, and medical plan of care. Services: Services provided to patient in accordance with Admission requirements found in Title 42 Section 412.3 of the Code of Federal Regulations <Emanuel Ansari - Last Filed: 03/12/20 16:07> Patient History Date of Service: 03/12/20 Primary Care Provider: Dr. Porter Reason for admission: Urinary tract infection History of Present Illness: 59-year-old female with medical history of diabetes mellitus type 2, chronic kidney disease, congestive heart failure, recurrent urinary tract infections, hypothyroidism, hyperlipidemia, obesity, aortic valve replacement presents emergency department with a 1 week history of dysuria and urinary frequency. Patient reports that she has frequent urinary tract infections which she attributes to the diabetic medication farxiga. Patient reports that she has had to be admitted for the urinary tract infections twice in the past. During her evaluation in the emergency department patient was found to have an elevated white blood cell count at about 18 and an elevated pro calcitonin at 1.86. Lactate was negative. Patient's renal function was also diminished from prior visits. Patient's vital signs are stable. The blood pressure is on the low side. During 1 of her previous admissions patient's urine culture grew out ESBL. ED provider wishes to hospitalize patient for further evaluation m anagement. When I saw the patient in the emergency department she appeared uncomfortable. Patient does not appear septic at this time. Lactic acid is negative. Patient be admitted for further evaluation management. Will begin with Rocephin and follow urine cultures and patient clinical status. Blood cultures also obtained in the emergency department. Will continue to follow. - Past Medical/Surgical History Has patient received pneumonia vaccine in the past: No Diabetic: Yes -: Hypothyroidism -: Diabetes mellitus type 2, insulin dependent -: COPD -: Hypertension -: Obstructive sleep apnea noncompliant -: UTERINE CA (BARIUM IMPLANTS) -: CHF, diastolic -: Hyperlipidemia -: Obesity -: Recurrent UTI -: Bilateral cataract surgery -: Hemorrhoidectomy -: Aortic valve replacement -: CABG Psychosocial/ Personal History: Patient is single. She lives at home. - Family History Mother -: Diabetes, Other (see notes) Notes: CHF Father -: Diabetes, Cancer Notes: Prostate Cancer Brother -: Diabetes Sister -: Diabetes Notes: Third and sixth nerve palsy - Social History Smoking Status: Former smoker Alcohol use: Yes CD- Drugs: No Caffeine use: No Place of Residence: Home <Jaron Gonzalez - Last Filed: 03/12/20 14:56> Date of Service: 03/12/20 History of Present Illness: Case discussed at length with nurse practitioner. Agree with evaluation and plan of care. Prior urine culture positive for ESBL. Suspect ESBL again. Will change antibiotic to meropenem. Await urine culture. Patient will likely require IV antibiotic therapy at discharge. If positive for ESBL will need to consider multiple options including skilled placement for IV antibiotic therapy versus home antibiotics. Home medications list reviewed: Yes <Emanuel Ansari - Last Filed: 03/12/20 16:07> Allergies No Known Allergies Allergy (Verified 05/07/19 04:19) Home Medications: Albuterol Sulfate [Albuterol Sulfate 0.083% Neb Soln] 1 amp IN TID 01/27/20 Albuterol Sulfate [Proair Hfa] 2 puff PO QID PRN 01/27/20 Aspirin [Adult Low Dose Aspirin EC] 81 mg PO DAILY 01/27/20 Beclomethasone Dipropionate [Qnasl] 2 sprays IN DAILY 01/27/20 Ciprofloxacin HCl [Cipro 250 MG Tablet*] 250 mg PO BID 3 Days #6 tab 01/27/20 Empagliflozin [Jardiance] 10 mg PO DAILY 01/27/20 Fluconazole 100 mg PO DAILY PRN 01/27/20 Fluconazole [Diflucan] 200 mg PO DAILY #5 tablet 01/27/20 Fluticasone/Vilanterol [Breo Ellipta 100-25 Mcg INH] 1 each IH DAILY 01/27/20 Furosemide [Lasix] 40 mg PO BIDL 01/27/20 Gabapentin 300 mg PO DAILY 01/27/20 Insulin -Regular Human [Novolin -R*] 20 unit SQ BID 01/27/20 Insulin 70/30 NPH/Reg Human [Novolin 70/30*] 100 units SQ DAILY 01/27/20 Insulin Degludec/Liraglutide [Xultophy 100 Unit-3.6MG/ml Pen] 50 unit SQ DAILY 01/27/20 Levothyroxine Sodium 75 mcg PO 0600 01/27/20 Metoprolol Succinate 25 mg PO DAILY 01/27/20 Montelukast Sodium [Singulair] 10 mg PO DAILY 01/27/20 Potassium Chloride [Micro-K] 10 meq PO BID 01/27/20 Sertraline HCl 50 mg PO DAILY 01/27/20 Simvastatin 40 mg PO DAILY AT SUPPER 01/27/20 Spironolactone 25 mg PO DAILY 01/27/20 Warfarin Sodium 2 mg PO DAILY 01/27/20 Warfarin Sodium [Coumadin] 5 mg PO DAILY 01/27/20 Review of Systems General: Fever, Chills, Weakness, Malaise Eyes: Unremarkable ENT: Unremarkable Respiratory: Unremarkable Cardiovascular: As per HPI Gastrointestinal: Unremarkable Genitourinary: Dysuria, Frequency, Urgency Musculoskeletal: Unremarkable Integumentary: Unremarkable Neurological: Unremarkable Lymphatics: Unremarkable <Jaron Gonzalez - Last Filed: 03/12/20 14:56> Physical Examination - Physical Exam General: Alert, In no apparent distress, Oriented x3 HEENT: Atraumatic, Normocephalic Neck: Supple Respiratory: Clear to auscultation bilaterally, Diminished (Bilaterally) Cardiovascular: Normal pulses, Regular rate/rhythm, Normal S1 S2, Edema (Mild nonpitting lower extremity edema) Capillary refill: <2 Seconds Gastrointestinal: Normal bowel sounds, Soft and benign, Other (Obesity) Musculoskeletal: No erythema, No tenderness, No warmth Integumentary: No erythema, No warmth, No cyanosis Neurological: Normal speech, Normal tone, Normal affect - Studies Laboratory Data (last 24 hrs) 03/12/20 12:40: WBC 18.2 H, Hgb 9.5 L, Hct 29.9 L, Plt Count 238 03/12/20 12:40: Sodium 134 L, Potassium 4.4, BUN 39 H, Creatinine 1.74 H, Glucose 285 H, Total Bilirubin 0.5, AST 13 L, ALT 15, Alkaline Phosphatase 107, Amylase 36, Lipase 130 <Jaron Gonzalez - Last Filed: 03/12/20 14:56> - Studies Laboratory Data (last 24 hrs) 03/12/20 12:40: WBC 18.2 H, Hgb 9.5 L, Hct 29.9 L, Plt Count 238 03/12/20 12:40: Sodium 134 L, Potassium 4.4, BUN 39 H, Creatinine 1.74 H, Glucose 285 H, Total Bilirubin 0.5, AST 13 L, ALT 15, Alkaline Phosphatase 107, Amylase 36, Lipase 130 <Emanuel Ansari - Last Filed: 03/12/20 16:07> Assessment and Plan - Plan Assessment Recurrent Urinary tract infection with history of ESBL complicated with DMII and Farxiga use Acute on chronic kidney disease stage III Diabetes mellitus type 2 on long-term insulin therapy Chronic diastolic congestive heart failure with porcine aortic valve replacement on chronic anticoagulation therapy Hypertension COPD Obstructive sleep apnea Hypothyroidism Obesity Plan Recurrent Urinary tract infection with history of ESBL complicated with DMII and Farxiga use: Blood in urine cultures obtained in the emergency department will continue to follow results. Initiated therapy with Rocephin IV daily. Will recheck CBC with the morning labs. Anticipate clinical improvement next 24-48 hr. DVT prophylaxis with patient's oral anticoagulant Coumadin 5 mg once daily. Patient with recurrent urine tract infections with history of ESBL in the urine, will continue to follow cultures to determine antibiotic needs. Acute on chronic kidney disease stage III: Nephrology has been consulted on this case. Creatinine and GFR are worse when compared to previous visits. Patient does not see Nephrology on an outpatient basis. Will hold off on IV fluids as patient has history of congestive heart failure. Appreciate further input from nephrology. Diabetes mellitus type 2 on long-term insulin therapy: Will provide a.c. HS Accu-Cheks and sliding scale insulin therapy. Will evaluate patient's home medications and continue them as appropriate. Chronic diastolic congestive heart failure with porcine aortic valve replacement on chronic anticoagulation therapy: Will continue with patient's oral anticoagulant Coumadin 5 mg once daily. INR has been ordered, Coumadin will be adjusted as necessary. Will obtain and continue patient's home medication for congestive heart failure. Patient currently not having any shortness of breath or difficulty breathing. Hypertension: Will obtain and continue patient's home medications, will adjust as needed in regards to blood pressure and renal function. COPD: will provide patient with albuterol inhaler as needed during this hospitalization. Will obtain and continue patient's home medications. Obstructive sleep apnea: Will monitor patient during this hospitalization, will supply patient with CPAP as needed for obstructive sleep apnea. Hypothyroidism: Will obtain and continue patient's home medication, will check thyroid levels in the morning. Obesity: Dietary changes recommended to patient, encourage increase in daily activities exercise. - Advance Directives Does patient have a Living Will: No Does patient have a Durable POA for Healthcare: No - Code Status/Comfort Care Code Status Assessed: Yes (Patient is full code) Critical Care: No Time Spent Managing Pts Care (In Minutes): 55 <Jaron Gonzalez - Last Filed: 03/12/20 14:56> - Plan Agree with plan of care with nurse practitioner. Care discussed in detail. Patient likely with recurrent UTI with ESBL as the patient has a history of ESBL. Will recommend to discontinue for Farxiga. If positive for ESBL patient will require IV antibiotic therapy. Will need to consider options of skilled placement verses IV antibiotic therapy at home. Await recommendations from nephrology. Patient on anti coagulation therapy. Continue medication. Will monitor and adjust appropriately. Will monitor closely. Discharge Plan: Home Plan to discharge in: Greater than 2 days <Emanuel Ansari - Last Filed: 03/12/20 16:07>
[2020-03-12 15:34] LABS: Protime INR 2.19
[2020-03-12] MEDS ORDERED: ACETAMINOPHEN 500 MG TAB ONE (15:52)
[2020-03-12] MEDS ORDERED: ONDANSETRON 4 MG/2 ML VIAL IV PRN (17:26)
[2020-03-12] MEDS: INSULIN -REGULAR HUMAN 50 UNIT/0.5 ML ML SQ SCH ×2 (18:23→21:40)
[2020-03-12] MEDS: WARFARIN SODIUM 5 MG TAB PO SCH (18:23)
[2020-03-12] MEDS ORDERED: NA CHLORIDE 0.9% 250 ML IV ONE (18:31)
[2020-03-12] MEDS ORDERED: ACETAMINOPHEN 500 MG TAB PO PRN (18:32)
[2020-03-12] MEDS ORDERED: Meropenem 1000 MG/VIAL IV SCH (21:00)
[2020-03-12] MEDS: Meropenem 1,000 MG in NA CHLORIDE 0.9% 100 ML IV SCH (21:00)
--- NOTE | 2020-03-12 22:58 | P.CNS ---
Date of Consult: 03/12/20 Reason for Consult: ELIE Requesting Physician: Emanuel Ansari Primary Care Provider: Dr. Rowe Chief Complaint: Urinary tract infection History of Present Illness: 59 yo HF CKD, HTN presented to the ER with 24-48 hours of moderate, progressive malaise with associated dysuria in the setting of a recurrent UTI. No NSAIDs. 59-year-old female with medical history of diabetes mellitus type 2, chronic kidney disease, congestive heart failure, recurrent urinary tract infections, hypothyroidism, hyperlipidemia, obesity, aortic valve replacement presents emergency department with a 1 week history of dysuria and urinary frequency. Patient reports that she has frequent urinary tract infections which she attributes to the diabetic medication farxiga. Patient reports that she has had to be admitted for the urinary tract infections twice in the past. During her evaluation in the emergency department patient was found to have an elevated white blood cell count at about 18 and an elevated pro calcitonin at 1.86. Lactate was negative. Patient's renal function was also diminished from prior visits. Patient's vital signs are stable. The blood pressure is on the low side. During 1 of her previous admissions patient's urine culture grew out ESBL. ED provider wishes to hospitalize patient for further evaluation management. 15:39 This 59 yrs old Female presents to ER via EMS with complaints of Fall Injury, kb Urinary Problem. 15:39 The patient presents with urinary symptoms, dysuria, frequency. Onset: The kb symptoms/episode began/occurred 1 week(s) ago. Modifying factors: The symptoms are alleviated by nothing, the symptoms are aggravated by nothing. Associated signs and symptoms: Pertinent positives: dysuria, fever, urinary frequency. Severity of symptoms: At their worst the symptoms were moderate, in the emergency department the symptoms are unchanged. The patient has not experienced similar symptoms in the past. The patient has not recently seen a physician. Pt reports dysuria, frequency, fever and weakness for a week. States the weakness has gotten worse today. States she fell out of bed and was unable to get up due to weakness so she called 911. Allergies No Known Allergies Allergy (Verified 05/07/19 04:19) Home medications list reviewed: Yes Home Medications: Albuterol Sulfate [Albuterol Sulfate 0.083% Neb Soln] 1 amp IN TID 01/27/20 Aspirin [Adult Low Dose Aspirin EC] 81 mg PO DAILY 01/27/20 Beclomethasone Dipropionate [Qnasl] 2 sprays IN DAILY 01/27/20 Empagliflozin [Jardiance] 10 mg PO DAILY 01/27/20 Fluconazole 100 mg PO DAILY PRN 01/27/20 Furosemide [Lasix] 40 mg PO BIDL 01/27/20 Gabapentin 300 mg PO DAILY 01/27/20 Insulin -Regular Human [Novolin -R*] 20 unit SQ BID 01/27/20 Insulin 70/30 NPH/Reg Human [Novolin 70/30*] 100 units SQ DAILY 01/27/20 Levothyroxine Sodium 75 mcg PO 0600 01/27/20 Metoprolol Succinate 25 mg PO DAILY 01/27/20 Montelukast Sodium [Singulair] 10 mg PO DAILY 01/27/20 Potassium Chloride [Micro-K] 10 meq PO BID 01/27/20 Sertraline HCl 50 mg PO DAILY 01/27/20 Simvastatin 40 mg PO DAILY AT SUPPER 01/27/20 Spironolactone 25 mg PO DAILY 01/27/20 Warfarin Sodium [Coumadin] 4 mg PO DAILY 01/27/20 Albuterol Sulfate [Proair Hfa] 2 puff IH QID 03/12/20 Docusate [Colace Cap*] 1 cap PO DAILY 03/12/20 Fluticasone/Vilanterol [Breo Ellipta 100-25 Mcg INH] 1 puff IH DAILY 03/12/20 Insulin Degludec/Liraglutide [Xultophy 100 Unit-3.6MG/ml Pen] 50 units SQ DAILY 03/12/20 Sertraline HCl 50 mg PO DAILY 03/12/20 - Past Medical/Surgical History Diabetic: Yes -: Hypothyroidism -: Diabetes mellitus type 2, insulin dependent -: COPD -: Hypertension -: Obstructive sleep apnea noncompliant -: UTERINE CA (BARIUM IMPLANTS) -: CHF, diastolic -: Hyperlipidemia -: Obesity -: Recurrent UTI -: Bilateral cataract surgery -: Hemorrhoidectomy -: Aortic valve replacement -: CABG Psychosocial/ Personal History: Patient is single. She lives at home. - Family History Mother Medical History: Diabetes, Other (see notes) Notes: CHF Father Medical History: Diabetes, Cancer Notes: Prostate Cancer Brother Medical History: Diabetes Sister Medical History: Diabetes Notes: Third and sixth nerve palsy - Social History Smoking Status: Unknown if ever smoked Alcohol use: Yes CD- Drugs: No Caffeine use: No Place of Residence: Home Review of Systems 10-point ROS is otherwise unremarkable General: Weakness, Malaise Respiratory: SOB with Excertion Genitourinary: Dysuria, Frequency Neurological: Weakness Physical Examination Temp Pulse Resp BP Pulse Ox 98.8 F 80 18 124/59 L 97 03/12/20 20:00 03/12/20 20:00 03/12/20 20:00 03/12/20 20:00 03/12/20 20:00 General: Alert, Oriented x3, Cooperative HEENT: Atraumatic Neck: Supple Respiratory: Clear to auscultation bilaterally, Diminished Cardiovascular: Regular rate/rhythm, Edema Gastrointestinal: Soft and benign, Non-distended Musculoskeletal: No clubbing, No contractures Integumentary: No rashes, No cyanosis Neurological: Normal speech Laboratory Data (last 24 hrs) 03/12/20 12:40: WBC 18.2 H, Hgb 9.5 L, Hct 29.9 L, Plt Count 238 03/12/20 12:40: Sodium 134 L, Potassium 4.4, BUN 39 H, Creatinine 1.74 H, Glucose 285 H, Total Bilirubin 0.5, AST 13 L, ALT 15, Alkaline Phosphatase 107, Amylase 36, Lipase 130 Imagings Data: Echocardiogram: MILD PULMONARY HYPERTENSION. RIGHT VENTRICULAR SYSTOLIC PRESSURE 46mmHg. MITRAL ANNULAR CALCIFICATION. AORTIC SCLEROSIS. LEFT ATRIAL ENLARGEMENT. NORMAL LEFT VENTRICULAR SIZE. NORMAL LEFT VENTRICULAR EJECTION FRACTION. Conclusions/Impression: A/ ELIE in the setting of sepsis. Hyponatremia Acidosis CKD III with proteinuria HTN complicated by hypotension Diastolic CHF, chronic. DM II with CKD. Moderate malnutrition. Anemia in chronic illness. Sepsis in the setting of acute cystitis. P/ Continue current POC and Medications. IVF bolus as needed. Start oral bicarb. Continue abx. Follow up culture. No NSAIDs. AM labs. Daily weight. Thank you kindly for the consultation.
[2020-03-12] MEDS ORDERED: ACETAMINOPHEN 500 MG TAB PO ONE (23:04)
[2020-03-13] MEDS: ACETAMINOPHEN 325 MG TABLET PO PRN (05:41)
[2020-03-13 06:53] LABS: Magnesium 2.5 mg/dL (1.8-2.4); Phosphorus 3.5 mg/dL (2.5-4.9); Potassium 4.2 mmol/L (3.5-5.1); Thyroid Stimulating Hormone 0.37 uIU/mL (0.360-3.740); Uric Acid 6.2 mg/dL (2.6-6.0)
[2020-03-13 06:58] LABS: Absolute Lymphocytes (CBC) 1.2 K/uL (0.7-4.9); Lymphocytes % 5.7 % (15.3-44.8)
[2020-03-13 07:02] LABS: Urine Appearance CLOUDY; Urine Bilirubin NEGATIVE (NEG); Urine Blood 2+ (NEG); Urine Color DK YELLOW; Urine Glucose 3+ (NEG); Urine Protein 1+ (NEG); Urine Urobilinogen 0.2 mg/dL (0.2-1.0)
[2020-03-13 07:05] LABS: Basophils % 0.3 % (0-1.3); Hematocrit 29.8 % (36.0-45.0); MPV 8.8 fL (7.6-11.3); RBC Red Blood Cell Count 3.96 M/uL (3.86-4.86)
--- NOTE | 2020-03-13 07:38 | RAD REPORT ---
EXAM DESCRIPTION: RAD - Chest Single View - 03/13/2020 7:26 am CLINICAL HISTORY: SOB COMPARISON: Portable 05/07/2019 TECHNIQUE: AP portable chest image was obtained 03/13/2020 7:26 am . FINDINGS: Lung volumes are low. Portable technique, shallow inspiration and very large body habitus limit the examination. Cardiomegaly is present along with vascular engorgement. Interstitial opacific ation is present. Findings are more pronounced than seen previously even when adjusting for inspirato ry differences. No measurable pleural effusion and no pneumothorax. No acute bony abnormality seen. N o acute aortic findings suspected. IMPRESSION: Mild to moderate CHF/ volume overload findings.
[2020-03-13 07:58] LABS: Urine Bacteria 20-50 /HPF (<20); Urine Culture Reflex Order REFLEXED; Urine Yeast PRESENT (NONE SEEN)
[2020-03-13] MEDS ORDERED: ALBUTEROL 2.5 MG/3 ML NEB SOL NEB SCH (08:00)
[2020-03-13] MEDS ORDERED: IPRATROPIUM BROM 0.5MG/2.5ML NEB SCH (08:00)
[2020-03-13] MEDS ORDERED: IPRATROPIUM 200 PUFF/12.9 GM INH IH PRN (08:17)
[2020-03-13] MEDS ORDERED: ALBUTEROL INHALER 60 PUFF/8 GM IH PRN (08:17)
[2020-03-13] MEDS ORDERED: FLUCONAZOLE 100 MG TAB PO PRN (08:21)
[2020-03-13] MEDS: HOME MED 1 EA UNK (Fluticasone/Vilanterol [Breo Ellipta 100-25 Mcg Inh] 1 PUFF) IH SCH (09:00)
[2020-03-13] MEDS ORDERED: predniSONE 10 MG TAB PO SCH (09:00)
[2020-03-13] MEDS ORDERED: DULERA 100/5 (MOMETASONE/FORMOTEROL) INHALER IH SCH (09:00)
[2020-03-13] MEDS ORDERED: FUROSEMIDE 40 MG TABLET PO SCH (09:00)
[2020-03-13] MEDS ORDERED: SERTRALINE HCL 50 MG TAB PO SCH (09:00)
[2020-03-13] MEDS: BECLOMETHASONE DIPROPIONATE IN SCH (09:00)
[2020-03-13] MEDS: INSULIN -REGULAR HUMAN 50 UNIT/0.5 ML ML SQ SCH ×4 (09:49→20:11)
[2020-03-13] MEDS: GABAPENTIN 300 MG CAP PO SCH (09:50)
[2020-03-13] MEDS: SERTRALINE HCL 50 MG TAB PO SCH (09:50)
[2020-03-13] MEDS: SPIRONOLACTONE 25 MG TABLET PO SCH (09:50)
[2020-03-13] MEDS: ASPIRIN EC 81 MG TAB PO SCH (09:50)
[2020-03-13] MEDS: SODIUM BICARB 325 MG TAB PO SCH ×3 (09:50→16:16)
[2020-03-13] MEDS: MONTELUKAST 10 MG TAB PO SCH (09:50)
[2020-03-13] MEDS: METOPROLOL XL 25 MG TAB PO SCH (09:50)
[2020-03-13] MEDS: DOCUSATE NA 100 MG CAP PO SCH (09:51)
[2020-03-13] MEDS: Meropenem 1,000 MG in NA CHLORIDE 0.9% 100 ML IV SCH ×2 (09:51→20:11)
[2020-03-13 11:45] LABS: Anisocytosis 1+; Blood Morphology Comment NOTED (NOT SEEN); Platelet Estimate ADEQ
[2020-03-13] MEDS ORDERED: METHYLPREDNISOLONE 125 MG INJ IV SCH (12:00)
[2020-03-13 13:36] LABS: Protime INR 2.91
--- NOTE | 2020-03-13 14:30 | P.PN ---
Subjective Date of Service: 03/13/20 Primary Care Provider: Dr. Rowe Chief Complaint: Urinary tract infection clinically looks well. alert/breathing better but still needing oxygen. had been on twice daily lasix at home. hx of chf/cad. presents with dominga/uti/? sepsis. now off ivf. on lasix once daily and spirnolactone. bp reasonable and patient breathing better. vs stable lungs decreased bs b/l. b/l crackles at bases abd obese/soft/nt/bs + ext +3 edema b/l cvs distant/rrr a/p: volume overload/uti with ? sespsis: on abx/off ivf now, agree/monitor breathing. on lasix/spirnolactone. monitor bp. as condition improves on abx, may need to increase lasix atleast to home dose of twice daily. close monitoring to evaluate chf status/volume status. while on lower diuretic dose and s/p ivf. Physical Examination - Vital Signs Temperature: 97.8 F Blood Pressure: 131/60 Pulse: 75 Respirations: 22 Pulse Ox (%): 98 - Studies Microbiology Data (last 24 hrs): 03/12/20 12:40 Blood - Blood Blood Culture Gram Stain - Final
[2020-03-13] MEDS ORDERED: GLUCAGON 1 MG/VIAL IM PRN (15:03)
[2020-03-13] MEDS ORDERED: D50W 25 GM/50 ML SYRINGE/VIAL IV PRN (15:03)
--- NOTE | 2020-03-13 15:06 | P.PN ---
Subjective Date of Service: 03/13/20 Primary Care Provider: Dr. Rowe Chief Complaint: Urinary tract infection Subjective: Other (Mild congestion noted.) Physical Examination - Vital Signs Temperature: 97.8 F Blood Pressure: 131/60 Pulse: 75 Respirations: 22 Pulse Ox (%): 98 - Physical Exam General: Alert, In no apparent distress, Oriented x3, Cooperative HEENT: Atraumatic Neck: Supple Respiratory: Crackles/rales Cardiovascular: Normal pulses, Regular rate/rhythm Gastrointestinal: Normal bowel sounds, Soft and benign, Non-distended, No tenderness, No masses, No rebound, No guarding Musculoskeletal: No erythema, No tenderness, No warmth Integumentary: No tenderness/swelling, No erythema, No warmth, No cyanosis Neurological: Normal speech, Normal strength at 5/5 x4 extr, Normal tone - Studies Microbiology Data (last 24 hrs): 03/12/20 12:40 Blood - Blood Blood Culture Gram Stain - Final Medications List Reviewed: Yes Assessment & Plan Discharge Plan: Home Plan to discharge in: 48 Hours Physician Review Additional Text: Assessment Recurrent Urinary tract infection with history of ESBL complicated with DMII and Farxiga use Acute on chronic kidney disease stage III Diabetes mellitus type 2 on long-term insulin therapy Chronic diastolic congestive heart failure with porcine aortic valve replacement on chronic anticoagulation therapy Hypertension COPD Obstructive sleep apnea Hypothyroidism Obesity Plan Recurrent Urinary tract infection with history of ESBL complicated with DMII and Farxiga use: Continue with IV antibiotic therapy. Patient now on meropenem. Await blood culture results. If positive patient will require PICC line and IV antibiotic therapy. Will continue monitor closely. Home medications reviewed and restarted. Adjustments made. Acute on chronic kidney disease stage III: Continue with nephrology recommendation. Will provide diuretic therapy. Diabetes mellitus type 2 on long-term insulin therapy: Continue sliding scale. Will start Lantus. Will monitor and adjust appropriately. Chronic diastolic congestive heart failure with porcine aortic valve replacement on chronic anticoagulation therapy: Will continue with patient's oral anticoagulant Coumadin 5 mg once daily. INR has been ordered, Coumadin will be adjusted as necessary. Continue with her diuretic therapy. Hypertension: Continue with medication. COPD: Continue with COPD medication. Maintain sats above 93%. Obstructive sleep apnea: Continue CPAP. Hypothyroidism: Continue medication Obesity: Continue dietary changes and recommendations. Time Spent Managing Pts Care (In Minutes): 55
[2020-03-13] MEDS: WARFARIN SODIUM 5 MG TAB PO SCH (16:16)
[2020-03-13] MEDS ORDERED: HOME MED 1 EA UNK (Simvastatin [Simvastatin] 40 MG) PO SCH (17:00)
[2020-03-13] MEDS: INSULIN GLARGINE 100 UNITS/ML SQ SCH (17:54)
[2020-03-13] MEDS: ATORVASTATIN 20 MG TAB PO SCH (20:10)
[2020-03-13] MEDS: FUROSEMIDE 40 MG TABLET PO SCH (20:10)
[2020-03-13] MEDS ORDERED: INSULIN GLARGINE 100 UNITS/ML SQ SCH (21:00)
[2020-03-13 22:08] LABS: Urine Appearance CLEAR; Urine Bilirubin NEGATIVE (NEG); Urine Blood TRACE (NEG); Urine Color YELLOW; Urine Glucose 3+ (NEG); Urine Protein NEGATIVE (NEG); Urine Specific Gravity 1.025 (1.005-1.030); Urine Urobilinogen 0.2 mg/dL (0.2-1.0)
[2020-03-13 22:22] LABS: Urine Bacteria 20-50 /HPF (<20)
[2020-03-13 22:23] LABS: Urine Mucus 1+ /HPF (NONE SEEN); Urine Yeast MANY (NONE SEEN)
[2020-03-13 22:24] LABS: Urine Culture Reflex Order NOT NEEDED
[2020-03-14] MEDS: LEVOTHYROXINE SOD 0.075 MG TAB PO SCH (05:10)
[2020-03-14 06:36] LABS: Potassium 4.3 mmol/L (3.5-5.1)
[2020-03-14 06:40] LABS: Absolute Lymphocytes (CBC) 0.6 K/uL (0.7-4.9); Basophils % 0.1 % (0-1.3); Hematocrit 29.5 % (36.0-45.0); MPV 8.4 fL (7.6-11.3); Protime INR 3.78
[2020-03-14] MEDS: HOME MED 1 EA UNK (Fluticasone/Vilanterol [Breo Ellipta 100-25 Mcg Inh] 1 PUFF) IH SCH (09:00)
[2020-03-14] MEDS ORDERED: predniSONE 10 MG TAB PO SCH (09:00)
[2020-03-14] MEDS: BECLOMETHASONE DIPROPIONATE IN SCH (09:00)
[2020-03-14] MEDS: ASPIRIN EC 81 MG TAB PO SCH (09:12)
[2020-03-14] MEDS: SPIRONOLACTONE 25 MG TABLET PO SCH (09:12)
[2020-03-14] MEDS: MONTELUKAST 10 MG TAB PO SCH (09:12)
[2020-03-14] MEDS: SERTRALINE HCL 50 MG TAB PO SCH (09:12)
[2020-03-14] MEDS: DOCUSATE NA 100 MG CAP PO SCH (09:12)
[2020-03-14] MEDS: FUROSEMIDE 40 MG TABLET PO SCH ×2 (09:12→20:34)
[2020-03-14] MEDS: GABAPENTIN 300 MG CAP PO SCH (09:12)
[2020-03-14] MEDS: INSULIN GLARGINE 100 UNITS/ML SQ SCH ×2 (09:13→20:35)
[2020-03-14] MEDS: Meropenem 1,000 MG in NA CHLORIDE 0.9% 100 ML IV SCH ×2 (09:13→20:33)
[2020-03-14] MEDS: SODIUM BICARB 325 MG TAB PO SCH ×3 (09:13→17:05)
[2020-03-14] MEDS: METOPROLOL XL 25 MG TAB PO SCH (09:13)
[2020-03-14] MEDS: INSULIN -REGULAR HUMAN 50 UNIT/0.5 ML ML SQ SCH ×4 (09:14→20:34)
--- NOTE | 2020-03-14 13:19 | P.PN ---
Subjective Date of Service: 03/14/20 Primary Care Provider: Dr. Rowe Chief Complaint: Urinary tract infection Subjective: No new changes, Tolerating diet, Improving Physical Examination - Vital Signs Temperature: 97.0 F Blood Pressure: 118/53 Pulse: 77 Respirations: 20 Pulse Ox (%): 92 - Physical Exam General: Alert, In no apparent distress, Oriented x3, Obese HEENT: Atraumatic, Normocephalic, EOMI Neck: Supple Respiratory: Clear to auscultation bilaterally, Normal air movement Cardiovascular: Normal pulses, Regular rate/rhythm, Normal S1 S2 Gastrointestinal: Normal bowel sounds, Soft and benign, Non-distended Musculoskeletal: No clubbing, No swelling, No contractures, No erythema, No tenderness, No warmth Integumentary: No rashes, No breakdown, No significant lesion, No tenderness/swelling, No erythema, No warmth, No cyanosis Neurological: Normal speech, Sensation intact, Normal affect - Studies Laboratory Data (last 24 hrs) 03/13/20 13:23: PT 33.6 H, INR 2.91 Microbiology Data (last 24 hrs): 03/12/20 13:45 Clean Catch Urine [place] Count - Final >100,000 CFU/ML. 03/12/20 13:45 Clean Catch Urine - Final Escherichia Coli 03/12/20 12:40 Blood - Blood Blood Culture Gram Stain - Final 03/13/20 01:21 Nasopharnyx Coronavirus COVID-19 PCR - Final Medications List Reviewed: Yes Assessment & Plan - Problems (Diagnosis) (1) Multiple drug resistant organism (MDRO) culture positive Current Visit: Yes Status: Acute (2) COPD (chronic obstructive pulmonary disease) Current Visit: Yes Status: Acute (3) H/O aortic valve replacement with porcine valve Current Visit: Yes Status: Acute (4) COPD (chronic obstructive pulmonary disease) Current Visit: No Status: Acute (5) Cystitis Current Visit: No Status: Acute (6) DM type 2 (diabetes mellitus, type 2) Current Visit: No Status: Acute (7) GERD (gastroesophageal reflux disease) Onset Date: 01/08/17 Current Visit: No Status: Acute (8) Hypothyroidism Onset Date: 01/08/17 Current Visit: No Status: Acute (9) Morbid obesity with BMI of 50.0-59.9, adult Onset Date: 10/09/17 Current Visit: No Status: Acute (10) KIERSTEN (obstructive sleep apnea) Onset Date: 06/04/17 Current Visit: No Status: Acute (11) UTI (urinary tract infection) Onset Date: 01/08/17 Current Visit: No Status: Acute Qualifiers: Urinary tract infection type: acute cystitis Hematuria presence: without hematuria Qualified Code(s): N30.00 - Acute cystitis without hematuria (12) CHF (congestive heart failure) Onset Date: 01/08/17 Current Visit: No Status: Chronic Qualifiers: Heart failure type: combined systolic and diastolic (13) Diabetes type 2, uncontrolled Onset Date: 01/08/17 Current Visit: No Status: Chronic Physician Review Additional Text: Assessment Patient is a 59 year old female with morbid obesity, uncontrolled type II DM, aortic valve replacement with a porcine valve, and COPD currenlty admitted with cystitis. Urine cultures yielded MDR E. coli complicated by bacteremia. Recurrent Urinary tract infection with history of ESBL complicated with DMII and Farxiga use Acute on chronic kidney disease stage III Diabetes mellitus type 2 on long-term insulin therapy Chronic diastolic congestive heart failure with porcine aortic valve replacement on chronic anticoagulation therapy Hypertension COPD Obstructive sleep apnea Hypothyroidism Obesity Plan Recurrent Urinary tract infection with history of ESBL complicated with DMII and Farxiga use: Currently on meropenem. Follow up blood cultures. PICC line if blood cultures are positive Acute on chronic kidney disease stage III: Continue with nephrology recommendation. Will provide diuretic therapy. Diabetes mellitus type 2 on long-term insulin therapy: A1c 8.8 Hyperglycemia most likely steroid induced. She is on prednisone for COPD Patient started on lantus BID Continue sliding scale. Will monitor and adjust appropriately. Chronic diastolic congestive heart failure with porcine aortic valve replacement on chronic anticoagulation therapy: On warfarin Currently with supra-therapeutic INR, 3.78 Appreciate pharmacy dosing Hypertension: BP is controlled COPD: Continue with COPD medication. Maintain sats above 93%. Obstructive sleep apnea: Continue CPAP. Hypothyroidism: Continue levothyroxine Obesity: Complicates overall care and prognosis Continue dietary changes and recommendations.
[2020-03-14] MEDS: WARFARIN SODIUM 5 MG TAB PO SCH (17:00)
[2020-03-14 19:44] VITALS: BMI 52.5
[2020-03-14] MEDS: ATORVASTATIN 20 MG TAB PO SCH (20:33)
[2020-03-14] MEDS ORDERED: GLUCAGON 1 MG/VIAL IM PRN (21:48)
[2020-03-14] MEDS ORDERED: D50W 25 GM/50 ML SYRINGE/VIAL IV PRN (21:48)
[2020-03-14] MEDS ORDERED: INSULIN 70/30 100 UNITS/ML SQ ONE (23:00)
[2020-03-15] MEDS: ACETAMINOPHEN 325 MG TABLET PO PRN (04:03)
[2020-03-15 06:15] LABS: Protime INR 4.58
[2020-03-15] MEDS: LEVOTHYROXINE SOD 0.075 MG TAB PO SCH (06:17)
[2020-03-15] MEDS: INSULIN -REGULAR HUMAN 50 UNIT/0.5 ML ML SQ SCH ×4 (07:30→21:14)
[2020-03-15 08:31] LABS: Basophils % 0.3 % (0-1.3); Hematocrit 28.4 % (36.0-45.0); Lymphocytes % 8.5 % (15.3-44.8); MPV 8.1 fL (7.6-11.3); RBC Red Blood Cell Count 3.87 M/uL (3.86-4.86)
[2020-03-15] MEDS: SERTRALINE HCL 50 MG TAB PO SCH (08:51)
[2020-03-15] MEDS: MONTELUKAST 10 MG TAB PO SCH (08:51)
[2020-03-15] MEDS: SODIUM BICARB 325 MG TAB PO SCH ×3 (08:51→16:23)
[2020-03-15] MEDS: ASPIRIN EC 81 MG TAB PO SCH (08:51)
[2020-03-15] MEDS: METOPROLOL XL 25 MG TAB PO SCH (08:52)
[2020-03-15] MEDS: FUROSEMIDE 40 MG TABLET PO SCH ×2 (08:52→21:03)
[2020-03-15] MEDS: DOCUSATE NA 100 MG CAP PO SCH (08:52)
[2020-03-15] MEDS: SPIRONOLACTONE 25 MG TABLET PO SCH (08:53)
[2020-03-15] MEDS: HOME MED 1 EA UNK (Fluticasone/Vilanterol [Breo Ellipta 100-25 Mcg Inh] 1 PUFF) IH SCH (08:53)
[2020-03-15] MEDS: BECLOMETHASONE DIPROPIONATE IN SCH (08:53)
[2020-03-15] MEDS: GABAPENTIN 300 MG CAP PO SCH (08:53)
[2020-03-15] MEDS: INSULIN GLARGINE 100 UNITS/ML SQ SCH ×2 (08:54→21:13)
[2020-03-15] MEDS: INSULIN LISPRO 100 UNIT/1 ML SQ SCH ×3 (08:54→16:22)
[2020-03-15] MEDS: Meropenem 1,000 MG in NA CHLORIDE 0.9% 100 ML IV SCH (08:55)
--- NOTE | 2020-03-15 13:18 | P.PN ---
Subjective Date of Service: 03/15/20 Primary Care Provider: Dr. Rowe Chief Complaint: Urinary tract infection Subjective: Improving, Doing well Physical Examination - Vital Signs Temperature: 97.9 F Blood Pressure: 122/60 Pulse: 64 Respirations: 19 Pulse Ox (%): 98 - Physical Exam General: Alert, In no apparent distress, Oriented x3, Cooperative HEENT: Atraumatic Neck: Supple Respiratory: Clear to auscultation bilaterally, Normal air movement Cardiovascular: Normal pulses, Regular rate/rhythm Gastrointestinal: Normal bowel sounds, Soft and benign, Non-distended Neurological: Normal speech, Normal strength at 5/5 x4 extr, Normal tone, Normal affect - Studies Microbiology Data (last 24 hrs): 03/12/20 12:40 Blood - Blood Blood Culture Gram Stain - Final 03/12/20 13:45 Clean Catch Urine [place] Count - Final >100,000 CFU/ML. 03/12/20 13:45 Clean Catch Urine - Final Escherichia Coli Medications List Reviewed: Yes Assessment & Plan Discharge Plan: Home Plan to discharge in: 24 Hours Physician Review Additional Text: Assessment Patient is a 59 year old female with morbid obesity, uncontrolled type II DM, aortic valve replacement with a porcine valve, and COPD currenlty admitted with cystitis. Urine cultures yielded MDR E. coli complicated by bacteremia. Recurrent Urinary tract infection with history of ESBL complicated with DMII and Farxiga use Acute on chronic kidney disease stage III Diabetes mellitus type 2 on long-term insulin therapy Chronic diastolic congestive heart failure with porcine aortic valve replacement on chronic anticoagulation therapy Hypertension COPD Obstructive sleep apnea Hypothyroidism Obesity Plan Recurrent Urinary tract infection with history of ESBL complicated with DMII and Farxiga use, urine culture positive for E coli: So far urine culture positive for E coli. No ESBL found. Therefore will discontinue meropenem. Likely no need for IV antibiotic therapy. Case discussed with pharmacy. Will transition to Augmentin. INR elevated. Will like to see this slightly better prior to discharge. Hold discharge for today. If INR improved then plan for discharge tomorrow. Patient will require home health and physical therapy. 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 I will turn the service over to the hospitalist team tomorrow. I will go over plan of care with him. Acute on chronic kidney disease stage III: Continue with nephrology recommendation. Diabetes mellitus type 2 on long-term insulin therapy: A1c 8.8 Hyperglycemia most likely steroid induced. Discontinue prednisone. Patient started on lantus BID Continue sliding scale. Will monitor and adjust appropriately. Chronic diastolic congestive heart failure with porcine aortic valve replacement on chronic anticoagulation therapy: On warfarin for her aortic valve replacement. Case discussed at length with her ball mill mixer. Patient has tissue valve. Goal INR between 2.5 and 3.5. Continue to hold Coumadin if INR greater than 3.5. Will need to monitor INR closely since the patient will be on antibiotic therapy. He plans to monitor this closely at discharge. Hypertension: BP is controlled COPD: Continue with COPD medication. Maintain sats above 93%. Will discontinue prednisone. Obstructive sleep apnea: Continue CPAP. Hypothyroidism: Continue levothyroxine Obesity: Complicates overall care and prognosis Continue dietary changes and recommendations. Time Spent Managing Pts Care (In Minutes): 55
[2020-03-15 14:59] LABS: C.diff Antigen/Toxin Ag neg : Tox neg (NEG : NEG)
[2020-03-15] MEDS: AMOX/K CLAV 875 MG TAB PO SCH (21:03)
[2020-03-15] MEDS: ATORVASTATIN 20 MG TAB PO SCH (21:03)
[2020-03-15] MEDS ORDERED: INSULIN 70/30 100 UNITS/ML SQ ONE (22:00)
[2020-03-15 22:34] VITALS: O2SAT 96
[2020-03-16 04:36] LABS: Protime INR 3.48
[2020-03-16] MEDS: LEVOTHYROXINE SOD 0.075 MG TAB PO SCH (05:29)
[2020-03-16] MEDS: ACETAMINOPHEN 325 MG TABLET PO PRN (06:01)
[2020-03-16] MEDS: INSULIN LISPRO 100 UNIT/1 ML SQ SCH (07:30)
[2020-03-16] MEDS: INSULIN -REGULAR HUMAN 50 UNIT/0.5 ML ML SQ SCH ×2 (08:38→11:30)
[2020-03-16] MEDS: MONTELUKAST 10 MG TAB PO SCH (08:40)
[2020-03-16] MEDS: FUROSEMIDE 40 MG TABLET PO SCH (08:40)
[2020-03-16] MEDS: SODIUM BICARB 325 MG TAB PO SCH ×2 (08:40→11:32)
[2020-03-16] MEDS: SERTRALINE HCL 50 MG TAB PO SCH (08:40)
[2020-03-16] MEDS: ASPIRIN EC 81 MG TAB PO SCH (08:40)
[2020-03-16] MEDS: GABAPENTIN 300 MG CAP PO SCH (08:40)
[2020-03-16] MEDS: SPIRONOLACTONE 25 MG TABLET PO SCH (08:41)
[2020-03-16] MEDS: AMOX/K CLAV 875 MG TAB PO SCH (08:41)
[2020-03-16] MEDS: DOCUSATE NA 100 MG CAP PO SCH (08:41)
[2020-03-16] MEDS: METOPROLOL XL 25 MG TAB PO SCH (08:41)
[2020-03-16 08:42] LABS: Absolute Lymphocytes (CBC) 1.2 K/uL (0.7-4.9); Basophils % 0.6 % (0-1.3); Hematocrit 29.8 % (36.0-45.0); Lymphocytes % 11.7 % (15.3-44.8); MPV 7.8 fL (7.6-11.3); RBC Red Blood Cell Count 3.97 M/uL (3.86-4.86)
[2020-03-16] MEDS: HOME MED 1 EA UNK (Fluticasone/Vilanterol [Breo Ellipta 100-25 Mcg Inh] 1 PUFF) IH SCH (08:42)
[2020-03-16] MEDS: BECLOMETHASONE DIPROPIONATE IN SCH (08:46)
[2020-03-16] MEDS ORDERED: INSULIN GLARGINE 100 UNITS/ML SQ SCH (09:00)
--- NOTE | 2020-03-16 11:07 | P.DS ---
Admission Date: 03/13/20 Discharge Date: 03/16/20 Primary Care Provider: Dr. Rowe Disposition: ROUTINE DISCHARGE Discharge Condition: GOOD Reason for Admission: Urinary tract infection - Problems (1) Multiple drug resistant organism (MDRO) culture positive Current Visit: Yes Status: Acute (2) COPD (chronic obstructive pulmonary disease) Current Visit: Yes Status: Acute (3) H/O aortic valve replacement with porcine valve Current Visit: Yes Status: Acute (4) COPD (chronic obstructive pulmonary disease) Current Visit: No Status: Acute (5) Cystitis Current Visit: No Status: Acute (6) DM type 2 (diabetes mellitus, type 2) Current Visit: No Status: Acute (7) GERD (gastroesophageal reflux disease) Onset Date: 01/08/17 Current Visit: No Status: Acute (8) Hypothyroidism Onset Date: 01/08/17 Current Visit: No Status: Acute (9) Morbid obesity with BMI of 50.0-59.9, adult Onset Date: 10/09/17 Current Visit: No Status: Acute (10) KIERSTEN (obstructive sleep apnea) Onset Date: 06/04/17 Current Visit: No Status: Acute (11) UTI (urinary tract infection) Onset Date: 01/08/17 Current Visit: No Status: Acute Qualifiers: Urinary tract infection type: acute cystitis Hematuria presence: without hematuria Qualified Code(s): N30.00 - Acute cystitis without hematuria (12) CHF (congestive heart failure) Onset Date: 01/08/17 Current Visit: No Status: Chronic Qualifiers: Heart failure type: combined systolic and diastolic (13) Diabetes type 2, uncontrolled Onset Date: 01/08/17 Current Visit: No Status: Chronic (14) Sepsis Current Visit: Yes Status: Acute Brief History of Present Illness: Please refer to H&P Hospital Course: Patient is a 59-year-old female with a past medical history morbid obesity, hypertension, hyperlipidemia, uncontrolled type 2 diabetes mellitus (on insulin), and porcine aortic valve (on warfarin). She was admitted for UTI. Her urine and blood culture yielded multi-drug resistant E coli. She has done well on meropenem since admission. Her hospital course was complicated by uncontrolled hyperglycemia. She was on prednisone for unknown reason. Her blood glucose profile improved after discontinuation of prednisone and adjustment of her insulin regimen. Her INR was also supratherapeutic reaching as high as 4. Her warfarin has been held for the last 2 days. Her cardiology was contacted regarding the warfarin and he insists on continuing the medication. Vital Signs/Physical Exam: Temp Pulse Resp BP Pulse Ox 97.2 F 63 19 107/46 L 93 03/16/20 08:00 03/16/20 08:41 03/16/20 08:00 03/16/20 08:41 03/16/20 08:00 General: In no apparent distress, Cooperative, Obese HEENT: Atraumatic, Normocephalic, EOMI Neck: Supple Respiratory: Clear to auscultation bilaterally, Normal air movement Cardiovascular: No edema, Normal pulses, Regular rate/rhythm, Normal S1 S2, Abnormal S3 Gastrointestinal: Normal bowel sounds, Soft and benign, Non-distended, No tenderness Musculoskeletal: No clubbing, No swelling, No contractures, No erythema, No tenderness, No warmth Neurological: Normal speech, Sensation intact, Normal affect Laboratory Data at Discharge: WBC 10.1 K/uL (4.3-10.9) D 03/16/20 08:25 Hgb 9.5 g/dL (12.0-15.0) L 03/16/20 08:25 Hct 29.8 % (36.0-45.0) L 03/16/20 08:25 Plt Count 332 K/uL (152-406) 03/16/20 08:25 PT 40.1 SECONDS (9.5-12.5) H 03/16/20 03:58 INR 3.48 03/16/20 03:58 Sodium 136 mmol/L (136-145) 03/15/20 08:14 Potassium 4.0 mmol/L (3.5-5.1) 03/15/20 08:14 BUN 54 mg/dL (7-18) H 03/15/20 08:14 Creatinine 1.14 mg/dL (0.55-1.3) 03/15/20 08:14 Glucose 151 mg/dL (74-106) H 03/15/20 08:14 Uric Acid 6.2 mg/dL (2.6-6.0) H 03/13/20 05:34 Phosphorus 3.5 mg/dL (2.5-4.9) 03/13/20 05:34 Magnesium 2.5 mg/dL (1.8-2.4) H 03/13/20 05:34 Total Bilirubin 0.5 mg/dL (0.2-1.0) 03/12/20 12:40 AST 13 U/L (15-37) L 03/12/20 12:40 ALT 15 U/L (12-78) 03/12/20 12:40 Alkaline Phosphatase 107 U/L (45-117) 03/12/20 12:40 Triglycerides 143 mg/dL (<150) 03/13/20 05:34 Cholesterol 103 mg/dL (<200) 03/13/20 05:34 HDL Cholesterol 36 mg/dL (40-60) L 03/13/20 05:34 Cholesterol/HDL Ratio 2.86 03/13/20 05:34 Amylase 36 U/L (25-115) 03/12/20 12:40 Lipase 130 U/L (73-393) 03/12/20 12:40 Home Medications: Albuterol Sulfate [Albuterol Sulfate 0.083% Neb Soln] 1 amp IN TID 01/27/20 Aspirin [Adult Low Dose Aspirin EC] 81 mg PO DAILY 01/27/20 Beclomethasone Dipropionate [Qnasl] 2 sprays IN DAILY 01/27/20 Furosemide [Lasix*] 40 mg PO BIDL 01/27/20 Gabapentin 300 mg PO DAILY 01/27/20 Insulin -Regular Human [Novolin -R*] 10 unit SQ SEECOM 01/27/20 Levothyroxine Sodium 75 mcg PO 0600 01/27/20 Metoprolol Succinate 25 mg PO DAILY 01/27/20 Montelukast Sodium [Singulair] 10 mg PO DAILY 01/27/20 Potassium Chloride [Micro-K] 10 meq PO BID 01/27/20 Sertraline HCl 50 mg PO DAILY 01/27/20 Simvastatin 40 mg PO DAILY AT SUPPER 01/27/20 Spironolactone 25 mg PO DAILY 01/27/20 Albuterol Sulfate [Proair Hfa] 2 puff IH QID 03/12/20 Fluticasone/Vilanterol [Breo Ellipta 100-25 Mcg INH] 1 puff IH DAILY 03/12/20 Insulin Degludec/Liraglutide [Xultophy 100 Unit-3.6MG/ml Pen] 50 units SQ DAILY 03/12/20 Sertraline HCl 50 mg PO DAILY 03/12/20 Amox/Clavulanate [Augmentin 875-125 Tab*] 875 mg PO BID #8 tab 03/16/20 Furosemide [Lasix*] 40 mg PO BID tab 03/16/20 Ipratropium Mdi [Atrovent Hf Inhaler*] 1 puff IH QID PRN inh 03/16/20 Na Bicarb Tab [Sodium Bicarb 325 MG Tab*] 650 mg PO TIDWM tab 03/16/20 Warfarin Sodium 4 mg PO DAILY 6PM 14 Days #14 tablet 03/16/20 New Medications: Amox/Clavulanate [Augmentin 875-125 Tab*] 875 mg PO BID #8 tab Warfarin Sodium 4 mg PO DAILY 6PM 14 Days #14 tablet Diet: ADA Followup: Modesto Blackwell DO [ACTIVE - CAN ADMIT] -
[2020-03-16] MEDS ORDERED: INSULIN LISPRO 100 UNIT/1 ML SQ SCH (11:30)
[2020-03-16 13:57] VITALS: BP 149/62; TEMP 97.7
[2020-03-16] MEDS ORDERED: WARFARIN SODIUM 4 MG TAB PO SCH (17:00)
--- NOTE | 2020-03-16 21:31 | P.PN ---
Date of Service: 03/15/20 Vital Signs Temp Pulse Resp BP Pulse Ox 97.7 F 74 18 149/62 H 95 03/16/20 12:00 03/16/20 12:00 03/16/20 12:00 03/16/20 12:00 03/16/20 12:00 Microbiology Results 03/12/20 12:40 Blood - Blood Aerobic Blood Culture - Preliminary Escherichia Coli 03/12/20 12:40 Blood - Blood Blood Culture Gram Stain - Final 03/12/20 12:40 Blood - Blood Anaerobic Blood Culture - Preliminary No growth in 24 hours. 03/12/20 12:40 Blood - Blood Aerobic Blood Culture - Preliminary Escherichia Coli 03/12/20 12:40 Blood - Blood Blood Culture Gram Stain - Preliminary 03/12/20 12:40 Blood - Blood Anaerobic Blood Culture - Preliminary No growth in 24 hours. 03/12/20 13:45 Clean Catch Urine [place] Count - Final >100,000 CFU/ML. 03/12/20 13:45 Clean Catch Urine - Final Escherichia Coli 03/13/20 01:21 Nasopharnyx Coronavirus COVID-19 PCR - Final Assessment/ Plan: Nephrology CPS stable without CP or SOB. No acute events overnight. Vitals, medications, blood work and imaging reviewed in the chart. General: Alert, Oriented x3, Cooperative HEENT: Atraumatic Neck: Supple Respiratory: Clear to auscultation bilaterally, Diminished Cardiovascular: Regular rate/rhythm, Edema Gastrointestinal: Soft and benign, Non-distended Musculoskeletal: No clubbing, No contractures Integumentary: No rashes, No cyanosis Neurological: Normal speech Laboratory Data (last 24 hrs) 03/12/20 12:40: WBC 18.2 H, Hgb 9.5 L, Hct 29.9 L, Plt Count 238 03/12/20 12:40: Sodium 134 L, Potassium 4.4, BUN 39 H, Creatinine 1.74 H, Gluco se 285 H, Total Bilirubin 0.5, AST 13 L, ALT 15, Alkaline Phosphatase 107, Amylase 36, Lipase 130 Imagings Data: Echocardiogram: MILD PULMONARY HYPERTENSION. RIGHT VENTRICULAR SYSTOLIC PRESSURE 46mmHg. MITRAL ANNULAR CALCIFICATION. AORTIC SCLEROSIS. LEFT ATRIAL ENLARGEMENT. NORMAL LEFT VENTRICULAR SIZE. NORMAL LEFT VENTRICULAR EJECTION FRACTION. Conclusions/Impression: A/ ELIE in the setting of sepsis. Hyponatremia Acidosis CKD III with proteinuria HTN complicated by hypotension Diastolic CHF, chronic. DM II with CKD. Moderate malnutrition. Anemia in chronic illness. Sepsis in the setting of acute cystitis. P/ Continue current POC and Medications. Continue diuresis. Continue abx. Follow up culture. Titrate insulin as needed. No NSAIDs. AM labs. Daily weight.
== END 2020-03-16 12:31 | disposition home health service (06) | DRG 872 ==
LOC: ER 12:07 → ERHOLD 14:54 → 2ND 16:44 → OBSVTOIN 03-13 16:34
PROVIDERS: ADMIT Internal Medicine; ATTEND Internal Medicine
DX: A41.9 Sepsis, unspecified organism (principal); I13.0 Hypertensive heart and chronic kidney disease with heart failure and stage 1 through stage 4 chronic kidney disease, or unspecified chronic kidney disease; Z16.12 Extended spectrum beta lactamase (ESBL) resistance; Z68.43 Body mass index [BMI] 50.0-59.9, adult; N17.9 Acute kidney failure, unspecified; E87.1 Hypo-osmolality and hyponatremia; E87.2 Acidosis; E44.0 Moderate protein-calorie malnutrition; N30.00 Acute cystitis without hematuria; I50.42 Chronic combined systolic (congestive) and diastolic (congestive) heart failure; E11.22 Type 2 diabetes mellitus with diabetic chronic kidney disease; E78.5 Hyperlipidemia, unspecified; Z79.4 Long term (current) use of insulin; J44.9 Chronic obstructive pulmonary disease, unspecified; Z85.42 Personal history of malignant neoplasm of other parts of uterus; Z95.1 Presence of aortocoronary bypass graft; Z87.891 Personal history of nicotine dependence; Z79.82 Long term (current) use of aspirin; Z79.890 Hormone replacement therapy; Z79.01 Long term (current) use of anticoagulants; Z79.899 Other long term (current) drug therapy; N18.3 Chronic kidney disease, stage 3 (moderate); N28.9 Disorder of kidney and ureter, unspecified; Z95.4 Presence of other heart-valve replacement; E03.9 Hypothyroidism, unspecified; G47.33 Obstructive sleep apnea (adult) (pediatric); Z11.59 Encounter for screening for other viral diseases; R80.9 Proteinuria, unspecified; D63.8 Anemia in other chronic diseases classified elsewhere; B96.20 Unspecified Escherichia coli [E. coli] as the cause of diseases classified elsewhere; T38.3X5A Adverse effect of insulin and oral hypoglycemic [antidiabetic] drugs, initial encounter; K21.9 Gastro-esophageal reflux disease without esophagitis; E66.01 Morbid (severe) obesity due to excess calories; E11.65 Type 2 diabetes mellitus with hyperglycemia; T38.0X5A Adverse effect of glucocorticoids and synthetic analogues, initial encounter
CPT/HCPCS: 36415; 71045; 80048; 80061; 80076; 81001; 81003; 81015; 82150; 82947; 83036; 83605; 83690; 83735; 84100; 84145; 84439; 84443; 84484; 84550; 85025; 85610; 87040; 87045; 87046; 87077; 87086; 87088; 87186; 87205; 87324; 87449; 93005; 94640; 96361; 96365; 97116; 97161; 97530; 99285; G0378; J0696; J1815; J2405; J2930; J7030; J7512; U0002

== ENCOUNTER 2020-05-12 19:33 | Inpatient (IN) | payer OTHER ==
--- OUTSIDE RECORDS SUMMARY | 2020-05-12 19:34 | XMS REPORT | Continuity of Care Document ---
:1960 Author Organization [facility] t Address [address] [place] [place] [address] Care Team Providers Name Role Phone Cate [...] DA Active U 2017-09 [facility]12 [facility] 00:00: [address] No Known DA Active U 2017-09 [facility] 0-26 [facility] 00:00: [address] Medications This patient has no known medications. Procedures This patient has no known procedures. Encounters Start End Encounter Admission Attending Care Care Encounter Source Date/Time Date/Time Type Type Clinicians Facility Department ID 2019-12-31 2019-12-31 Telephone VIPIN Varner [id number] 00:00:00 00:00:00 Cate Brito [id number] [place] [id number] [place] [id number] [address] 2019-05-15 2019-05-15 Delmy Morrissey WADARLINE [id number] 00:00:00 00:00:00 Irma Ceregene [id number] [facility] [id number] Primary & 0[facility] 2019-04-21 2019-04-21 Orders Doctor THAD [id number] 00:00:00 00:00:00 Only Unassigned, MAT[id number] [place] [id number] 2015-01-14 2015-01-14 Orders Doctor THAD [id number] 00:00:00 00:00:00 Only Unassigned, MATI [id number] [place] [phone] [id number] Results Test Description Test Time Test Comments Results Result [facility] e Comments HEART VALVE 2018-09-02 14:57:00 ----RUN DATE: 09/02/18 [facility] PAGE 1 RUN TIME: 1457 Specimen Inquiry RUN USER: INTERFACE ----PATIENT: ZINA WHYTE LOC: DELISA U #: [id number] AGE/SX: 58/F ROOM: [facility] RE08/30/18REG DR: Darron Robins MD : 60 BED: A DIS: STATUS: ADM IN TLOC: ---- SPEC #: [id number] RECD: 08/30/18 STATUS: ABRAHAM ALEJANDRO #: [id number] [place]: 08/30/18 [facility] DR: Darron Robins MD ENTERED: 08/30/18 SP TYPE: HEARTV OTHR DR: ORDERED: DECAL, SURG PATH LVL 4 CODES: [id number] - MITRAL VALVE, N [id number] - MITRAL VALVE, N BONE FORMATION [id number] - MITRAL VALVE, N CHRONIC INFLAMM [id number] [id number] - MITRAL VALVE, N MYXOID DEGENERA [id number] - MITRAL VALVE, N EXCISION, NOS PROCEDURES: DECAL (08/30/18) SURG PATH LVL 4 (08/30/18) TISSUES: A. MITRAL VALVE, NOS - MITRAL VAVLE LEAFLETS CLINICAL HISTORY SEVERAL MITRAL STENOSIS CPT CODES CPT CODE(S): 13543 , 62053 , , , , , FINAL DIAGNOSIS [...] CONTINUED ON NEXT PAGE ----RUN DATE: 09/02/18 [facility] - Lab PAGE 2 RUN TIME: 1456 Specimen Inquiry RUN USER: INTERFACE ----SPEC #: [id number] PATIENT: ZINA WHYTE #[id number] (Continued) ---- Signed SIGNATURE ON FILE Bere Ward 09/02/18 1457 ---- END OF REPORT
--- NOTE | 2020-05-12 20:34 | RAD REPORT ---
EXAM DESCRIPTION: RAD - Chest Single View - 05/12/2020 8:26 pm CLINICAL HISTORY: COUGH Chest pain. COMPARISON: Chest Single View dated 03/13/2020; Chest Single View dated 05/07/2019; Chest Single View dated 07/07/2018; Chest Single View dated 10/08/2017 FINDINGS: Portable technique limits examination quality. Moderate bilateral pulmonary opacities are present probably representing pulmonary edema or pneumonia . The heart is moderately enlarged in size. Sternotomy wires present.
[2020-05-12 20:45] LABS: Absolute Lymphocytes (CBC) 0.5 K/uL (0.7-4.9); Basophils % 0.3 % (0-1.3); Hematocrit 24.6 % (36.0-45.0); Lymphocytes % 16.7 % (15.3-44.8); MPV 7.7 fL (7.6-11.3); RBC Red Blood Cell Count 3.37 M/uL (3.86-4.86)
[2020-05-12] MEDS ORDERED: NA CHLORIDE 0.9% 250 ML ONE (20:46)
[2020-05-12] MEDS ORDERED: AZITHROMYCIN 500 MG INJ IVPB ONE (20:46)
[2020-05-12] MEDS ORDERED: CEFTRIAXONE/SWI 1gm 1 GM/10 ML SYR ONE (20:46)
[2020-05-12 20:49] LABS: Protime INR 1.84
[2020-05-12 21:08] LABS: ALT/SGPT 18 U/L (12-78); AST/SGOT 24 U/L (15-37); Albumin 2.9 g/dL (3.4-5.0); Alkaline Phosphatase 128 U/L (45-117); Amylase 46 U/L (25-115); BUN Blood Urea Nitrogen 36 mg/dL (7-18); Bicarbonate 22 mmol/L (21-32); Bilirubin Direct 0.1 mg/dL (0-0.2); Bilirubin Total 0.3 mg/dL (0.2-1.0); CKMB Creatine Kinase MB < 1.0 ng/mL (0.3-3.6); Creatine Phosphokinase 32 U/L (26-192); Ferritin 564.3 ng/mL (8-388); Glucose Level 93 mg/dL (74-106); Lipase 94 U/L (73-393); Potassium 4.2 mmol/L (3.5-5.1); Protein, Total 8.1 g/dL (6.4-8.2); Sodium Level 135 mmol/L (136-145); Troponin (Emerg Dept Use Only) < 0.02 ng/mL (0.0-0.045)
--- NOTE | 2020-05-12 21:14 | EDPHYS ---
Physician Documentation [facility] Name: Tessie Michaud Age: 60 yrs Sex: Female : 1960 Arrival Date: 05/12/2020 Time: 19:44 Bed 8 Private MD: ED Physician João Bertrand HPI: 05/12 21:13 This 60 yrs old Female presents to ER via EMS with complaints of recurrent UTI.jr8 21:13 Onset: The symptoms/episode began/occurred gradually, 5 day(s) ago. Associated signs jr8 and symptoms: Pertinent positives: shortness of breath. Modifying factors: The patient symptoms are alleviated by nothing, the patient symptoms are aggravated by nothing. It is unknown whether or not the patient has had similar symptoms in the past. The patient has not recently seen a physician. Patient stated that she has had burning with urination for past 5 days. Increased work of breathing with cough for one week. Became worse today. Historical: - Allergies: 19:49 No Known Allergies; rr5 - Home Meds: 21:30 Albuterol Inhl [Active]; benzonatate Oral [Active]; Coumadin Oral [Active]; rr5 esomeprazole magnesium Oral [Active]; Furosemide Oral [Active]; gabapentin Oral [Active]; Glimepiride Oral [Active]; insulin regular human inhalation [Active]; losartan Oral [Active]; Levothroid Oral [Active]; mometasone inhalation [Active]; montelukast Oral [Active]; Naproxen Oral [Active]; pioglitazone Oral [Active]; potassium chloride (bulk) miscellaneous [Active]; Simvastatin Oral [Active]; - PMHx: 19:49 CHF; Diabetes - IDDM; Diabetes - NIDDM; Home O2 at 2L NC as needed; Hyperlipidemia; rr5 Hypertension; Thyroid problem; uterine cancer; 21:30 COPD; neuropathy; rr5 - PSHx: 19:49 valve replacement; rr5 - Immunization history:: Adult Immunizations up to date. - Social history:: Smoking status: unknown Patient/guardian denies using alcohol, street drugs, tobacco products. ROS: 21:13 Eyes: Negative for injury, pain, redness, and discharge, ENT: Negative for injury, jr8 pain, and discharge, Neck: Negative for injury, pain, and swelling, Cardiovascular: Negative for chest pain, palpitations, and edema, Abdomen/GI: Negative for abdominal pain, nausea, vomiting, diarrhea, and constipation, Back: Negative for injury and pain, MS/Extremity: Negative for injury and deformity, Skin: Negative for injury, rash, and discoloration, Neuro: Negative for headache, weakness, numbness, tingling, and seizure. 21:13 Respiratory: Positive for cough, shortness of breath. 21:13 : Positive for urinary symptoms. Exam: 21:13 Eyes: Pupils equal round and reactive to light, extra-ocular motions intact. Lids and jr8 lashes normal. Conjunctiva and sclera are non-icteric and not injected. Cornea within normal limits. Periorbital areas with no swelling, redness, or edema. ENT: Nares patent. No nasal discharge, no septal abnormalities noted. Tympanic membranes are normal and external auditory canals are clear. Oropharynx with no redness, swelling, or masses, exudates, or evidence of obstruction, uvula midline. Mucous membranes moist. Neck: Trachea midline, no thyromegaly or masses palpated, and no cervical lymphadenopathy. Supple, full range of motion without nuchal rigidity, or vertebral point tenderness. No Meningismus. Cardiovascular: Regular rate and rhythm with a normal S1 and S2. No gallops, murmurs, or rubs. Normal PMI, no JVD. No pulse deficits. Respiratory: Lungs have equal breath sounds bilaterally. Bibasaillar crakles present. No increased work of breathing, no retractions or nasal flaring. Abdomen/GI: Soft, non-tender, with normal bowel sounds. No distension or tympany. No guarding or rebound. No evidence of tenderness throughout. Back: No spinal tenderness. No costovertebral tenderness. Full range of motion. Skin: Warm, dry with normal turgor. Normal color with no rashes, no lesions, and no evidence of cellulitis. MS/ Extremity: Pulses equal, no cyanosis. Neurovascular intact. Full, normal range of motion. Neuro: Awake and alert, GCS 15, oriented to person, place, time, and situation. Cranial nerves II-XII grossly intact. Motor strength 5/5 in all extremities. Sensory grossly intact. Vital Signs: 19:45 BP 117 / 47; Pulse 78; Resp 21; Temp 99.1; Pulse Ox 88% on R/A; Weight 129.27 kg; rr5 Height 5 ft. 2 in. (157.48 cm); Pain 8/10; 20:00 BP 110 / 60; Pulse 85; Resp 20; Pulse Ox 96% on 2 lpm NC; rr5 21:27 BP 113 / 46; Pulse 74; Resp 19; Pulse Ox 97% on 2 lpm NC; rr5 22:25 BP 117 / 58; Pulse 72; Resp 20; Temp 99; Pulse Ox 99% on 2 lpm NC; rr5 23:06 BP 114 / 43; Pulse 73; Resp 19; Temp 99.1; Pulse Ox 99% on 2 lpm NC; rr5 19:45 Body Mass Index 52.13 (129.27 kg, 157.48 cm) rr5 19:45 hooked to oxygen at 2 liters rr5 MDM: 20:19 Patient medically screened. jr8 21:10 Data reviewed: vital signs, nurses notes, lab test result(s), EKG, radiologic studies, jr8 plain films. Data interpreted: Pulse oximetry: on room air is 88 %. Interpretation: hypoxia. Counseling: I had a detailed discussion with the patient and/or guardian regarding: the historical points, exam findings, and any diagnostic results supporting the discharge/admit diagnosis, lab results, radiology results, the need for further work-up and treatment in the hospital. 05/12 19:50 Order name: Amylase, Serum; Complete Time: 21:10 [facility] 05/12 19:50 Order name: Basic Metabolic Panel; Complete Time: 21:10 [facility] 05/12 19:50 Order name: Blood Culture Adult (2) [facility] 05/12 19:50 Order name: CBC with Diff; Complete Time: 21:47 [facility] 05/12 19:50 Order name: Ckmb; Complete Time: 21:10 [facility] 05/12 19:50 Order name: CPK; Complete Time: 21:10 [facility] 05/12 19:50 Order name: Lactate; Complete Time: 21:01 [facility] 05/12 19:50 Order name: LFT's; Complete Time: 21:10 [facility] 05/12 19:50 Order name: Lipase; Complete Time: 21:10 [facility] 05/12 19:50 Order name: Procalcitonin; Complete Time: 21:15 [facility] 05/12 19:50 Order name: Protime (+inr); Complete Time: 21:01 5 05/12 19:50 Order name: Ptt, Activated; Complete Time: 21:01 5 05/12 19:50 Order name: Troponin (emerg Dept Use Only); Complete Time: 21:10 5 05/12 19:50 Order name: Urine Microscopic Only; Complete Time: 22:41 5 05/12 19:50 Order name: Chest Single View XRAY; Complete Time: 20:39 5 05/12 19:50 Order name: Accucheck; Complete Time: 20:31 rr5 05/12 19:50 Order name: Cardiac monitoring; Complete Time: 20:31 5 05/12 19:50 Order name: EKG - Nurse/Tech; Complete Time: 20:31 5 05/12 20:39 Order name: COVID-[address] [facility] 05/12 20:43 Order name: C-Reactive Protein; Complete Time: 21:10 EDMS 05/12 20:43 Order name: Ferritin; Complete Time: 21:10 EDMS 05/12 21:01 Order name: Urine Dipstick--Ancillary (enter results) [facility] 05/12 21:40 Order name: Urine Culture [facility] 05/12 21:42 Order name: CBC Smear Scan; Complete Time: 21:47 EDMS 05/12 22:53 Order name: SARS-COV-2 RT PCR; Complete Time: 23:10 EDMS 05/12 19:50 Order name: IV Saline Lock - Large Bore; Complete Time: 20:31 5 05/12 19:50 Order name: Labs collected and sent; Complete Time: 20:31 [facility] 05/12 19:50 Order name: O2 Per Protocol; Complete Time: 20:31 5 05/12 19:50 Order name: O2 Sat Monitoring; Complete Time: 20:31 5 05/12 19:50 Order name: Urine Dipstick-Ancillary (obtain specimen); Complete Time: 20:59 rr5 Administered Medications: 20:40 Not Given (Physician Discretion): NS 0.9% (30 ml/kg) 30 ml/kg IV at bolus once; Sepsis 8 Protocol 20:50 Drug: Rocephin 1 grams Route: IV; Rate: calculated rate; Site: right forearm; rr5 21:00 Follow up: Response: No adverse reaction; IV Status: Completed infusion; IV Intake: 39ycmy4 21:00 Dru mg of (Zithromax 500 mg, NS 0.9% 250 ml) Route: IVPB; Infused Over: 1 hrs; rr5 Site: right forearm; 22:00 Follow up: Response: No adverse reaction; IV Status: Completed infusion; IV Intake: rr5 250ml Disposition: 05/13 06:13 Co-signature as Attending Physician, João Bertrand MD. 7 Disposition: 05/12/20 21:13 Hospitalization ordered by Anthony Omer for Inpatient Admission. Preliminary diagnosis are Acute respiratory failure with hypoxia, Coronavirus infection, unspecified, Acute cystitis. - Bed requested for Telemetry/MedSurg (Inpatient). - Status is Inpatient Admission. rr5 - Condition is Fair. - Problem is new. - Symptoms have improved. Signatures: Dispatcher [employer] EDMS Kirit Guerrero PA PA jr8 Lucy Soto RN RN tl1 Rito Jarvis RN RN rr5 João Bertrand MD MD 7 Corrections: (The following items were deleted from the chart) 05/12 20:43 20:40 FERRITIN+C.LAB.BRZ ordered. EDMS EDMS 20:43 20:40 C-REACTIVE PROTEIN+C.LAB.BRZ ordered. EDMS EDMS 21:22 20:40 Malin ordered. jr8 rr5 23:05 21:13 Hospitalization Ordered by Anthony Omer for Inpatient Admission. Preliminary tl1 diagnosis is Acute respiratory failure with hypoxia; Coronavirus infection, unspecified; Acute cystitis. Bed requested for Telemetry/MedSurg (Inpatient). Status is Inpatient Admission. Condition is Fair. Problem is new. Symptoms have improved. jr8 23:33 23:05 05/12/2020 21:13 Hospitalization Ordered by Anthony Omer for Inpatient rr5 Admission. Preliminary diagnosis is Acute respiratory failure with hypoxia; Coronavirus infection, unspecified; Acute cystitis. Bed requested for Telemetry/MedSurg (Inpatient). Status is Inpatient Admission. Condition is Fair. Problem is new. Symptoms have improved. tl1
--- NOTE | 2020-05-12 21:14 | ER ---
Nurse's Notes [facility] Name: Tessie Michaud Age: 60 yrs Sex: Female : 1960 Arrival Date: 05/12/2020 Time: 19:44 Bed 8 Private MD: Diagnosis: Acute respiratory failure with hypoxia;Coronavirus infection, unspecified;Acute cystitis Presentation: 05/12 19:45 Chief complaint: EMS states: patient complaint of recurrent UTI and general weakness. rr5 Coronavirus screen: Client denies travel out of the [place] in the last 14 days. cough unrelated to allergies, diarrhea, fatigue, shortness of breath, Client presents with at least one sign or symptom that may indicate coronavirus-19. Standard/surgical mask placed on the client. Provider contacted for isolation considerations. Ebola Screen: Patient negative for fever greater than or equal to 101.5 degrees Fahrenheit, and additional compatible Ebola Virus Disease symptoms Patient denies exposure to infectious person. Patient denies travel to an Ebola-affected area in the 21 days before illness onset. Initial Sepsis Screen: Does the patient meet any 2 criteria? RR > 20 per min. Yes Does the patient have a suspected source of infection? Yes: Dysuria/Frequency/Urgency/UTI Risk Assessment: Do you want to hurt yourself or someone else? Patient reports no desire to harm self or others. Onset of symptoms was May 12, 2020. 19:45 Method Of Arrival: EMS: [facility] rr5 19:45 Acuity: KATIA 2 rr5 19:45 Note using oxygen at home PRN. when we arrived O2 saturation 88% on RA hooked to oxygen rr5 at 2 liters via nasal cannula. Historical: - Allergies: 19:49 No Known Allergies; rr5 - Home Meds: 21:30 Albuterol Inhl [Active]; benzonatate Oral [Active]; Coumadin Oral [Active]; rr5 esomeprazole magnesium Oral [Active]; Furosemide Oral [Active]; gabapentin Oral [Active]; Glimepiride Oral [Active]; insulin regular human inhalation [Active]; losartan Oral [Active]; Levothroid Oral [Active]; mometasone inhalation [Active]; montelukast Oral [Active]; Naproxen Oral [Active]; pioglitazone Oral [Active]; potassium chloride (bulk) miscellaneous [Active]; Simvastatin Oral [Active]; - PMHx: 19:49 CHF; Diabetes - IDDM; Diabetes - NIDDM; Home O2 at 2L NC as needed; Hyperlipidemia; rr5 Hypertension; Thyroid problem; uterine cancer; 21:30 COPD; neuropathy; rr5 - PSHx: 19:49 valve replacement; rr5 - Immunization history:: Adult Immunizations up to date. - Social history:: Smoking status: unknown Patient/guardian denies using alcohol, street drugs, tobacco products. Screenin:50 Abuse screen: Denies threats or abuse. Denies injuries from another. Abuse screen: rr5 Denies threats or abuse. Nutritional screening: No deficits noted. Tuberculosis screening: No symptoms or risk factors identified. Fall Risk IV access (20 points). Gait- Weak (10 pts.). Total Mcgraw Fall Scale indicates Low Risk Score (25-44 pts). Fall prevention measures have been instituted. Side Rails Up X 2 Placed close to Nursing Station Frequent Obs/Assesments occuring As available Patient and Family Educated on Fall Prevention Program and strategies. Assessment: 19:45 General: Appears in no apparent distress. uncomfortable, ill, Behavior is calm, rr5 cooperative, appropriate for age. 19:45 Pain: Complains of pain in abdomen Pain currently is 6 out of 10 on a pain scale. rr5 Quality of pain is described as aching, Pain began gradually, Is intermittent. Neuro: Level of Consciousness is awake, alert, obeys commands, Oriented to person, place, time, situation, Reports weakness. Cardiovascular: Capillary refill < 3 seconds Patient's skin is warm and dry. Respiratory: Reports cough that is Airway is patent Respiratory effort is even, unlabored, Respiratory pattern is regular, symmetrical. GI: Abdomen is non-distended, obese, Reports lower abdominal pain, upper abdominal pain, diarrhea, nausea, vomiting. : Urine is cloudy, Reports burning with urination. EENT: No signs and/or symptoms were reported regarding the EENT system. Derm: Skin is intact, is healthy with good turgor, Skin temperature is warm. Musculoskeletal: Circulation, motion, and sensation intact. Capillary refill < 3 seconds. 20:45 Reassessment: Patient appears in no apparent distress at this time. Patient is alert, rr5 oriented x 3, equal unlabored respirations, skin warm/dry/pink. 21:15 Reassessment: Patient appears in no apparent distress at this time. Patient is alert, rr5 oriented x 3, equal unlabored respirations, skin warm/dry/pink. hospitalist at bedside assessing the patient. 22:11 Reassessment: Patient appears in no apparent distress at this time. Patient is alert, rr5 oriented x 3, equal unlabored respirations, skin warm/dry/pink. awaiting for covid result to decide which room assignment. 22:57 Reassessment: himanshu from laboratory called for covid positive result. rr5 23:15 Reassessment: Patient appears in no apparent distress at this time. No changes from rr5 previously documented assessment. Patient and/or family updated on plan of care and expected duration. Pain level reassessed. Patient is alert, oriented x 3, equal unlabored respirations, skin warm/dry/pink. Vital Signs: 19:45 BP 117 / 47; Pulse 78; Resp 21; Temp 99.1; Pulse Ox 88% on R/A; Weight 129.27 kg; rr5 Height 5 ft. 2 in. (157.48 cm); Pain 8/10; 20:00 BP 110 / 60; Pulse 85; Resp 20; Pulse Ox 96% on 2 lpm NC; rr5 21:27 BP 113 / 46; Pulse 74; Resp 19; Pulse Ox 97% on 2 lpm NC; rr5 22:25 BP 117 / 58; Pulse 72; Resp 20; Temp 99; Pulse Ox 99% on 2 lpm NC; rr5 23:06 BP 114 / 43; Pulse 73; Resp 19; Temp 99.1; Pulse Ox 99% on 2 lpm NC; rr5 19:45 Body Mass Index 52.13 (129.27 kg, 157.48 cm) rr5 19:45 hooked to oxygen at 2 liters rr5 ED Course: 19:44 Patient arrived in ED. rr5 19:48 Triage completed. rr5 19:49 Patient has correct armband on for positive identification. Placed in gown. Bed in low rr5 position. Call light in reach. Side rails up X2. monitor car operator on. Pulse ox on. NIBP on. 20:00 Arm band placed on right wrist. rr5 20:17 Rito Jarvis RN is Primary Nurse. rr5 20:19 Kirit Guerrero PA is PHCP. jr8 20:19 João Bertrand MD is Attending Physician. jr8 20:26 Chest Single View XRAY In Process Unspecified. EDMS 20:30 Inserted saline lock: 20 gauge in right forearm, using aseptic technique. rr5 20:35 EKG done, by ED staff, reviewed by João Bertrand MD. rr5 21:11 Anthony Omer is Hospitalizing Provider. jr8 21:27 covid 19. rr5 23:07 No provider procedures requiring assistance completed. Patient admitted, IV remains in rr5 place. intact, No redness/swelling at site. Administered Medications: 20:40 Not Given (Physician Discretion): NS 0.9% (30 ml/kg) 30 ml/kg IV at bolus once; Sepsis jr8 Protocol 20:50 Drug: Rocephin 1 grams Route: IV; Rate: calculated rate; Site: right forearm; rr5 21:00 Follow up: Response: No adverse reaction; IV Status: Completed infusion; IV Intake: [id number] 21:00 Dru mg of (Zithromax 500 mg, NS 0.9% 250 ml) Route: IVPB; Infused Over: 1 hrs; rr5 Site: right forearm; 22:00 Follow up: Response: No adverse reaction; IV Status: Completed infusion; IV Intake: rr5 250ml Intake: 21:00 IV: 10ml; Total: 10ml. rr5 22:00 IV: 250ml; Total: 260ml. rr5 Outcome: 21:13 Decision to Hospitalize by Provider. jr8 23:19 Admitted to Tele accompanied by tech, via stretcher, room 401, with oxygen, with chart, rr5 Report called to alex 23:19 Condition: stable 23:19 Instructed on the need for admit. 23:33 Patient left the ED. rr5 Signatures: Dispatcher [employer] EDMS Kirit Guerrero PA PA jr8 Rito Jarvis, RN RN rr5
[2020-05-12 21:39] LABS: Platelet Estimate ADEQ; Urine White Blood Cell Casts OK
[2020-05-12 21:42] LABS: Blood Morphology Comment NOT SEEN (NOT SEEN)
--- NOTE | 2020-05-12 21:45 | P.HP ---
Certification for Inpatient Patient admitted to: Inpatient With expected LOS: >2 Midnights Patient will require the following post-hospital care: None Practitioner: I am a practitioner with admitting privileges, knowledge of patient current condition, hospital course, and medical plan of care. Services: Services provided to patient in accordance with Admission requirements found in Title 42 Section 412.3 of the Code of Federal Regulations Patient History Date of Service: 05/12/20 Primary Care Provider: Cecy Reason for admission: Pneumonia/hypoxia/UTI Allergies No Known Allergies Allergy (Verified 05/07/19 04:19) Home Medications: Albuterol Sulfate [Albuterol Sulfate 0.083% Neb Soln] 1 amp IN TID 01/27/20 Aspirin [Adult Low Dose Aspirin EC] 81 mg PO DAILY 01/27/20 Beclomethasone Dipropionate [Qnasl] 2 sprays IN DAILY 01/27/20 Furosemide [Lasix*] 40 mg PO BIDL 01/27/20 Gabapentin 300 mg PO DAILY 01/27/20 Insulin -Regular Human [Novolin -R*] 10 unit SQ SEECOM 01/27/20 Levothyroxine Sodium 75 mcg PO 0600 01/27/20 Metoprolol Succinate 25 mg PO DAILY 01/27/20 Montelukast Sodium [Singulair] 10 mg PO DAILY 01/27/20 Potassium Chloride [Micro-K] 10 meq PO BID 01/27/20 Sertraline HCl 50 mg PO DAILY 01/27/20 Simvastatin 40 mg PO DAILY AT SUPPER 01/27/20 Spironolactone 25 mg PO DAILY 01/27/20 Albuterol Sulfate [Proair Hfa] 2 puff IH QID 03/12/20 Fluticasone/Vilanterol [Breo Ellipta 100-25 Mcg INH] 1 puff IH DAILY 03/12/20 Insulin Degludec/Liraglutide [Xultophy 100 Unit-3.6MG/ml Pen] 50 units SQ DAILY 03/12/20 Sertraline HCl 50 mg PO DAILY 03/12/20 Amox/Clavulanate [Augmentin 875-125 Tab*] 875 mg PO BID #8 tab 03/16/20 Furosemide [Lasix*] 40 mg PO BID tab 03/16/20 Ipratropium Mdi [Atrovent Hf Inhaler*] 1 puff IH QID PRN inh 03/16/20 Na Bicarb Tab [Sodium Bicarb 325 MG Tab*] 650 mg PO TIDWM tab 03/16/20 Warfarin Sodium 4 mg PO DAILY 6PM 14 Days #14 tablet 03/16/20 - Past Medical/Surgical History Diabetic: Yes -: Hypothyroidism -: Diabetes mellitus type 2, insulin dependent -: COPD -: Hypertension -: Obstructive sleep apnea noncompliant -: UTERINE CA (BARIUM IMPLANTS) -: CHF, diastolic -: Hyperlipidemia -: Obesity -: Recurrent UTI -: Bilateral cataract surgery -: Hemorrhoidectomy -: Aortic valve replacement -: CABG Psychosocial/ Personal History: Patient is single. She lives at home. - Family History Mother -: Diabetes, Other (see notes) Notes: CHF Father -: Diabetes, Cancer Notes: Prostate Cancer Brother -: Diabetes Sister -: Diabetes Notes: Third and sixth nerve palsy - Social History Smoking Status: Former smoker Alcohol use: Yes CD- Drugs: No Caffeine use: No Place of Residence: Home Review of Systems 10-point ROS is otherwise unremarkable Respiratory: Cough, Shortness of Breath Genitourinary: Dysuria, Frequency Physical Examination - Physical Exam General: Alert, In no apparent distress, Oriented x3, Obese HEENT: Atraumatic, Normocephalic, PERRLA Neck: Supple Respiratory: Clear to auscultation bilaterally, Normal air movement Cardiovascular: No edema, Normal pulses, Regular rate/rhythm, Normal S1 S2 Capillary refill: <2 Seconds Gastrointestinal: Normal bowel sounds, Soft and benign, No tenderness, No masses, No rebound, No guarding Musculoskeletal: No contractures, No erythema, No tenderness Integumentary: No significant lesion, No tenderness/swelling, No erythema Neurological: Normal speech, Normal strength at 5/5 x4 extr, Normal tone - Studies Laboratory Data (last 24 hrs) 05/12/20 20:16: PT 21.4 H, INR 1.84, APTT 41.6 H 05/12/20 20:16: WBC 2.8 L, Hgb 8.0 L, Hct 24.6 L, Plt Count 190 05/12/20 20:16: Sodium 135 L, Potassium 4.2, BUN 36 H, Creatinine 1.38 H, Glucose 93, Total Bilirubin 0.3, AST 24, ALT 18, Alkaline Phosphatase 128 H, Amylase 46, Lipase 94 Assessment and Plan - Plan Assessment Acute on chronic hypoxic respiratory failure secondary to pulmonary edema versus bilateral pneumonia-possible COVID Acute on chronic diastolic congestive heart failure Recurrent urinary tract infection Diabetes mellitus type 2 Hypertension Hyperlipidemia Hypothyroidism Plan Acute on chronic hypoxic respiratory failure secondary to pulmonary edema versus bilateral pneumonia-possible COVID: Pulmonology has been consulted on the case. Patient started on Rocephin/Zithromax. Patient also started on steroids as she has history of COPD and it is possible that she has COVID. Patient does have home oxygen to use as needed but she is having increased oxygen demand compared to normal. Will also continue with Lasix for diuresis if this is result of congestive heart failure. DVT prophylaxis Lovenox 40 mg subcutaneous once daily. Acute on chronic diastolic congestive heart failure: Continue with Lasix at this time. Patient without significant pedal edema. Will consult cardiology as necessary. Recurrent urinary tract infection: Previous urine culture sensitive to Rocephin, continue Rocephin at this time. Will follow culture report. Diabetes mellitus type 2: A.c. HS Accu-Cheks, sliding scale insulin therapy. Hypertension: Obtain and continue patient's home medications Hyperlipidemia: Obtain and continue patient's home medications Hypothyroidism: Obtain and continue patient's home medications Discharge Plan: Home Plan to discharge in: 24 Hours - Advance Directives Does patient have a Living Will: No Does patient have a Durable POA for Healthcare: No - Code Status/Comfort Care Code Status Assessed: Yes (Patient is full code) Critical Care: No Time Spent Managing Pts Care (In Minutes): 55
[2020-05-12 22:33] LABS: Urine Culture Reflex Order NOT NEEDED
[2020-05-12 22:34] LABS: Urine Bacteria >50 /HPF (<20); Urine RBC <5 /HPF (NONE SEEN)
[2020-05-12] MEDS ORDERED: ONDANSETRON 4 MG/2 ML VIAL IV PRN (23:21)
[2020-05-12] MEDS ORDERED: ACETAMINOPHEN 500 MG TAB PO PRN (23:21)
[2020-05-13] MEDS ORDERED: HYDROCODONE/APAP 7.5/325 MG TAB PO PRN (02:25)
[2020-05-13 02:49] VITALS: BMI 51.5
[2020-05-13 03:55] LABS: Absolute Lymphocytes (CBC) 0.6 K/uL (0.7-4.9); Basophils % 0.3 % (0-1.3); Hematocrit 26.2 % (36.0-45.0); Lymphocytes % 15.2 % (15.3-44.8); MPV 7.6 fL (7.6-11.3); RBC Red Blood Cell Count 3.59 M/uL (3.86-4.86)
[2020-05-13 04:35] VITALS: O2SAT 93
[2020-05-13 04:36] LABS: C-Reactive Protein 36.5 mg/L (<3.00); Ferritin 611.2 ng/mL (8-388); Potassium 4.7 mmol/L (3.5-5.1)
[2020-05-13] MEDS: INSULIN -REGULAR HUMAN 50 UNIT/0.5 ML ML SQ SCH ×2 (07:30→11:30)
--- NOTE | 2020-05-13 08:39 | EKG ---
Test Date: 2020-05-12 Test Time: 20:27:57 [employer] Duty Manager: RR MEASUREMENT RESULTS: Intervals: Rate: 73 HI: 164 QRSD: 88 QT: 410 QTc: 451 [place]: P: 65 HI: 164 QRS: 90 T: 57 INTERPRETIVE STATEMENTS: Normal sinus rhythm Rightward axis Borderline ECG Compared to ECG 03/12/2020 20:53:08 Right-axis deviation now present Electronically Signed On 05-13-20 08:38:12 CDT by Harpal Hilario
--- NOTE | 2020-05-13 08:59 | P.CNS ---
Date of Consult: 05/13/20 Primary Care Provider: Cecy Chief Complaint: Pneumonia/hypoxia/UTI History of Present Illness: Patient is 60 years of age well known to me with a history of obstructive airways disease admitted with feeling sick for a week she is positive for mata virus is having fever saturations are satisfactory chest x-ray shows multiple bilateral opacities multiple medical problem denies any other GI complaints Allergies No Known Allergies Allergy (Verified 05/07/19 04:19) Home Medications: Albuterol Sulfate [Albuterol Sulfate 0.083% Neb Soln] 1 amp IN TID 01/27/20 Aspirin [Adult Low Dose Aspirin EC] 81 mg PO DAILY 01/27/20 Beclomethasone Dipropionate [Qnasl] 2 sprays IN DAILY 01/27/20 Furosemide [Lasix*] 40 mg PO BIDL 01/27/20 Gabapentin 300 mg PO DAILY 01/27/20 Insulin -Regular Human [Novolin -R*] 10 unit SQ SEECOM 01/27/20 Levothyroxine Sodium 75 mcg PO 0600 01/27/20 Metoprolol Succinate 25 mg PO DAILY 01/27/20 Montelukast Sodium [Singulair] 10 mg PO DAILY 01/27/20 Potassium Chloride [Micro-K] 10 meq PO BID 01/27/20 Sertraline HCl 50 mg PO DAILY 01/27/20 Simvastatin 40 mg PO DAILY AT SUPPER 01/27/20 Spironolactone 25 mg PO DAILY 01/27/20 Albuterol Sulfate [Proair Hfa] 2 puff IH QID 03/12/20 Fluticasone/Vilanterol [Breo Ellipta 100-25 Mcg INH] 1 puff IH DAILY 03/12/20 Insulin Degludec/Liraglutide [Xultophy 100 Unit-3.6MG/ml Pen] 50 units SQ DAILY 03/12/20 Sertraline HCl 50 mg PO DAILY 03/12/20 Amox/Clavulanate [Augmentin 875-125 Tab*] 875 mg PO BID #8 tab 03/16/20 Furosemide [Lasix*] 40 mg PO BID tab 03/16/20 Ipratropium Mdi [Atrovent Hf Inhaler*] 1 puff IH QID PRN inh 03/16/20 Na Bicarb Tab [Sodium Bicarb 325 MG Tab*] 650 mg PO TIDWM tab 03/16/20 Warfarin Sodium 4 mg PO DAILY 6PM 14 Days #14 tablet 03/16/20 - Past Medical/Surgical History Diabetic: Yes -: Hypothyroidism -: Diabetes mellitus type 2, insulin dependent -: COPD -: Hypertension -: Obstructive sleep apnea noncompliant -: UTERINE CA (BARIUM IMPLANTS) -: CHF, diastolic -: Hyperlipidemia -: Obesity -: Recurrent UTI -: Bilateral cataract surgery -: Hemorrhoidectomy -: Aortic valve replacement -: CABG Psychosocial/ Personal History: Patient is single. She lives at home. - Family History Mother Medical History: Lung disease, Diabetes, Other (see notes) Notes: CHF and COPD Father Medical History: Heart disease, Hypertension, Diabetes, Cancer Notes: Prostate Cancer Brother Medical History: Diabetes Sister Medical History: Diabetes Notes: Third and sixth nerve palsy - Social History Smoking Status: Unknown if ever smoked Alcohol use: No CD- Drugs: No Caffeine use: Yes Place of Residence: Home Review of Systems General: Weakness Respiratory: Shortness of Breath Physical Examination Temp Pulse Resp BP Pulse Ox 99.8 F 73 24 H 92/53 L 93 05/13/20 05:30 05/13/20 08:12 05/13/20 04:00 05/13/20 08:12 05/13/20 04:00 Laboratory Data (last 24 hrs) 05/12/20 20:16: PT 21.4 H, INR 1.84, APTT 41.6 H 05/12/20 20:16: WBC 2.8 L, Hgb 8.0 L, Hct 24.6 L, Plt Count 190 05/12/20 20:16: Sodium 135 L, Potassium 4.2, BUN 36 H, Creatinine 1.38 H, Glucose 93, Total Bilirubin 0.3, AST 24, ALT 18, Alkaline Phosphatase 128 H, Amylase 46, Lipase 94 - Problems (1) Coronavirus infection Current Visit: Yes Status: Acute Plan: Patient is 60 years of age tested positive for mata virus she is doing better minimal oxygen requirement chest x-ray shows bilateral opacities fever on admission CRP less than 50 patient is on Lasix at home white count is a little low an mild chronic anemia renal function stable Dc antibiotics for now change to p.o. levofloxacin cannot exclude community-acquired pneumonia patient does take inhale steroids at home
[2020-05-13] MEDS ORDERED: ENOXAPARIN 40 MG/0.4 ML SQ SCH (09:00)
[2020-05-13] MEDS ORDERED: levoFLOXacin 500 MG TAB PO SCH (09:00)
[2020-05-13] MEDS ORDERED: FUROSEMIDE 40 MG/4 ML VIAL IV SCH (09:00)
[2020-05-13] MEDS ORDERED: ASCORBIC ACID 500 MG TABLET PO SCH (09:00)
[2020-05-13] MEDS ORDERED: predniSONE 10 MG TAB PO SCH (09:00)
[2020-05-13] MEDS ORDERED: THIAMINE 200 MG/2 ML INJ IVP SCH (09:00)
[2020-05-13] MEDS ORDERED: VITAMIN D 1000 UNIT TAB PO SCH (09:00)
[2020-05-13] MEDS ORDERED: METHYLPREDNISOLONE 40 MG INJ IV SCH (09:00)
[2020-05-13] MEDS ORDERED: AZITHROMYCIN IV 500 MG in NA CHLORIDE 0.9% 250 ML IVPB SCH (09:00)
--- NOTE | 2020-05-13 11:47 | P.DS ---
Admission Date: 05/12/20 Discharge Date: 05/13/20 Primary Care Provider: Cecy Disposition: ROUTINE DISCHARGE Discharge Condition: FAIR Reason for Admission: Pneumonia/hypoxia/UTI Consultations: Pulmonology-Dr. Sanchez - Problems (1) Acute and chronic respiratory failure Onset Date: 06/04/17 Status: Acute Qualifiers: Respiratory failure complication: hypoxia Qualified Code(s): J96.21 - Acute and chronic respiratory failure with hypoxia (2) Acute on chronic diastolic (congestive) heart failure Onset Date: 06/04/17 Status: Acute (3) UTI (urinary tract infection) Onset Date: 01/08/17 Status: Acute Qualifiers: Urinary tract infection type: acute cystitis Hematuria presence: without hematuria Qualified Code(s): N30.00 - Acute cystitis without hematuria (4) COPD with acute exacerbation Onset Date: 10/09/17 Status: Chronic (5) Pneumonia Status: Acute (6) COVID-19 Status: Acute Brief History of Present Illness: 60-year-old woman with a history of chronic respiratory failure on p.r.n. home oxygen, history of recurrent UTI, history of COPD presented to the emergency department with a complaint of generalized weakness. Her UA in the ED suggested the presence of UTI. No leukocytosis. Chest x-ray showed bilateral pulmonary opacities. Patient was admitted for further management. Hospital Course: Patient admitted to the medical floor and started on IV antibiotics. She tested positive for COVID. Urine culture reported polymicrobial growth. Patient was at baseline respiratory status during the hospital stay. She was asymptomatic when I saw her this morning and clinically stable. Patient seen and evaluated by pulmonology-Dr. Sanchez. Antibiotics switched to oral levaquin to cover both UTI and possible bacterial superimposed pneumonia. She is also placed on oral prednisone to help treat the COVID pneumonia. Patient is deemed clinically stable for discharge. She is informed to return to the ED for the symptoms worsen or develop more shortness of breath despite treatment. She is prescribed oral Levaquin to continue treatment for the UTI. Vital Signs/Physical Exam: Temp Pulse Resp BP Pulse Ox 97.7 F 73 18 92/53 L 94 05/13/20 08:00 05/13/20 08:12 05/13/20 08:00 05/13/20 08:12 05/13/20 08:00 General: Alert, In no apparent distress, Oriented x3 HEENT: Mucous membr. moist/pink Neck: Supple, JVD not distended Respiratory: Crackles/rales (Mild bibasilar crackles) Cardiovascular: No edema, Regular rate/rhythm, Normal S1 S2 Gastrointestinal: Normal bowel sounds, Soft and benign, Non-distended, No tenderness Musculoskeletal: No swelling, No erythema Integumentary: No rashes Neurological: Other (Nonfocal.) Laboratory Data at Discharge: WBC 3.8 K/uL (4.3-10.9) L D 05/13/20 03:18 Hgb 8.5 g/dL (12.0-15.0) L 05/13/20 03:18 Hct 26.2 % (36.0-45.0) L 05/13/20 03:18 Plt Count 207 K/uL (152-406) 05/13/20 03:18 PT 21.4 SECONDS (9.5-12.5) H 05/12/20 20:16 INR 1.84 05/12/20 20:16 APTT 41.6 SECONDS (24.3-36.9) H 05/12/20 20:16 Sodium 137 mmol/L (136-145) 05/13/20 03:18 Potassium 4.7 mmol/L (3.5-5.1) 05/13/20 03:18 BUN 35 mg/dL (7-18) H 05/13/20 03:18 Creatinine 1.20 mg/dL (0.55-1.3) 05/13/20 03:18 Glucose 91 mg/dL (74-106) 05/13/20 03:18 Total Bilirubin 0.3 mg/dL (0.2-1.0) 05/12/20 20:16 AST 24 U/L (15-37) 05/12/20 20:16 ALT 18 U/L (12-78) 05/12/20 20:16 Alkaline Phosphatase 128 U/L (45-117) H 05/12/20 20:16 Amylase 46 U/L (25-115) 05/12/20 20:16 Lipase 94 U/L (73-393) 05/12/20 20:16 Home Medications: Albuterol Sulfate [Albuterol Sulfate 0.083% Neb Soln] 1 amp IN TID 01/27/20 Aspirin [Adult Low Dose Aspirin EC] 81 mg PO DAILY 01/27/20 Beclomethasone Dipropionate [Qnasl] 2 sprays IN DAILY 01/27/20 Furosemide [Lasix*] 40 mg PO BIDL 01/27/20 Gabapentin 300 mg PO DAILY 01/27/20 Insulin -Regular Human [Novolin -R*] 10 unit SQ SEECOM 01/27/20 Levothyroxine Sodium 75 mcg PO 0600 01/27/20 Metoprolol Succinate 25 mg PO DAILY 01/27/20 Montelukast Sodium [Singulair] 10 mg PO DAILY 01/27/20 Potassium Chloride [Micro-K] 10 meq PO BID 01/27/20 Sertraline HCl 50 mg PO DAILY 01/27/20 Simvastatin 40 mg PO DAILY AT SUPPER 01/27/20 Spironolactone 25 mg PO DAILY 01/27/20 Albuterol Sulfate [Proair Hfa] 2 puff IH QID 03/12/20 Fluticasone/Vilanterol [Breo Ellipta 100-25 Mcg INH] 1 puff IH DAILY 03/12/20 Insulin Degludec/Liraglutide [Xultophy 100 Unit-3.6MG/ml Pen] 50 units SQ DAILY 03/12/20 Ipratropium Mdi [Atrovent Hf Inhaler*] 1 puff IH QID PRN inh 03/16/20 Na Bicarb Tab [Sodium Bicarb 325 MG Tab*] 650 mg PO TIDWM tab 03/16/20 Warfarin Sodium 4 mg PO DAILY 6PM 14 Days #14 tablet 03/16/20 Ascorbic Acid [Vitamin C*] 500 mg PO TID #90 tablet 05/13/20 Cholecalciferol (Vitamin D3) [Vitamin D 1000 Iu Tab*] 2,000 unit PO DAILY #60 tab 05/13/20 levoFLOXacin [Levaquin*] 500 mg PO DAILY #7 tab 05/13/20 predniSONE [Deltasone*] 10 mg PO BID #10 tab 05/13/20 New Medications: predniSONE [Deltasone*] 10 mg PO BID #10 tab levoFLOXacin [Levaquin*] 500 mg PO DAILY #7 tab Ascorbic Acid [Vitamin C*] 500 mg PO TID #90 tablet Cholecalciferol (Vitamin D3) [Vitamin D 1000 Iu Tab*] 2,000 unit PO DAILY #60 tab Diet: AHA Activity: Ad klbeer Followup: Jermaine Sanchez MD [ACTIVE - CAN ADMIT] - 1-2 Weeks Time spent managing pt's care (in minutes): 34
[2020-05-13 12:08] VITALS: BP 95/53; TEMP 97.9
[2020-05-13] MEDS ORDERED: CEFTRIAXONE/SWI 1gm 1 GM/10 ML SYR IV SCH (21:00)
== END 2020-05-13 13:30 | disposition home or self-care (01) | DRG 177 ==
LOC: ER 19:33 → ERHOLD 21:31 → 4TH 23:19
PROVIDERS: ADMIT Internal Medicine; ATTEND Internal Medicine
DX: U07.1 COVID-19 (principal); J12.89 Other viral pneumonia; J96.21 Acute and chronic respiratory failure with hypoxia; I50.33 Acute on chronic diastolic (congestive) heart failure; Z68.43 Body mass index [BMI] 50.0-59.9, adult; E11.9 Type 2 diabetes mellitus without complications; E03.9 Hypothyroidism, unspecified; I11.0 Hypertensive heart disease with heart failure; E78.5 Hyperlipidemia, unspecified; G47.33 Obstructive sleep apnea (adult) (pediatric); E66.9 Obesity, unspecified; Z79.4 Long term (current) use of insulin; Z95.1 Presence of aortocoronary bypass graft; Z99.81 Dependence on supplemental oxygen; Z79.01 Long term (current) use of anticoagulants; Z95.2 Presence of prosthetic heart valve; Z79.51 Long term (current) use of inhaled steroids
CPT/HCPCS: 36415; 71045; 80048; 80076; 81015; 82150; 82550; 82553; 82728; 82947; 83605; 83690; 84145; 84484; 85025; 85610; 85730; 86140; 87040; 87077; 87086; 87088; 87186; 93005; 96365; 96375; 99285; J0456; J0696; J1650; J2405; J2920; J3411; J7050; J7512; U0003